=== PATIENT | female | born 1930 | race American Indian/Alaskan Native ===

== ENCOUNTER 2018-12-26 21:53 | Inpatient (IN) | payer MEDICARE, MEDICAID ==
[2018-12-26] MEDS ORDERED: dilTIAZem 25 MG/5 ML INJ IV ONE (22:20)
[2018-12-26] MEDS ORDERED: dilTIAZem 25 MG/5 ML INJ ONE (22:21)
[2018-12-26] MEDS ORDERED: AMIODARONE 150 MG in DEXTROSE 5% IN WATER 100 ML IV ONE (22:22)
[2018-12-26] MEDS ORDERED: AMIODARONE 150 MG/3 ML INJ IV ONE (22:26)
[2018-12-26] MEDS ORDERED: SODIUM CHLORIDE 0.9% 1000 ML 1,000 ML IV ONE ×2 (22:34→22:36)
[2018-12-26] MEDS ORDERED: ACETAMINOPHEN 650 MG RECT SUPP PR ONE ×2 (22:35→22:38)
[2018-12-26] MEDS ORDERED: cefTRIAXone/NS 2 GM/100 ML 2 GM/100 ML BAG IV ONE (22:38)
[2018-12-26] MEDS ORDERED: AMIODARONE 900 MG in DEXTROSE 5% IN WATER 482 ML IV SCH (23:00)
[2018-12-26 23:19] LABS: Hematocrit 40.2 % (30.3-42.9); Hemoglobin 13.2 gm/dl (10.1-14.3); Mean Corpuscular HGB Conc 33 % (30-34); Mean Corpuscular Volume 89 fl (79-97); Platelet Count 202 K/mm3 (140-440); Red Blood Count 4.53 M/mm3 (3.65-5.03); Red Cell Distribution Width 14.8 % (13.2-15.2)
--- NOTE | 2018-12-26 23:26 | XRay Report ---
CHEST 1 VIEW 2232 INDICATION / CLINICAL INFORMATION: Chest Pain. COMPARISON: None available. FINDINGS: SUPPORT DEVICES: None HEART / MEDIASTINUM: Heart size appears within normal limits. Aortic ectasia and tortuosity are seen. LUNGS / PLEURA: Increased density is noted in the right base which may be partly due to rotation but I am concerned this could represent developing pneumonitis. Left lung field is clear. No pneumothorax . ADDITIONAL FINDINGS: No significant additional findings. IMPRESSION: Possible right basilar pneumonitis. Recommend follow-up and clinical correlation. Signer Name: Emeka Limon MD Signed: 12/26/2018 11:21 PM Workstation Name: [id number]
[2018-12-26 23:31] LABS: INR 1.26 (0.87-1.13)
--- NOTE | 2018-12-26 23:37 | Emergency Department Report ---
ED Fever HPI - General Chief Complaint: Fever Stated Complaint: FEVER/AMS Time Seen by Provider: 12/26/18 22:16 Source: family - History of Present Illness Initial Comments: 88-year-old -[place] female with a past medical history dementia, presents to ED fever, cough, lethargy, and no palpitations. Upon arrival to the ED patient's Heart rate was found to be normal 140s-160s. Although she is alt ered most of the time due to dementia, patient's daughter states that she is way more altered today. No chest pain, n/v. ED Review of Systems ROS: Stated complaint: FEVER/AMS Other details as noted in HPI Comment: Unobtainable due to pts medical conditions ED Past Medical Hx - Past Medical History Previous Medical History?: Yes Hx Hypertension: Yes Hx Diabetes: Yes Hx Dementia: Yes - Social History Smoking Status: Never Smoker Substance Use Type: None ED Physical Exam - General Limitations: Altered Mental Status General appearance: in distress - Head Head exam: Present: atraumatic, normocephalic - Eye Eye exam: Present: normal appearance, PERRL, EOMI - ENT ENT exam: Present: normal exam - Neck Neck exam: Present: normal inspection - Respiratory Respiratory exam: Present: decreased breath sounds - Cardiovascular Cardiovascular Exam: Present: tachycardia - GI/Abdominal GI/Abdominal exam: Present: soft - Neurological Exam Neurological exam: Present: altered - Skin Skin exam: Present: warm, dry ED Course Vital Signs 12/26/18 12/27/18 22:15 00:02 Temperature 104.9 F H Pulse Rate 154 H 132 H Respiratory 26 H 19 Rate Blood Pressure 145/20 Blood Pressure 145/20 109/76 [Left] O2 Sat by Pulse 94 94 Oximetry ED Medical Decision Making - Lab Data Result diagrams: 12/26/18 22:44 12/26/18 22:44 - EKG Data -: EKG Interpreted by Me EKG shows normal: ST-T waves Rate: tachycardia - EKG Data Interpretation: other 12/26/18 23:37 wide complex tachycardia, 160s. - Radiology Data Radiology results: report reviewed - Medical Decision Making EKG showed irregular wide complex tachycardia, Patient received 150mg iv amiodorone, and then started on amiodorone drip. Discussed with Rugby Union Footballer. Code sepsis called. Critical Care Time: Yes Critical care time in (mins) excluding proc time.: 45 Critical care attestation.: If time is entered above; I have spent that time in minutes in the direct care of this critically ill patient, excluding procedure time. ED Disposition Clinical Impression: Sepsis due to pneumonia, Wide-complex tachycardia Disposition: DC-09 OP ADMIT IP TO THIS HOSP Is pt being admited?: Yes Does the pt Need Aspirin: Yes Condition: Critical Instructions: Bacterial Pneumonia (ED)
[2018-12-26 23:47] LABS: Calcium 11.3 mg/dL (8.4-10.2)
[2018-12-26 23:49] LABS: Chol/HDL Ratio 4.41 %
[2018-12-26 23:52] LABS: Albumin 3.4 g/dL (3.9-5); Bilirubin,Direct 0.4 mg/dL (0-0.2)
--- NOTE | 2018-12-26 23:55 | History and Physical Report ---
Medications and Allergies Allergies Allergy/AdvReac Type Severity Reaction Status Date / Time levofloxacin [From Levaquin] Allergy Unknown Verified 12/26/18 23:35 sertraline [From Zoloft] AdvReac Unknown Verified 12/26/18 23:35 strawberry AdvReac Swelling Verified 12/26/18 23:35 Active Meds: Active Medications Amiodarone HCl 900 mg/ (Dextrose) 500 mls @ 33.333 mls/hr IV DIRECT ROBERTO; Protocol Last Admin: 12/26/18 23:00 Dose: 1 mg/min, 33.333 mls/hr Documented by: Sodium Chloride (Sodium Chloride Flush Syringe 10 Ml) 10 ml IV PRN PRN PRN Reason: LINE FLUSH Exam - Constitutional Vitals: Temp Pulse Resp BP Pulse Ox 104.9 F H 154 H 26 H 145/20 94 12/26/18 22:15 12/26/18 22:15 12/26/18 22:15 12/26/18 22:15 12/26/18 22:15 Results - Labs CBC & Chem 7: 12/26/18 22:44 12/26/18 22:44 Labs: Abnormal lab results 12/26/18 12/26/18 12/26/18 Range/Units 22:44 22:44 22:44 WBC 20.5 H (4.5-11.0) K/mm3 PT 15.5 H (12.2-14.9) Sec. INR 1.26 H (0.87-1.13) APTT 41.0 H (24.2-36.6) Sec. Potassium 3.0 L (3.6-5.0) mmol/L BUN 58 H (7-17) mg/dL Creatinine 2.0 H (0.7-1.2) mg/dL Glucose 120 H (65-100) mg/dL Calcium 11.3 H (8.4-10.2) mg/dL Direct Bilirubin (0-0.2) mg/dL AST (5-40) units/L Troponin T (0.00-0.029) ng/mL NT-Pro-B Natriuret Pep 1809 H (0-900) pg/mL Albumin (3.9-5) g/dL Triglycerides (2-149) mg/dL LDL Cholesterol Direct (50-130) mg/dL HDL Cholesterol (40-59) mg/dL 12/26/18 12/26/18 12/26/18 Range/Units 22:44 22:44 23:00 WBC (4.5-11.0) K/mm3 PT (12.2-14.9) Sec. INR (0.87-1.13) APTT (24.2-36.6) Sec. Potassium (3.6-5.0) mmol/L BUN (7-17) mg/dL Creatinine (0.7-1.2) mg/dL Glucose (65-100) mg/dL Calcium 11.1 H (8.4-10.2) mg/dL Direct Bilirubin 0.4 H (0-0.2) mg/dL AST 109 H (5-40) units/L Troponin T 0.037 H (0.00-0.029) ng/mL NT-Pro-B Natriuret Pep (0-900) pg/mL Albumin 3.4 L (3.9-5) g/dL Triglycerides 201 H (2-149) mg/dL LDL Cholesterol Direct 46 L (50-130) mg/dL HDL Cholesterol 31 L (40-59) mg/dL
[2018-12-26] MEDS ORDERED: ASPIRIN 300 MG RECT SUPP PR ONE (23:58)
[2018-12-27 00:50] LABS: Calcium 10.6 mg/dL (8.4-10.2)
--- NOTE | 2018-12-27 02:45 | Cat Scan Report ---
CT CHEST WITHOUT CONTRAST INDICATION / CLINICAL INFORMATION: fever cough. TECHNIQUE: Axial CT images were obtained through the chest without contrast. All CT scans at this location are p erformed using CT dose reduction for ALARA by means of automated exposure control. COMPARISON: No prior CT. Chest radiograph dated 12/26/18 FINDINGS: HEART: Upper normal size. Moderate coronary artery calcifications. THORACIC AORTA: No significant abnormality. MEDIASTINUM and JC: Mildly prominent subcarinal lymph node is likely reactive. LUNGS: Dense airspace consolidation of the right lower lobe with air bronchograms characteristic of p neumonia. Remainder of the right lung and the left lung appear clear. Small subpleural nodule in the left lower lobe. PLEURA: No significant pleural effusion. No pneumothorax. ADDITIONAL FINDINGS: None. UPPER ABDOMEN: No significant abnormality. SKELETAL SYSTEM: No significant abnormality. IMPRESSION: 1. Right lower lobe pneumonia. Signer Name: Marbin Mckenzie MD Signed: 12/27/2018 2:41 AM Workstation Name: [id number]
[2018-12-27] MEDS ORDERED: ACETAMINOPHEN 650 MG RECT SUPP PR PRN (03:43)
[2018-12-27] MEDS ORDERED: ONDANSETRON 4 MG/2 ML INJ IV PRN (03:43)
--- NOTE | 2018-12-27 03:53 | History and Physical Report ---
History of Present Illness Date of examination: 12/27/18 History of present illness: 88 -year-old woman with a history of hypertension, diabetes, dementia was brought to the emergency room because for the last 2 weeks she has become weak decrease oral intake and less responsive per the daughter. Complained that she has a sore throat, no cough or fever Review of system is unobtainable PAST MEDICAL HISTORY:hypertension, diabetes, dementia PAST SURGICAL HISTORY: Repair, hemorrhoidectomy FAMILY HISTORY:hypertension, diabetes SOCIAL HISTORY: Denies tobacco, drugs, alcohol Medications and Allergies Allergies Allergy/AdvReac Type Severity Reaction Status Date / Time levofloxacin [From Levaquin] Allergy Unknown Verified 12/26/18 23:35 sertraline [From Zoloft] AdvReac Unknown Verified 12/26/18 23:35 strawberry AdvReac Swelling Verified 12/26/18 23:35 Home Medications Medication Instructions Recorded Confirmed Last Taken Type Albuterol Sulfate [Proair 90 mcg IH PRN 12/27/18 12/27/18 Unknown History Respiclick] Fluticasone [Flonase] 250 mcg IH PRN 12/27/18 12/27/18 Unknown History Glimepiride [Amaryl] 1 mg PO QDAY 12/27/18 12/27/18 Unknown History Hydralazine HCl 50 mg PO TID 12/27/18 12/27/18 Unknown History Sertraline [Zoloft] 100 mg PO QDAY 12/27/18 12/27/18 Unknown History hydroCHLOROthiazide [HCTZ] 25 mg PO QDAY 12/27/18 12/27/18 Unknown History traMADol [Ultram] 50 mg PO TID 12/27/18 12/27/18 Unknown History Active Meds: Active Medications Acetaminophen (Tylenol) 650 mg TN Q4H PRN PRN Reason: Pain MILD(1-3)/Fever >100.5/DUNBAR Enoxaparin Sodium (Lovenox) 30 mg SUB-Q QDAY ROBERTO Amiodarone HCl 900 mg/ (Dextrose) 500 mls @ 33.333 mls/hr IV DIRECT ROBERTO; Protocol Last Admin: 12/26/18 23:00 Dose: 1 mg/min, 33.333 mls/hr Documented by: Dextrose/Sodium Chloride (D5/0.45ns) 1,000 mls @ 75 mls/hr IV DIRECT ROBERTO Potassium Chloride (Kcl 10meq/100ml) 10 meq in 100 mls @ 100 mls/hr IV Q1H ROBERTO Stop: 12/27/18 07:59 Piperacillin Sod/Tazobactam Sod (Zosyn/Ns 2.25 Gm/50ml) 2.25 gm in 50 mls @ 100 mls/hr IV Q8HR ROBERTO; Protocol Ondansetron HCl (Zofran) 4 mg IV Q4H PRN PRN Reason: Nausea And Vomiting Sodium Chloride (Sodium Chloride Flush Syringe 10 Ml) 10 ml IV BID ROBERTO Sodium Chloride (Sodium Chloride Flush Syringe 10 Ml) 10 ml IV PRN PRN PRN Reason: LINE FLUSH Exam - Physical Exam Narrative exam: General Apperance: The patient sitting in bed no acute distress HEENT: Normocephalic, atraumatic. Pupils equally round and reactive to light, extraocular movement intact, and no sclericterus or JVD or thyromegaly or nodule. Neck supple, no carotid bruit, mucous membranes moist, no exudate or erythema Heart: S1-S2, regular is rhythm Lungs: Records at the right base , breathing comfortable Abdomen: Positive bowel sounds, soft, nontender, nondistended, no organomegaly Extremities: No edema cyanosis clubbing Skin: no rash, nodule, warm and dry Neuro:CN 2 -12 intact, motor/sensory intact, speech is fluent - Constitutional Vitals: Temp Pulse Resp BP Pulse Ox 101.4 F H 127 H 17 104/80 93 12/27/18 03:20 12/27/18 01:30 12/27/18 01:30 12/27/18 01:30 12/27/18 01:30 Results - Labs CBC & Chem 7: 12/26/18 22:44 12/26/18 23:50 Labs: Abnormal lab results 12/26/18 12/26/18 12/26/18 Range/Units 22:44 22:44 22:44 WBC 20.5 H (4.5-11.0) K/mm3 PT 15.5 H (12.2-14.9) Sec. INR 1.26 H (0.87-1.13) APTT 41.0 H (24.2-36.6) Sec. Sodium (137-145) mmol/L Potassium 3.0 L (3.6-5.0) mmol/L BUN 58 H (7-17) mg/dL Creatinine 2.0 H (0.7-1.2) mg/dL Glucose 120 H (65-100) mg/dL Lactic Acid (0.7-2.0) mmol/L Calcium 11.3 H (8.4-10.2) mg/dL Direct Bilirubin (0-0.2) mg/dL AST (5-40) units/L Troponin T (0.00-0.029) ng/mL NT-Pro-B Natriuret Pep 1809 H (0-900) pg/mL Albumin (3.9-5) g/dL Triglycerides (2-149) mg/dL LDL Cholesterol Direct (50-130) mg/dL HDL Cholesterol (40-59) mg/dL 12/26/18 12/26/18 12/26/18 Range/Units 22:44 22:44 22:44 WBC (4.5-11.0) K/mm3 PT (12.2-14.9) Sec. INR (0.87-1.13) APTT (24.2-36.6) Sec. Sodium (137-145) mmol/L Potassium (3.6-5.0) mmol/L BUN (7-17) mg/dL Creatinine (0.7-1.2) mg/dL Glucose (65-100) mg/dL Lactic Acid 2.30 H* (0.7-2.0) mmol/L Calcium 11.1 H (8.4-10.2) mg/dL Direct Bilirubin (0-0.2) mg/dL AST (5-40) units/L Troponin T 0.037 H (0.00-0.029) ng/mL NT-Pro-B Natriuret Pep (0-900) pg/mL Albumin (3.9-5) g/dL Triglycerides 201 H (2-149) mg/dL LDL Cholesterol Direct 46 L (50-130) mg/dL HDL Cholesterol 31 L (40-59) mg/dL 12/26/18 12/26/18 12/27/18 Range/Units 23:00 23:50 00:22 WBC (4.5-11.0) K/mm3 PT (12.2-14.9) Sec. INR (0.87-1.13) APTT (24.2-36.6) Sec. Sodium 147 H (137-145) mmol/L Potassium 2.9 L* (3.6-5.0) mmol/L BUN 58 H (7-17) mg/dL Creatinine 2.1 H (0.7-1.2) mg/dL Glucose 123 H (65-100) mg/dL Lactic Acid 2.40 H* (0.7-2.0) mmol/L Calcium 10.6 H (8.4-10.2) mg/dL Direct Bilirubin 0.4 H (0-0.2) mg/dL AST 109 H (5-40) units/L Troponin T (0.00-0.029) ng/mL NT-Pro-B Natriuret Pep (0-900) pg/mL Albumin 3.4 L (3.9-5) g/dL Triglycerides (2-149) mg/dL LDL Cholesterol Direct (50-130) mg/dL HDL Cholesterol (40-59) mg/dL - Imaging and Cardiology CT scan - chest: report reviewed Assessment and Plan Assessment Pneumonia, possible aspiration Wide complex tachycardia Hypokalemia Hypernatremia Renal failure, ?acute Hypertension Diabetes Dementia Plan Admit to medicine Start IV Zosyn, IV fluids, replete potassium check cardiac enzymes, echo, consult cardiology Continue amiodarone drip Consult Critical care, obtain renal US Check fingerstick, consult speech for swallow eval Nurse unable to do swallow eval DVT prophalaxis
[2018-12-27] MEDS ORDERED: PIPERACIL-TAZO 2.25 GM/50 ML 2.25 GM/50 ML BAG IV SCH ×2 (04:00→06:00)
[2018-12-27 04:11] LABS: Total Cells Counted 100
[2018-12-27 04:12] LABS: Basophils % (Manual) 0 % (0.0-1.8); Eosinophils % (Manual) 0 % (0.0-4.3); Monocytes % (Manual) 0 % (0.0-7.3)
[2018-12-27 04:13] LABS: Anisocytosis Few
[2018-12-27 04:14] LABS: Large Platelets 1+; Platelet Estimate Consistent w Auto
[2018-12-27 04:36] LABS: Hematocrit 35.7 % (30.3-42.9); Hemoglobin 11.5 gm/dl (10.1-14.3); Mean Corpuscular HGB Conc 32 % (30-34); Mean Corpuscular Volume 91 fl (79-97); Red Blood Count 3.95 M/mm3 (3.65-5.03); Red Cell Distribution Width 14.9 % (13.2-15.2)
[2018-12-27 04:37] LABS: Creatine Kinase MB 1.6 ng/mL (0.0-4.0)
[2018-12-27 04:38] LABS: Calcium 9.4 mg/dL (8.4-10.2)
--- NOTE | 2018-12-27 04:55 | Ultrasound Report ---
ULTRASOUND RENAL INDICATION / CLINICAL INFORMATION: Renal failure. COMPARISON: None available. FINDINGS: RIGHT KIDNEY: Length = 8.3 cm. - Echogenicity: Mildly echogenic. - Cortical Thickness: Normal. - Hydronephrosis: None. - Cyst or mass: 1.2 cm cyst. - Stones: None seen. LEFT KIDNEY: Length = 11.2 cm. - Echogenicity: Mildly echogenic. - Cortical Thickness: Normal. - Hydronephrosis: None. - Cyst or mass: 3.4 cm cyst. - Stones: None seen. URINARY BLADDER: No significant abnormality. FREE FLUID: None. ADDITIONAL FINDINGS: None. IMPRESSION: 1. Mildly echogenic kidneys bilaterally suggesting medical renal disease. No hydronephrosis. Signer Name: Marbin Mckenzie MD Signed: 12/27/2018 4:50 AM Workstation Name: [id number]
[2018-12-27] MEDS: POTASSIUM CHLORIDE 10 MEQ 10 MEQ/100 ML BAG IV SCH ×4 (05:10→08:45)
[2018-12-27] MEDS: D5W/0.45% NACL 1,000 ML IV SCH ×2 (05:12→21:00)
[2018-12-27 05:48] LABS: Basophils % (Manual) 0 % (0.0-1.8); Eosinophils % (Manual) 0 % (0.0-4.3); Total Cells Counted 100
[2018-12-27 05:49] LABS: Anisocytosis Few; Ovalocytes Few
[2018-12-27 05:50] LABS: Large Platelets 1+; Mean Platelet Volume 11.6 fl (6-12); Platelet Count 147 K/mm3 (140-440); Platelet Estimate Consistent w Auto
--- NOTE | 2018-12-27 09:55 | Consultation ---
History of Present Illness Consult date: 12/27/18 Requesting physician: TARIQ RUBIO Consult reason: atrial fibrillation, tachycardia History of present illness: The pt is an 88-year-old female with a past medical history of HTN and dementia. She is confused due to dementia and thus HPI is obtained per her granddaughter (who pt lives with) at bedside. Pt presented for evaluation of lethargy and decreased PO intake for the past 2 days. Pt's granddaughter states that pt presented to [place] ED on 12/15/2018 for evaluation of worsening dementia and right shoulder pain x 10 years, no recent fall or trauma, last fall was about 1 month ago (per [place] records). Shoulder XR was negative for fracture or dislocation, head CT with NAF. Pt was found to have UTI and was discharge home on liquid cipro, although pt's pharmacy was unable to fill this prescription and thus pt never received abx. Upon arrival to ED yesterday, pt was found to be in AFib with RVR and was initiated on IV amiodarone overnight. Admission ECG shows AFib with RVR, HR 145bpm, with RBBB and LAFB. Pt's granddaughter denies any known prior cardiac issues, including CAD, AMI, HF or arrhythmia. Pt's PCP is Dr. Richards. 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 On evaluation, pt is noted to be in paroxysmal atrial fibrillation with HR 90s - 120s. She is currently on amio gtt. Past History Past Medical History: hypertension, other (dementia) Medications and Allergies Allergies Allergy/AdvReac Type Severity Reaction Status Date / Time levofloxacin [From Levaquin] Allergy Unknown Verified 12/26/18 23:35 sertraline [From Zoloft] AdvReac Unknown Verified 12/26/18 23:35 strawberry AdvReac Swelling Verified 12/26/18 23:35 Home Medications Medication Instructions Recorded Confirmed Last Taken Type Albuterol Sulfate [Proair 90 mcg IH PRN 12/27/18 12/27/18 Unknown History Respiclick] Fluticasone [Flonase] 250 mcg IH PRN 12/27/18 12/27/18 Unknown History Glimepiride [Amaryl] 1 mg PO QDAY 12/27/18 12/27/18 Unknown History Hydralazine HCl 50 mg PO TID 12/27/18 12/27/18 Unknown History Sertraline [Zoloft] 100 mg PO QDAY 12/27/18 12/27/18 Unknown History hydroCHLOROthiazide [HCTZ] 25 mg PO QDAY 12/27/18 12/27/18 Unknown History traMADol [Ultram] 50 mg PO TID 12/27/18 12/27/18 Unknown History Active Meds: Active Medications Acetaminophen (Tylenol) 650 mg GA Q4H PRN PRN Reason: Pain MILD(1-3)/Fever >100.5/DUNBAR Dextrose (D50w (25gm) Syringe) 50 ml IV PRN PRN PRN Reason: Hypoglycemia Enoxaparin Sodium (Lovenox) 30 mg SUB-Q QDAY ROBERTO Last Admin: 12/27/18 09:32 Dose: 30 mg Documented by: Amiodarone HCl 900 mg/ (Dextrose) 500 mls @ 33.333 mls/hr IV DIRECT ROBERTO; Protocol Last Titration: 12/27/18 05:01 Dose: 0.5 mg/min, 16.667 mls/hr Documented by: Dextrose/Sodium Chloride (D5/0.45ns) 1,000 mls @ 75 mls/hr IV DIRECT ROBERTO Last Admin: 12/27/18 05:12 Dose: 75 mls/hr Documented by: Piperacillin Sod/Tazobactam Sod (Zosyn/Ns 2.25 Gm/50ml) 2.25 gm in 50 mls @ 100 mls/hr IV Q8H ROBERTO; Protocol Last Admin: 12/27/18 04:25 Dose: 100 mls/hr Documented by: Ondansetron HCl (Zofran) 4 mg IV Q4H PRN PRN Reason: Nausea And Vomiting Sodium Chloride (Sodium Chloride Flush Syringe 10 Ml) 10 ml IV BID ROBERTO Last Admin: 12/27/18 09:33 Dose: 10 ml Documented by: Sodium Chloride (Sodium Chloride Flush Syringe 10 Ml) 10 ml IV PRN PRN PRN Reason: LINE FLUSH Review of Systems ROS unobtainable: due to mental status All systems: negative (no current pain) Physical Examination Vital Signs Pulse Resp 151 H 22 12/26/18 22:02 12/26/18 22:02 General appearance: other (agitated) HEENT: Positive: PERRL Neck: Positive: neck supple, trachea midline Cardiac: Positive: irregularly irregular, S1/S2 Lungs: Positive: Decreased Breath Sounds Neuro: Positive: Grossly Intact, Other (agitated) Abdomen: Negative: Tender Skin: Negative: Rash Musculoskeletal: No Pain Extremities: Absent: edema Results 12/27/18 03:55 12/27/18 03:55 Cardiac Enzymes 12/26/18 12/27/18 Range/Units 23:00 03:55 AST 109 H (5-40) units/L CK-MB (CK-2) 1.6 (0.0-4.0) ng/mL Coagulation 12/26/18 Range/Units 22:44 PT 15.5 H (12.2-14.9) Sec. INR 1.26 H (0.87-1.13) APTT 41.0 H (24.2-36.6) Sec. Lipids 12/26/18 Range/Units 22:44 Triglycerides 201 H (2-149) mg/dL Cholesterol 137 (50-199) mg/dL HDL Cholesterol 31 L (40-59) mg/dL Cholesterol/HDL Ratio 4.41 % CBC 12/26/18 12/27/18 Range/Units 22:44 03:55 WBC 20.5 H 16.7 H (4.5-11.0) K/mm3 RBC 4.53 3.95 (3.65-5.03) M/mm3 Hgb 13.2 11.5 (10.1-14.3) gm/dl Hct 40.2 35.7 (30.3-42.9) % Plt Count 202 147 (140-440) K/mm3 Comprehensive Metabolic Panel 12/26/18 12/26/18 12/26/18 Range/Units 22:44 22:44 23:00 Sodium 141 (137-145) mmol/L Potassium 3.0 L (3.6-5.0) mmol/L Chloride 98.0 (98-107) mmol/L Carbon Dioxide 23 (22-30) mmol/L BUN 58 H (7-17) mg/dL Creatinine 2.0 H (0.7-1.2) mg/dL Glucose 120 H (65-100) mg/dL Calcium 11.3 H 11.1 H (8.4-10.2) mg/dL Direct Bilirubin 0.4 H (0-0.2) mg/dL Indirect Bilirubin 0.2 mg/dL AST 109 H (5-40) units/L ALT 35 (7-56) units/L Alkaline Phosphatase 84 (35-129) units/L Total Protein 6.7 (6.3-8.2) g/dL Albumin 3.4 L (3.9-5) g/dL 12/26/18 12/27/18 Range/Units 23:50 03:55 Sodium 147 H 147 H (137-145) mmol/L Potassium 2.9 L* 3.0 L (3.6-5.0) mmol/L Chloride 102.3 106.0 (98-107) mmol/L Carbon Dioxide 24 22 (22-30) mmol/L BUN 58 H 53 H (7-17) mg/dL Creatinine 2.1 H 1.8 H (0.7-1.2) mg/dL Glucose 123 H 99 (65-100) mg/dL Calcium 10.6 H 9.4 (8.4-10.2) mg/dL Direct Bilirubin (0-0.2) mg/dL Indirect Bilirubin mg/dL AST (5-40) units/L ALT (7-56) units/L Alkaline Phosphatase (35-129) units/L Total Protein (6.3-8.2) g/dL Albumin (3.9-5) g/dL - Imaging and Cardiology Echo: pending EKG: report reviewed, image reviewed EKG interpretations - Telemetry EKG Rhythm: Atrial Fibrillation - EKG Supraventricular dysrhythmia: atrial fibrillation Assessment and Plan Paroxysmal atrial fibrillation with RVR New diagnosis. Likely precipitated by acute infection/sepsis. On amio gtt. Initiate PO lopressor and titrate as tolerated. Initiate heparin gtt. Pt's granddaughter reports that pt does fall at times and forgets to use her walker. She will discuss initiation of alf AC with family members as pt's fall risk may outweigh the benefits of alf systemic AC. Will continue heparin gtt in the interim. Obtain echo. Obtain thyroid profile. RBBB Appears chronic when compared to [place] ECGs from 2012. Obtain echo. RLL pneumonia, possible aspiration No current clinical evidence of respiratory compromise. Management per pulmonary. ? Sepsis / recent UTI Leukocytosis. T Max 104.9 thus far. Abx per primary. Hypokalemia / Hypernatremia Replete lytes PRN. F/u BMP in AM. ROSEMARIE Hypertension Dementia Advanced age The patient has been seen in conjunction with Dr. Stewart who agrees with the assessment and plan of care.
[2018-12-27 09:58] LABS: Creatine Kinase MB 2.2 ng/mL (0.0-4.0)
[2018-12-27] MEDS ORDERED: ENOXAPARIN 30 MG/0.3 ML INJ SUB-Q SCH ×2 (10:00)
--- NOTE | 2018-12-27 10:47 | Consultation ---
History of Present Illness Consult date: 12/27/18 Requesting physician: RILEY THOMAS History of present illness: The pt is an 88-year-old female with a past medical history of HTN and dementia. She is confused due to dementia and thus HPI is obtained per her daughter at bedside. Pt presented for evaluation of lethargy and decreased PO intake for the past 2 days. Pt's granddaughter states that pt presented to [facility] ED on 12/15/2018 for evaluation of worsening dementia and right shoulder pain x 10 years, no recent fall or trauma, last fall was about 1 month ago. Shoulder XR was negative for fracture or dislocation, head CT with NAF. Pt was found to have UTI and was discharge home on liquid cipro, although pt's pharmacy was unable to fill this prescription and thus pt never received abx. Upon arrival to ED yesterday, pt was found to be in AFib with RVR and was initiated on IV amiod arone overnight. She was also febrile, with a cough. A CXR done in the ED- images personally reviewed by me- showed a right lower lobe infiltrate. She has been admitted to the ICU and I have been consulted for critical care management. The patient was seen and examined. Vitals, labs, medications, chart and imaging reviewed. Her daughter is at the bedside. PAST MEDICAL HISTORY:hypertension, diabetes, dementia PAST SURGICAL HISTORY: Repair- hemorrhoidectomy FAMILY HISTORY:hypertension, diabetes SOCIAL HISTORY: Denies tobacco, drugs, alcohol Past History Past Medical History: hypertension, other (dementia) Medications and Allergies Allergies Allergy/AdvReac Type Severity Reaction Status Date / Time levofloxacin [From Levaquin] Allergy Unknown Verified 12/26/18 23:35 sertraline [From Zoloft] AdvReac Unknown Verified 12/26/18 23:35 strawberry AdvReac Swelling Verified 12/26/18 23:35 Home Medications Medication Instructions Recorded Confirmed Last Taken Type Albuterol Sulfate [Proair 90 mcg IH PRN 12/27/18 12/27/18 Unknown History Respiclick] Fluticasone [Flonase] 250 mcg IH PRN 12/27/18 12/27/18 Unknown History Glimepiride [Amaryl] 1 mg PO QDAY 12/27/18 12/27/18 Unknown History Hydralazine HCl 50 mg PO TID 12/27/18 12/27/18 Unknown History Sertraline [Zoloft] 100 mg PO QDAY 12/27/18 12/27/18 Unknown History hydroCHLOROthiazide [HCTZ] 25 mg PO QDAY 12/27/18 12/27/18 Unknown History traMADol [Ultram] 50 mg PO TID 12/27/18 12/27/18 Unknown History Active Meds: Active Medications Acetaminophen (Tylenol) 650 mg ID Q4H PRN PRN Reason: Pain MILD(1-3)/Fever >100.5/DUNBAR Dextrose (D50w (25gm) Syringe) 50 ml IV PRN PRN PRN Reason: Hypoglycemia Heparin Sodium (Porcine) (Heparin 10,000 Units/10 Ml) 2,500 unit 40 unit/kg (2500 unit) IV ONCE ONE Stop: 12/27/18 11:01 Amiodarone HCl 900 mg/ (Dextrose) 500 mls @ 33.333 mls/hr IV DIRECT ROBERTO; Protocol Last Titration: 12/27/18 05:01 Dose: 0.5 mg/min, 16.667 mls/hr Documented by: Dextrose/Sodium Chloride (D5/0.45ns) 1,000 mls @ 75 mls/hr IV DIRECT ROBERTO Last Admin: 12/27/18 05:12 Dose: 75 mls/hr Documented by: Azithromycin 500 mg/ Sodium (Chloride) 250 mls @ 250 mls/hr IV Q24HR ROBERTO; Prot ocol Ceftriaxone Sodium (Rocephin/Ns 2 Gm/100 Ml) 2 gm in 100 mls @ 200 mls/hr IV Q24HR ROBERTO; Protocol Heparin Sodium/Sodium Chloride (Heparin/ 0.45% Nacl-25,000 Unit/500 Ml) 25,000 unit in 500 mls @ 18 mls/hr IV TITR ROBERTO; Protocol Ondansetron HCl (Zofran) 4 mg IV Q4H PRN PRN Reason: Nausea And Vomiting Sodium Chloride (Sodium Chloride Flush Syringe 10 Ml) 10 ml IV BID ROBERTO Last Admin: 12/27/18 09:33 Dose: 10 ml Documented by: Sodium Chloride (Sodium Chloride Flush Syringe 10 Ml) 10 ml IV PRN PRN PRN Reason: LINE FLUSH Review of Systems ROS unobtainable: due to mental status Physical Examination Vital signs: Vital Signs Pulse Resp 151 H 22 12/26/18 22:02 12/26/18 22:02 Vitals reviewed. Tmax 102.4, Not in any acute distress General Appearance: The patient sitting in bed no acute distress, chronically ill looking, mumbling HEENT: Normocephalic, atraumatic. Pupils equally round and reactive to light, extraocular movement intact, and no sclericterus or JVD or thyromegaly or nodule. Neck supple, no carotid bruit, mucous membranes dry, no exudate or erythema Heart: Irregular, S1,S2 Lungs: Decreased AE bilaterally, right basilar coarse BS Abdomen: Positive bowel sounds, soft, nontender, nondistended, no organomegaly Extremities: No edema cyanosis clubbing Skin: no rash, nodule, warm and dry Neuro:Moves all extremities, inconsistently obeying commands Results - Laboratory Findings CBC and BMP: 12/27/18 10:37 12/27/18 03:55 PT/INR, D-dimer PT 15.5 Sec. (12.2-14.9) H 12/26/18 22:44 INR 1.26 (0.87-1.13) H 12/26/18 22:44 Abnormal lab findings: Abnormal Labs 12/26/18 12/26/18 12/26/18 22:44 22:44 22:44 WBC 20.5 H Seg Neuts % (Manual) 95.0 H Lymphocytes % (Manual) 4.0 L Seg Neutrophils # Man 19.5 H Lymphocytes # (Manual) 0.8 L PT 15.5 H INR 1.26 H APTT 41.0 H Sodium Potassium 3.0 L BUN 58 H Creatinine 2.0 H Glucose 120 H Lactic Acid Calcium 11.3 H Direct Bilirubin AST Total Creatine Kinase Troponin T NT-Pro-B Natriuret Pep 1809 H Albumin Triglycerides LDL Cholesterol Direct HDL Cholesterol 12/26/18 12/26/18 12/26/18 22:44 22:44 22:44 WBC Seg Neuts % (Manual) Lymphocytes % (Manual) Seg Neutrophils # Man Lymphocytes # (Manual) PT INR APTT Sodium Potassium BUN Creatinine Glucose Lactic Acid 2.30 H* Calcium 11.1 H Direct Bilirubin AST Total Creatine Kinase Troponin T 0.037 H NT-Pro-B Natriuret Pep Albumin Triglycerides 201 H LDL Cholesterol Direct 46 L HDL Cholesterol 31 L 12/26/18 12/26/18 12/27/18 23:00 23:50 00:22 WBC Seg Neuts % (Manual) Lymphocytes % (Manual) Seg Neutrophils # Man Lymphocytes # (Manual) PT INR APTT Sodium 147 H Potassium 2.9 L* BUN 58 H Creatinine 2.1 H Glucose 123 H Lactic Acid 2.40 H* Calcium 10.6 H Direct Bilirubin 0.4 H AST 109 H Total Creatine Kinase Troponin T NT-Pro-B Natriuret Pep Albumin 3.4 L Triglycerides LDL Cholesterol Direct HDL Cholesterol 12/27/18 12/27/18 12/27/18 03:55 03:55 09:26 WBC 16.7 H Seg Neuts % (Manual) 95.0 H Lymphocytes % (Manual) 3.0 L Seg Neutrophils # Man 15.9 H Lymphocytes # (Manual) 0.5 L PT INR APTT Sodium 147 H Potassium 3.0 L BUN 53 H Creatinine 1.8 H Glucose Lactic Acid Calcium Direct Bilirubin AST Total Creatine Kinase 248 H 233 H Troponin T NT-Pro-B Natriuret Pep Albumin Triglycerides LDL Cholesterol Direct HDL Cholesterol - Diagnostic Findings Chest x-ray: image reviewed (Rotated, RLL infiltrate-appears pleuroparenchymal) CT scan - chest: report reviewed, image reviewed Assessment and Plan Sepsis RLL pneumonia- probably aspiration Acute toxic-metabolic encephalopathy Atrial fibrillation with RVR Leukocytosis ROSEMARIE Hypokalemia -Perez cultures -Sepsis protocol -Antibiotics- Rocephin and azithromycin( target pulmonary source) -While on azithromycin and amiodarone, monitor QTC -Place a small bowel feeding tube, once placement is confirmed, start tube feedings and free water flushes -Hypotonic solution and free water to correct hypernatremia -Gentle IV hydration for ROSEMARIE -Avoid nephrotoxins and adjust all medication dosing for GFR and CrCL -VTE prophylaxis- history of recurrent fall, may not be an ideal candidate fro therapeutic anticoagulation ( defer cardiology) -Management of Atrial fibrillation per Cards -PT/OT to evaluate and treat -Aspiration precautions, HOB>40 -Replete electrolytes -Serial BMPs -Avoid delirium- maintenance of sleep wake cycle -Chronic home medications -Falls precautions CONDITION: CRITICAL PROGNOSIS: GUARDED CODE STATUS: FULL CODE Discussed care plan extensively with RT and RN at the bedside. The high probability of a clinically significant, sudden or life-threatening deterioration of the respiratory, cardiovascular, neurology, endocrine system(s) required my full and direct attention, intervention and personal management. The aggregate critical care time was [35] minutes without overlap. Time includes spent on; [x] Data Review and interpretation [x] Patient assessment and monitoring of vital signs [x] Documentation [x] Medication orders and management
[2018-12-27] MEDS ORDERED: HEPARIN 10,000 UNITS/10 ML VIAL IV ONE (11:00)
[2018-12-27] MEDS: AZITHROMYCIN 500 MG in SODIUM CHLORIDE 0.9% 250ML 250 ML IV SCH (11:07)
[2018-12-27] MEDS: cefTRIAXone/NS 2 GM/100 ML 2 GM/100 ML BAG IV SCH (11:08)
[2018-12-27 11:09] LABS: Hematocrit 36.2 % (30.3-42.9); Hemoglobin 11.7 gm/dl (10.1-14.3)
[2018-12-27] MEDS: HEPARIN/ 0.45% NACL DRIP 25,000 UNIT/500 ML BAG IV SCH (11:10)
[2018-12-27 11:19] LABS: INR 1.27 (0.87-1.13)
[2018-12-27] MEDS: MORPHINE 2 MG/1 ML INJ IV PRN (11:54)
--- NOTE | 2018-12-27 13:45 | XRay Report ---
ABDOMEN 1 VIEW(S) INDICATION / CLINICAL INFORMATION: Dobhoff placement. COMPARISON: None available. FINDINGS: TUBES / LINES: The Dobbhoff tube terminates in the distal stomach or just within the duodenum BOWEL GAS PATTERN: No significant abnormality. FREE AIR / EXTRALUMINAL GAS: None seen. ADDITIONAL FINDINGS: Cholecystectomy clips are noted in the right upper quadrant. IMPRESSION: No significant abnormality. Dobbhoff tube as described. Signer Name: Patric Fontanez Jr, MD Signed: 12/27/2018 1:41 PM Workstation Name: [id number]
[2018-12-27] MEDS ORDERED: SODIUM BICARBONATE 325 MG TAB FEEDTUBE PRN (13:47)
[2018-12-27] MEDS ORDERED: LIPASE 10,500/PROTEASE 25,000/AMYLASE 43,750 (UNITS) DR CAP FEEDTUBE PRN (13:47)
[2018-12-27] MEDS ORDERED: SIMPLE SYRUP 15 ML FEEDTUBE PRN ×2 (13:47)
[2018-12-27] MEDS: METOPROLOL TARTRATE 25 MG TAB PO SCH ×2 (15:00→20:15)
--- NOTE | 2018-12-27 16:56 | Event Note ---
Date: 12/27/18 patient seen and examined 88 -year-old woman with a history of hypertension, diabetes, dementia was brought to the emergency room because for the last 2 weeks she has become weak decrease oral intake and less responsive per the daughter. cont current Mx, follow cardiology recommendation
[2018-12-27] MEDS: LIDOCAINE 5% 1 EACH PATCH TD SCH (18:20)
[2018-12-27] MEDS: DEXTROSE 50% IN WATER (25GM) 50 ML SYRINGE IV PRN ×2 (18:25→23:40)
[2018-12-27] MEDS: traMADol 50 MG TAB PO SCH (20:10)
--- NOTE | 2018-12-27 21:24 | XRay Report ---
ABDOMEN AP PORTABLE 2046 INDICATION: dobbhoff tube placement COMPARISON: [id number] FINDINGS: Feeding tube extends well into the area of the distal stomach or probably the duodenum, sim ilar to prior study Signer Name: Emeka Limon MD Signed: 12/27/2018 9:19 PM Workstation Name: [id number]
[2018-12-28] MEDS: traMADol 50 MG TAB PO SCH ×3 (08:00→20:20)
[2018-12-28] MEDS: METOPROLOL TARTRATE 25 MG TAB PO SCH ×3 (08:00→20:21)
[2018-12-28] MEDS: LIDOCAINE 5% 1 EACH PATCH TD SCH (10:00)
[2018-12-28] MEDS: cefTRIAXone/NS 2 GM/100 ML 2 GM/100 ML BAG IV SCH (10:00)
[2018-12-28] MEDS: SERTRALINE 100 MG TAB PO SCH (10:00)
[2018-12-28] MEDS: AZITHROMYCIN 500 MG in SODIUM CHLORIDE 0.9% 250ML 250 ML IV SCH (11:00)
[2018-12-28 11:04] LABS: Hematocrit 32.4 % (30.3-42.9); Hemoglobin 10.6 gm/dl (10.1-14.3); Mean Corpuscular HGB Conc 33 % (30-34); Mean Corpuscular Volume 89 fl (79-97); Platelet Count 145 K/mm3 (140-440); Red Blood Count 3.64 M/mm3 (3.65-5.03); Red Cell Distribution Width 15.3 % (13.2-15.2)
[2018-12-28] MEDS: D5W/0.45% NACL 1,000 ML IV SCH (11:10)
--- NOTE | 2018-12-28 11:17 | Progress Note ---
Assessment and Plan Paroxysmal atrial fibrillation with RVR New diagnosis. Likely precipitated by acute infection/sepsis. Currently in SR with brief bouts of AFib overnight. Off amio gtt. Cont PO lopressor and titrate as tolerated. Cont heparin gtt. Pt's granddaughter reports that pt does fall at times and forgets to use her walker. She will discuss initiation of termite exterminator AC with family members as pt's fall risk may outweigh the benefits of termite exterminator systemic AC. Will continue heparin gtt in the interim. Echo reviewed - EF 50-55%, abnormal diastolic function. Thyroid profile WNL. RBBB Appears chronic when compared to [place] ECGs from 2013. Echo reviewed - EF 50-55%, abnormal diastolic function. RLL pneumonia, possible aspiration No current clinical evidence of respiratory compromise. Management per pulmonary. ? Sepsis / recent UTI Leukocytosis. T Max 104.9 thus far. Abx per primary. Hypokalemia / Hypernatremia Replete lytes PRN. F/u BMP. ROSEMARIE F/u BMP today. Hypertension Stable Dementia Pt initiated on tube feeding per primary team as she is refusing to eat and unable to complete swallow evaluation due to confusion. Advanced age Cont lopressor and heparin gtt. Will attempt to readdress risks and benefits of halfway OAC with pt's family members. Pt may tx out of CCU to telemetry from cardiology standpoint. The patient has been seen in conjunction with Dr. Stewart who agrees with the assessment and plan of care. Subjective Date of service: 12/28/18 Principal diagnosis: AFib; PNA Interval history: pt resting in bed, appears less agitated today, no family at bedside. in SR with brief bouts of AFib overnight. Off amio gtt. Objective Last Vital Signs Temp 99.6 F 12/28/18 08:00 Pulse 104 H 12/28/18 11:00 Resp 18 12/28/18 11:00 BP 123/81 12/28/18 11:00 Pulse Ox 99 12/28/18 11:00 - Physical Examination General: No Apparent Distress HEENT: Positive: PERRL Neck: Positive: neck supple, trachea midline Cardiac: Positive: Reg Rate and Rhythm, S1/S2 Lungs: Positive: Decreased Breath Sounds Neuro: Positive: Grossly Intact Abdomen: Negative: Tender Skin: Negative: Rash Musculoskeletal: No Pain Extremities: Absent: edema - Labs and Meds Coagulation 12/27/18 Range/Units 10:37 PT 15.6 H (12.2-14.9) Sec. INR 1.27 H (0.87-1.13) APTT 32.0 (24.2-36.6) Sec. CBC 12/28/18 Range/Units 10:30 WBC 8.7 (4.5-11.0) K/mm3 RBC 3.64 L (3.65-5.03) M/mm3 Hgb 10.6 (10.1-14.3) gm/dl Hct 32.4 (30.3-42.9) % Plt Count 145 (140-440) K/mm3 - Imaging and Cardiology EKG: report reviewed, image reviewed Echo: report reviewed - Telemetry EKG Rhythm: Sinus Rhythm
--- NOTE | 2018-12-28 11:29 | Progress Note ---
Assessment and Plan Sepsis RLL pneumonia- probably aspiration Acute toxic-metabolic encephalopathy Atrial fibrillation with RVR Leukocytosis ROSEMARIE Hypokalemia - follow cultures (NGTD) - ST evaluation - prn albuterol - begin GI prophylaxis with Pepcid - continue antibiotics (Rocephin and azithromycin) - While on azithromycin and amiodarone continue to monitor QTC - continue enteral feedings and free water flushes - Gentle IV hydration for ROSEMARIE - Avoid nephrotoxins and adjust all medication dosing for GFR and CrCL - VTE prophylaxis (on IV heparin) - Management of Atrial fibrillation per Cards - PT/OT to evaluate and treat - Aspiration precautions, HOB>40 - Replete electrolytes as necessary - Avoid delirium / maintenance of sleep wake cycle - continue pertinent chronic home medications - Falls precautions ... re-evaluate in am & prn .... OK to transfer to medical floor Subjective Date of service: 12/28/18 Principal diagnosis: Sepsis; RLL PNA; Acute encephalopathy; A-Fib with RVR ROSEMARIE; Hypokalemia Interval history: Patient is seen today for: Sepsis; RLL pneumonia (probably aspiration); Acute toxic-metabolic encephalopathy; Atrial fibrillation with RVR; Leukocytosis; ROSEMARIE; Hypokalemia Seen and examined at bedside; 24-hour events reviewed; nursing and respiratory care staff consulted; no adverse overnight events reported to me; resting peacefully in bed; no emesis reported but oropharyngeal secretions noted; AMS is persistent; afebrile; remains on supplemental oxygen therapy Objective Vital Signs - 12hr 12/27/18 12/27/18 12/28/18 23:30 23:46 00:00 Temperature 99.1 F Pulse Rate 102 H 89 104 H Pulse Rate [ 91 H From Monitor] Pulse Rate [ 91 H Right Dorsalis Pedis] Respiratory 17 20 22 Rate Blood Pressure 112/74 112/74 126/66 O2 Sat by Pulse 99 98 73 L Oximetry 12/28/18 12/28/18 12/28/18 00:04 00:16 00:30 Temperature Pulse Rate 96 H 94 H 78 Pulse Rate [ From Monitor] Pulse Rate [ Right Dorsalis Pedis] Respiratory 30 H 23 17 Rate Blood Pressure 126/66 126/66 126/66 O2 Sat by Pulse 98 100 100 Oximetry 12/28/18 12/28/18 12/28/18 00:46 01:00 01:16 Temperature Pulse Rate 77 84 98 H Pulse Rate [ From Monitor] Pulse Rate [ Right Dorsalis Pedis] Respiratory 17 21 19 Rate Blood Pressure 126/66 126/59 126/59 O2 Sat by Pulse 98 95 98 Oximetry 12/28/18 12/28/18 12/28/18 01:30 01:46 02:00 Temperature Pulse Rate 77 91 H 99 H Pulse Rate [ From Monitor] Pulse Rate [ Right Dorsalis Pedis] Respiratory 14 17 14 Rate Blood Pressure 126/59 126/59 132/93 O2 Sat by Pulse 97 96 96 Oximetry 12/28/18 12/28/18 12/28/18 02:16 02:30 02:46 Temperature Pulse Rate 81 85 80 Pulse Rate [ From Monitor] Pulse Rate [ Right Dorsalis Pedis] Respiratory 14 18 18 Rate Blood Pressure 132/93 132/93 132/93 O2 Sat by Pulse 98 90 98 Oximetry 12/28/18 12/28/18 12/28/18 03:00 03:16 03:30 Temperature Pulse Rate 80 74 80 Pulse Rate [ From Monitor] Pulse Rate [ Right Dorsalis Pedis] Respiratory 14 20 38 H Rate Blood Pressure 123/69 132/93 132/93 O2 Sat by Pulse 98 99 99 Oximetry 12/28/18 12/28/18 12/28/18 03:46 04:00 04:16 Temperature 99.6 F Pulse Rate 79 82 87 Pulse Rate [ 88 From Monitor] Pulse Rate [ 88 Right Dorsalis Pedis] Respiratory 14 14 16 Rate Blood Pressure 132/93 116/65 116/65 O2 Sat by Pulse 99 96 99 Oximetry 12/28/18 12/28/18 12/28/18 04:30 04:46 05:00 Temperature Pulse Rate 83 83 90 Pulse Rate [ From Monitor] Pulse Rate [ Right Dorsalis Pedis] Respiratory 18 14 12 Rate Blood Pressure 116/65 116/65 109/62 O2 Sat by Pulse 97 96 97 Oximetry 12/28/18 12/28/18 12/28/18 05:16 05:30 05:46 Temperature Pulse Rate 77 77 92 H Pulse Rate [ From Monitor] Pulse Rate [ Right Dorsalis Pedis] Respiratory 19 14 19 Rate Blood Pressure 109/62 109/62 109/62 O2 Sat by Pulse 100 99 99 Oximetry 12/28/18 12/28/18 12/28/18 06:00 06:16 06:30 Temperature Pulse Rate 79 76 83 Pulse Rate [ From Monitor] Pulse Rate [ Right Dorsalis Pedis] Respiratory 12 18 24 Rate Blood Pressure 117/60 109/62 109/62 O2 Sat by Pulse 99 100 99 Oximetry 12/28/18 12/28/18 12/28/18 06:46 07:00 07:16 Temperature Pulse Rate 78 77 78 Pulse Rate [ From Monitor] Pulse Rate [ Right Dorsalis Pedis] Respiratory 18 15 23 Rate Blood Pressure 117/60 126/62 126/62 O2 Sat by Pulse 100 98 100 Oximetry 12/28/18 12/28/18 12/28/18 07:30 07:46 08:00 Temperature 99.6 F Pulse Rate 88 86 76 Pulse Rate [ 89 From Monitor] Pulse Rate [ 89 Right Dorsalis Pedis] Respiratory 15 16 12 Rate Blood Pressure 126/62 126/62 128/60 O2 Sat by Pulse 100 100 99 Oximetry 12/28/18 12/28/18 12/28/18 08:16 08:30 08:46 Temperature Pulse Rate 81 85 96 H Pulse Rate [ From Monitor] Pulse Rate [ Right Dorsalis Pedis] Respiratory 14 20 20 Rate Blood Pressure 128/60 128/60 128/60 O2 Sat by Pulse 99 99 98 Oximetry 12/28/18 12/28/18 12/28/18 09:00 09:16 09:30 Temperature Pulse Rate 104 H 78 87 Pulse Rate [ From Monitor] Pulse Rate [ Right Dorsalis Pedis] Respiratory 15 12 18 Rate Blood Pressure 128/60 128/60 O2 Sat by Pulse 98 99 100 Oximetry 12/28/18 12/28/18 12/28/18 09:34 09:46 10:00 Temperature Pulse Rate 80 76 Pulse Rate [ From Monitor] Pulse Rate [ Right Dorsalis Pedis] Respiratory 15 22 Rate Blood Pressure 128/85 123/81 O2 Sat by Pulse 100 100 98 Oximetry 12/28/18 12/28/18 12/28/18 10:16 10:30 10:46 Temperature Pulse Rate 82 85 79 Pulse Rate [ From Monitor] Pulse Rate [ Right Dorsalis Pedis] Respiratory 13 18 14 Rate Blood Pressure 123/81 123/81 123/81 O2 Sat by Pulse 100 100 100 Oximetry 12/28/18 11:00 Temperature Pulse Rate 104 H Pulse Rate [ From Monitor] Pulse Rate [ Right Dorsalis Pedis] Respiratory 18 Rate Blood Pressure 123/81 O2 Sat by Pulse 99 Oximetry Constitutional: alert, appears uncomfortable, other (elderly looking AAF, normocephalic with mildly increased resp effort at rest) Eyes: non-icteric ENT: oropharynx moist, oropharyngeal exudate pre Neck: supple, no JVD Effort: mildly labored Ascultation: Right: rales (base), Bilateral: diminished breath sounds (base) Percussion: Bilateral: not dull Cardiovascular: regular rate and rhythm Gastrointestinal: normoactive bowel sounds, soft, non-tender, non-distended Extremities: no cyanosis, no edema, pulses normal, no ischemia or petechiae Neurologic: non-focal exam (grossly), pupils equal and round, CN II-XII normal, other (insonsistently following prompt's) Psychiatric: anxious CBC and BMP: 12/29/18 05:10 12/29/18 00:49 ABG, PT/INR, D-dimer: PT/INR, D-dimer PT 15.6 Sec. (12.2-14.9) H 12/27/18 10:37 INR 1.27 (0.87-1.13) H 12/27/18 10:37 Abnormal lab findings: Abnormal Labs 12/26/18 12/26/18 12/26/18 22:44 22:44 22:44 WBC 20.5 H RBC RDW Seg Neuts % (Manual) 95.0 H Lymphocytes % (Manual) 4.0 L Seg Neutrophils # Man 19.5 H Lymphocytes # (Manual) 0.8 L PT 15.5 H INR 1.26 H APTT 41.0 H Heparin Anti-Xa Level Sodium Potassium 3.0 L BUN 58 H Creatinine 2.0 H Glucose 120 H POC Glucose Lactic Acid Calcium 11.3 H Direct Bilirubin AST Total Creatine Kinase Troponin T NT-Pro-B Natriuret Pep 1809 H Albumin Triglycerides LDL Cholesterol Direct HDL Cholesterol 12/26/18 12/26/18 12/26/18 22:44 22:44 22:44 WBC RBC RDW Seg Neuts % (Manual) Lymphocytes % (Manual) Seg Neutrophils # Man Lymphocytes # (Manual) PT INR APTT Heparin Anti-Xa Level Sodium Potassium BUN Creatinine Glucose POC Glucose Lactic Acid 2.30 H* Calcium 11.1 H Direct Bilirubin AST Total Creatine Kinase Troponin T 0.037 H NT-Pro-B Natriuret Pep Albumin Triglycerides 201 H LDL Cholesterol Direct 46 L HDL Cholesterol 31 L 12/26/18 12/26/18 12/27/18 23:00 23:50 00:22 WBC RBC RDW Seg Neuts % (Manual) Lymphocytes % (Manual) Seg Neutrophils # Man Lymphocytes # (Manual) PT INR APTT Heparin Anti-Xa Level Sodium 147 H Potassium 2.9 L* BUN 58 H Creatinine 2.1 H Glucose 123 H POC Glucose Lactic Acid 2.40 H* Calcium 10.6 H Direct Bilirubin 0.4 H AST 109 H Total Creatine Kinase Troponin T NT-Pro-B Natriuret Pep Albumin 3.4 L Triglycerides LDL Cholesterol Direct HDL Cholesterol 12/27/18 12/27/18 12/27/18 03:55 03:55 09:26 WBC 16.7 H RBC RDW Seg Neuts % (Manual) 95.0 H Lymphocytes % (Manual) 3.0 L Seg Neutrophils # Man 15.9 H Lymphocytes # (Manual) 0.5 L PT INR APTT Heparin Anti-Xa Level Sodium 147 H Potassium 3.0 L BUN 53 H Creatinine 1.8 H Glucose POC Glucose Lactic Acid Calcium Direct Bilirubin AST Total Creatine Kinase 248 H 233 H Troponin T NT-Pro-B Natriuret Pep Albumin Triglycerides LDL Cholesterol Direct HDL Cholesterol 12/27/18 12/27/18 12/27/18 10:37 16:16 18:28 WBC RBC RDW Seg Neuts % (Manual) Lymphocytes % (Manual) Seg Neutrophils # Man Lymphocytes # (Manual) PT 15.6 H INR 1.27 H APTT Heparin Anti-Xa Level 0.81 H Sodium Potassium BUN Creatinine Glucose POC Glucose 42 L Lactic Acid Calcium Direct Bilirubin AST Total Creatine Kinase Troponin T NT-Pro-B Natriuret Pep Albumin Triglycerides LDL Cholesterol Direct HDL Cholesterol 12/27/18 12/27/18 12/27/18 18:30 19:34 22:42 WBC RBC RDW Seg Neuts % (Manual) Lymphocytes % (Manual) Seg Neutrophils # Man Lymphocytes # (Manual) PT INR APTT Heparin Anti-Xa Level 0.71 H Sodium Potassium BUN Creatinine Glucose POC Glucose 54 L 119 H Lactic Acid Calcium Direct Bilirubin AST Total Creatine Kinase Troponin T NT-Pro-B Natriuret Pep Albumin Triglycerides LDL Cholesterol Direct HDL Cholesterol 12/27/18 12/28/18 23:34 10:30 WBC RBC 3.64 L RDW 15.3 H Seg Neuts % (Manual) Lymphocytes % (Manual) Seg Neutrophils # Man Lymphocytes # (Manual) PT INR APTT Heparin Anti-Xa Level Sodium Potassium BUN Creatinine Glucose POC Glucose 60 L Lactic Acid Calcium Direct Bilirubin AST Total Creatine Kinase Troponin T NT-Pro-B Natriuret Pep Albumin Triglycerides LDL Cholesterol Direct HDL Cholesterol Chest x-ray: image reviewed (RLL infiltrate) Allied health notes reviewed: nursing
[2018-12-28 12:05] LABS: Calcium 9.8 mg/dL (8.4-10.2)
[2018-12-28] MEDS ORDERED: ALBUTEROL 2.5 MG/3 ML NEBU IH PRN (12:11)
[2018-12-28] MEDS: FAMOTIDINE 20 MG TAB PO SCH (13:00)
[2018-12-28] MEDS ORDERED: LIPASE 10,500/PROTEASE 25,000/AMYLASE 43,750 (UNITS) DR CAP FEEDTUBE PRN (13:53)
[2018-12-28] MEDS ORDERED: SIMPLE SYRUP 15 ML FEEDTUBE PRN ×2 (13:53)
[2018-12-28] MEDS ORDERED: SODIUM BICARBONATE 325 MG TAB FEEDTUBE PRN (13:53)
[2018-12-28] MEDS: HEPARIN/ 0.45% NACL DRIP 25,000 UNIT/500 ML BAG IV SCH (15:35)
--- NOTE | 2018-12-28 16:59 | Progress Note ---
Assessment and Plan RLL pneumonia, possible aspiration - No current clinical evidence of respiratory compromise. - cont abx, nebs as needed. ? Sepsis / recent UTI /aspiration PNA - presented with Leukocytosis. T Max 104.9 thus far. - cont abx, follow cx Paroxysmal atrial fibrillation with RVR - New diagnosis. Likely precipitated by acute infection/sepsis. - Currently in SR, Off amio gtt. Cont PO lopressor and titrate as tolerated. - Cont heparin gtt. Pt's granddaughter reports that pt does fall at times and forgets to use her walker. She will discuss initiation of intermodal truck driver AC with family members as pt's fall risk may outweigh the benefits of jail systemic AC. - Echo reviewed - EF 50-55%, abnormal diastolic function. - Thyroid profile WNL. Hypokalemia / Hypernatremia - Replete lytes as needed. F/u BMP. cont iv fluid ROSEMARIE - cont iv fluid, F/u BMP Hypertension, Stable Dementia - supportive care, Pt initiated on tube feeding as unable to complete swallow evaluation due to confusion. Advanced age with debility - PT eval when medically more stable Brief History: 88 -year-old woman with a history of hypertension, diabetes, dementia was brought to the emergency room because for the last 2 weeks she has become weak decrease oral intake and less responsive per the daughter. Subjective Date of service: 12/28/18 Principal diagnosis: Sepsis; RLL PNA; Acute encephalopathy; A-Fib with RVR ROSEMARIE; Hypokalemia Interval history: Patient seen and examined Remained confused - only can answer yes or no denies chest pain, dobhoff on place Discussed with daughter at bedside in SR with intermittent AFib overnight. Off amio gtt. Objective - Exam Narrative Exam: General Apperance: The patient sitting in bed no acute distress HEENT: Normocephalic, atraumatic. Pupils equally round and reactive to light, extraocular movement intact, and no sclericterus. Neck supple, Heart: S1-S2, regular is rhythm Lungs: Records at the right base , breathing comfortable Abdomen: Positive bowel sounds, soft, nontender, nondistended, no organomegaly Extremities: No edema cyanosis clubbing Skin: no rash, nodule, warm and dry Neuro:CN 2 -12 intact, motor/sensory intact, speech is fluent, not oriented - Constitutional Vitals: Vital Signs - 12hr 12/28/18 12/28/18 12/28/18 05:00 05:16 05:30 Temperature Pulse Rate 90 77 77 Pulse Rate [ From Monitor] Pulse Rate [ Right Dorsalis Pedis] Respiratory 12 19 14 Rate Blood Pressure 109/62 109/62 109/62 O2 Sat by Pulse 97 100 99 Oximetry 12/28/18 12/28/18 12/28/18 05:46 06:00 06:16 Temperature Pulse Rate 92 H 79 76 Pulse Rate [ From Monitor] Pulse Rate [ Right Dorsalis Pedis] Respiratory 19 12 18 Rate Blood Pressure 109/62 117/60 109/62 O2 Sat by Pulse 99 99 100 Oximetry 12/28/18 12/28/18 12/28/18 06:30 06:46 07:00 Temperature Pulse Rate 83 78 77 Pulse Rate [ From Monitor] Pulse Rate [ Right Dorsalis Pedis] Respiratory 24 18 15 Rate Blood Pressure 109/62 117/60 126/62 O2 Sat by Pulse 99 100 98 Oximetry 12/28/18 12/28/18 12/28/18 07:16 07:30 07:46 Temperature Pulse Rate 78 88 86 Pulse Rate [ From Monitor] Pulse Rate [ Right Dorsalis Pedis] Respiratory 23 15 16 Rate Blood Pressure 126/62 126/62 126/62 O2 Sat by Pulse 100 100 100 Oximetry 12/28/18 12/28/18 12/28/18 08:00 08:16 08:30 Temperature 96.6 F L Pulse Rate 101 H 81 85 Pulse Rate [ 89 From Monitor] Pulse Rate [ 89 Right Dorsalis Pedis] Respiratory 12 14 20 Rate Blood Pressure 111/71 128/60 128/60 O2 Sat by Pulse 99 99 99 Oximetry 12/28/18 12/28/18 12/28/18 08:46 09:00 09:16 Temperature Pulse Rate 96 H 104 H 78 Pulse Rate [ From Monitor] Pulse Rate [ Right Dorsalis Pedis] Respiratory 20 15 12 Rate Blood Pressure 128/60 128/60 O2 Sat by Pulse 98 98 99 Oximetry 12/28/18 12/28/18 12/28/18 09:30 09:34 09:46 Temperature Pulse Rate 87 80 Pulse Rate [ From Monitor] Pulse Rate [ Right Dorsalis Pedis] Respiratory 18 15 Rate Blood Pressure 128/60 128/85 O2 Sat by Pulse 100 100 100 Oximetry 12/28/18 12/28/18 12/28/18 10:00 10:16 10:30 Temperature Pulse Rate 77 82 85 Pulse Rate [ From Monitor] Pulse Rate [ Right Dorsalis Pedis] Respiratory 22 13 18 Rate Blood Pressure 123/81 123/81 123/81 O2 Sat by Pulse 98 100 100 Oximetry 12/28/18 12/28/18 12/28/18 10:46 11:00 11:16 Temperature Pulse Rate 79 104 H 83 Pulse Rate [ From Monitor] Pulse Rate [ Right Dorsalis Pedis] Respiratory 14 18 13 Rate Blood Pressure 123/81 123/81 111/71 O2 Sat by Pulse 100 99 100 Oximetry 12/28/18 12/28/18 12/28/18 11:30 11:46 12:00 Temperature 98.9 F Pulse Rate 107 H 96 H 88 Pulse Rate [ 81 From Monitor] Pulse Rate [ 81 Right Dorsalis Pedis] Respiratory 20 19 15 Rate Blood Pressure 111/71 111/71 111/71 O2 Sat by Pulse 98 94 99 Oximetry 12/28/18 12/28/18 12/28/18 12:16 12:30 12:46 Temperature Pulse Rate 99 H 95 H 87 Pulse Rate [ From Monitor] Pulse Rate [ Right Dorsalis Pedis] Respiratory 13 11 L 13 Rate Blood Pressure 122/77 122/77 122/77 O2 Sat by Pulse 99 99 99 Oximetry 12/28/18 12/28/18 12/28/18 13:00 13:16 13:30 Temperature Pulse Rate 77 84 70 Pulse Rate [ From Monitor] Pulse Rate [ Right Dorsalis Pedis] Respiratory 22 14 17 Rate Blood Pressure 113/74 113/74 113/74 O2 Sat by Pulse 98 99 100 Oximetry 12/28/18 12/28/18 12/28/18 13:33 13:46 14:00 Temperature Pulse Rate 65 76 68 Pulse Rate [ From Monitor] Pulse Rate [ Right Dorsalis Pedis] Respiratory 15 16 Rate Blood Pressure 113/74 113/74 110/71 O2 Sat by Pulse 99 96 Oximetry 12/28/18 12/28/18 12/28/18 14:16 14:30 14:46 Temperature Pulse Rate 67 67 62 Pulse Rate [ From Monitor] Pulse Rate [ Right Dorsalis Pedis] Respiratory 13 34 H 14 Rate Blood Pressure 110/71 110/71 110/71 O2 Sat by Pulse 95 100 99 Oximetry 12/28/18 12/28/1819 15:00 15:16 15:30 Temperature Pulse Rate 62 60 Pulse Rate [ From Monitor] Pulse Rate [ Right Dorsalis Pedis] Respiratory 15 17 Rate Blood Pressure 114/63 114/63 114/63 O2 Sat by Pulse 96 99 99 Oximetry 12/28/18 12/28/18 16:00 16:07 Temperature 98.9 F 98.1 F Pulse Rate 81 Pulse Rate [ 80 From Monitor] Pulse Rate [ 80 Right Dorsalis Pedis] Respiratory 12 18 Rate Blood Pressure 127/102 O2 Sat by Pulse 100 Oximetry - Labs CBC & Chem 7: 12/28/18 10:30 12/28/18 10:30 Labs: Abnormal lab results 12/27/18 12/27/18 12/27/18 Range/Units 18:28 18:30 19:34 RBC (3.65-5.03) M/mm3 RDW (13.2-15.2) % Heparin Anti-Xa Level (0.3-0.7) U.I./ml Carbon Dioxide (22-30) mmol/L BUN (7-17) mg/dL Creatinine (0.7-1.2) mg/dL POC Glucose 42 L 54 L 119 H (70-105) 12/27/18 12/27/18 12/28/18 Range/Units 22:42 23:34 10:30 RBC 3.64 L (3.65-5.03) M/mm3 RDW 15.3 H (13.2-15.2) % Heparin Anti-Xa Level 0.71 H (0.3-0.7) U.I./ml Carbon Dioxide (22-30) mmol/L BUN (7-17) mg/dL Creatinine (0.7-1.2) mg/dL POC Glucose 60 L (70-105) 12/28/18 Range/Units 10:30 RBC (3.65-5.03) M/mm3 RDW (13.2-15.2) % Heparin Anti-Xa Level (0.3-0.7) U.I./ml Carbon Dioxide 20 L (22-30) mmol/L BUN 34 H (7-17) mg/dL Creatinine 1.4 H (0.7-1.2) mg/dL POC Glucose (70-105)
[2018-12-29 01:45] LABS: Calcium 10.3 mg/dL (8.4-10.2)
[2018-12-29] MEDS: D5W/0.45% NACL 1,000 ML IV SCH ×2 (03:33→20:41)
[2018-12-29] MEDS ORDERED: POTASSIUM CHLORIDE 20 MEQ PACKET FEEDTUBE ONE (03:35)
[2018-12-29 06:06] LABS: Hematocrit 32.2 % (30.3-42.9); Hemoglobin 10.5 gm/dl (10.1-14.3)
[2018-12-29] MEDS: traMADol 50 MG TAB PO SCH ×3 (08:46→20:40)
[2018-12-29] MEDS: METOPROLOL TARTRATE 25 MG TAB PO SCH ×3 (08:47→20:40)
[2018-12-29] MEDS ORDERED: POTASSIUM CHLORIDE ER 20 MEQ TAB PO NR (09:05)
--- NOTE | 2018-12-29 09:10 | Progress Note ---
Assessment and Plan Assessment and plan: --Severe Hypokalemia: replete with oral and IV Kcl, Check mag, rpt electrolytes after 6 hrs --Hypomagnessemia: Mag sulf IV --RLL pneumonia, possible aspiration No current clinical evidence of respiratory compromise. cont abx, nebs as needed.f/u cultures --Possible Sepsis / recent UTI /aspiration PNA presented with Leukocytosis. T Max 104.9 thus far. cont abx, follow cx --Paroxysmal atrial fibrillation with RVR : New onset,Currently in SR, Off amio gtt. Cont PO lopressor and titrate as tolerated. Cont heparin gtt. Pt's granddaughter reports that pt does fall at times and forgets to use her walker. She will discuss initiation of intermission coordinator AC with family members as pt's fall risk may outweigh the benefits of group home systemic AC.,cardiology following Echo reviewed - EF 50-55%, abnormal diastolic function. Thyroid profile WNL. --ROSEMARIE : vasomotor nephropathy, Renal function improving, cont iv fluid, F/u BMP --Hypertension: Stable --Dementia supportive care, Pt initiated on tube feeding as unable to complete swallow evaluation due to confusion. F/U speech/swallow evaln --Advanced age with debility PT eval when medically more stable --DVT prophylaxis:Heparin drip. Plan of care reviwed with the daughter at the bed side History Interval history: Patient seen and examined,medical records reviewed. Patient has no new complaints. Alert and awake,confused Daughter at the bed side Hospitalist Physical - Constitutional Vitals: Temp Pulse Resp BP Pulse Ox 98.9 F 68 18 112/68 94 12/29/18 04:28 12/29/18 04:28 12/29/18 04:28 12/29/18 04:28 12/29/18 04:28 General appearance: Present: no acute distress, well-nourished, other (confused) - EENT Eyes: Present: PERRL, EOM intact - Neck Neck: Present: supple, normal ROM - Respiratory Respiratory effort: normal Respiratory: bilateral: diminished, negative: rales, rhonchi, wheezing - Cardiovascular Rhythm: regular Heart Sounds: Present: S1 & S2 - Extremities Extremities: no ischemia, No edema - Abdominal General gastrointestinal: soft, non-tender, non-distended, normal bowel sounds - Integumentary Integumentary: Present: clear, warm - Psychiatric Psychiatric: cooperative, other (confused) - Neurologic Neurologic: moves all extremities Results - Labs CBC & Chem 7: 12/29/18 05:10 12/29/18 14:28 Labs: Laboratory Last Values WBC 8.7 K/mm3 (4.5-11.0) 12/28/18 10:30 RBC 3.64 M/mm3 (3.65-5.03) L 12/28/18 10:30 Hgb 10.5 gm/dl (10.1-14.3) 12/29/18 05:10 Hct 32.2 % (30.3-42.9) 12/29/18 05:10 MCV 89 fl (79-97) 12/28/18 10:30 MCH 29 pg (28-32) 12/28/18 10:30 MCHC 33 % (30-34) 12/28/18 10:30 RDW 15.3 % (13.2-15.2) H 12/28/18 10:30 Plt Count 138 K/mm3 (140-440) L 12/29/18 05:10 Add Manual Diff Complete 12/27/18 03:55 Total Counted 100 12/27/18 03:55 Seg Neutrophils % Hotel Engineer 12/27/18 03:55 Seg Neuts % (Manual) 95.0 % (40.0-70.0) H 12/27/18 03:55 Band Neutrophils % 0 % 12/27/18 03:55 Lymphocytes % (Manual) 3.0 % (13.4-35.0) L 12/27/18 03:55 Reactive Lymphs % (Man) 0 % 12/27/18 03:55 Monocytes % (Manual) 2.0 % (0.0-7.3) 12/27/18 03:55 Eosinophils % (Manual) 0 % (0.0-4.3) 12/27/18 03:55 Basophils % (Manual) 0 % (0.0-1.8) 12/27/18 03:55 Metamyelocytes % 0 % 12/27/18 03:55 Myelocytes % 0 % 12/27/18 03:55 Promyelocytes % 0 % 12/27/18 03:55 Blast Cells % 0 % 12/27/18 03:55 Nucleated RBC % Not Reportable 12/27/18 03:55 Seg Neutrophils # Man 15.9 K/mm3 (1.8-7.7) H 12/27/18 03:55 Band Neutrophils # 0.0 K/mm3 12/27/18 03:55 Lymphocytes # (Manual) 0.5 K/mm3 (1.2-5.4) L 12/27/18 03:55 Abs React Lymphs (Man) 0.0 K/mm3 12/27/18 03:55 Monocytes # (Manual) 0.3 K/mm3 (0.0-0.8) 12/27/18 03:55 Eosinophils # (Manual) 0.0 K/mm3 (0.0-0.4) 12/27/18 03:55 Basophils # (Manual) 0.0 K/mm3 (0.0-0.1) 12/27/18 03:55 Metamyelocytes # 0.0 K/mm3 12/27/18 03:55 Myelocytes # 0.0 K/mm3 12/27/18 03:55 Promyelocytes # 0.0 K/mm3 12/27/18 03:55 Blast Cells # 0.0 K/mm3 12/27/18 03:55 WBC Morphology Not Reportable 12/27/18 03:55 Hypersegmented Neuts Not Reportable 12/27/18 03:55 Hyposegmented Neuts Not Reportable 12/27/18 03:55 Hypogranular Neuts Not Reportable 12/27/18 03:55 Smudge Cells Not Reportable 12/27/18 03:55 Toxic Granulation Not Reportable 12/27/18 03:55 Toxic Vacuolation Not Reportable 12/27/18 03:55 Dohle Bodies Not Reportable 12/27/18 03:55 Pelger-Huet Anomaly Not Reportable 12/27/18 03:55 Rossana Rods Not Reportable 12/27/18 03:55 Platelet Estimate Consistent w auto 12/27/18 03:55 Clumped Platelets Not Reportable 12/27/18 03:55 Plt Clumps, EDTA Not Reportable 12/27/18 03:55 Large Platelets 1+ 12/27/18 03:55 Giant Platelets Not Reportable 12/27/18 03:55 Platelet Satelliting Not Reportable 12/27/18 03:55 Plt Morphology Comment Not Reportable 12/27/18 03:55 RBC Morphology Not Reportable 12/27/18 03:55 Dimorphic RBCs Not Reportable 12/27/18 03:55 Polychromasia Not Reportable 12/27/18 03:55 Hypochromasia Not Reportable 12/27/18 03:55 Poikilocytosis Not Reportable 12/27/18 03:55 Anisocytosis Few 12/27/18 03:55 Microcytosis Rare 12/27/18 03:55 Macrocytosis Not Reportable 12/27/18 03:55 Spherocytes Not Reportable 12/27/18 03:55 Pappenheimer Bodies Not Reportable 12/27/18 03:55 Sickle Cells Not Reportable 12/27/18 03:55 Target Cells Not Reportable 12/27/18 03:55 Tear Drop Cells Not Reportable 12/27/18 03:55 Ovalocytes Few 12/27/18 03:55 Helmet Cells Not Reportable 12/27/18 03:55 Fischer-Valeria Bodies Not Reportable 12/27/18 03:55 Dolomite Rings Not Reportable 12/27/18 03:55 Denton Cells Not Reportable 12/27/18 03:55 Bite Cells Not Reportable 12/27/18 03:55 Crenated Cell Not Reportable 12/27/18 03:55 Elliptocytes Rare 12/27/18 03:55 Acanthocytes (Spur) Not Reportable 12/27/18 03:55 Rouleaux Not Reportable 12/27/18 03:55 Hemoglobin C Crystals Not Reportable 12/27/18 03:55 Schistocytes Not Reportable 12/27/18 03:55 Malaria parasites Not Reportable 12/27/18 03:55 Júnior Bodies Not Reportable 12/27/18 03:55 Hem Pathologist Commnt No 12/27/18 03:55 PT 15.6 Sec. (12.2-14.9) H 12/27/18 10:37 INR 1.27 (0.87-1.13) H 12/27/18 10:37 APTT 32.0 Sec. (24.2-36.6) 12/27/18 10:37 Heparin Anti-Xa Level 0.45 U.I./ml (0.3-0.7) 12/28/18 10:30 Sodium 144 mmol/L (137-145) 12/29/18 00:49 Potassium 2.6 mmol/L (3.6-5.0) L* D 12/29/18 00:49 Chloride 106.6 mmol/L (98-107) 12/29/18 00:49 Carbon Dioxide 25 mmol/L (22-30) 12/29/18 00:49 Anion Gap 15 mmol/L 12/29/18 00:49 BUN 31 mg/dL (7-17) H 12/29/18 00:49 Creatinine 1.3 mg/dL (0.7-1.2) H 12/29/18 00:49 Estimated GFR 47 ml/min 12/29/18 00:49 BUN/Creatinine Ratio 24 % 12/29/18 00:49 Glucose 90 mg/dL (65-100) 12/29/18 00:49 POC Glucose 150 (70-105) H 12/29/18 06:47 Lactic Acid 1.90 mmol/L (0.7-2.0) 12/27/18 02:27 Calcium 10.3 mg/dL (8.4-10.2) H 12/29/18 00:49 Phosphorus 2.50 mg/dL (2.5-4.5) 12/27/18 03:55 Magnesium 2.10 mg/dL (1.7-2.3) 12/27/18 03:55 Total Bilirubin 0.60 mg/dL (0.1-1.2) 12/26/18 23:00 Direct Bilirubin 0.4 mg/dL (0-0.2) H 12/26/18 23:00 Indirect Bilirubin 0.2 mg/dL 12/26/18 23:00 AST 109 units/L (5-40) H 12/26/18 23:00 ALT 35 units/L (7-56) 12/26/18 23:00 Alkaline Phosphatase 84 units/L (35-129) 12/26/18 23:00 Total Creatine Kinase 233 units/L (30-135) H 12/27/18 09:26 CK-MB (CK-2) 2.2 ng/mL (0.0-4.0) 12/27/18 09:26 CK-MB (CK-2) Rel Index 0.9 (0-4) 12/27/18 09:26 Troponin T 0.022 ng/mL (0.00-0.029) 12/27/18 09:26 NT-Pro-B Natriuret Pep 1809 pg/mL (0-900) H 12/26/18 22:44 Total Protein 6.7 g/dL (6.3-8.2) 12/26/18 23:00 Albumin 3.4 g/dL (3.9-5) L 12/26/18 23:00 Albumin/Globulin Ratio 1.0 % 12/26/18 23:00 Triglycerides 201 mg/dL (2-149) H 12/26/18 22:44 Cholesterol 137 mg/dL (50-199) 12/26/18 22:44 LDL Cholesterol Direct 46 mg/dL (50-130) L 12/26/18 22:44 HDL Cholesterol 31 mg/dL (40-59) L 12/26/18 22:44 Cholesterol/HDL Ratio 4.41 % 12/26/18 22:44 TSH 0.391 mlU/mL (0.270-4.200) 12/27/18 10:37 Free T4 0.86 ng/dL (0.76-1.46) 12/27/18 10:37 Active Medications - Current Medications Current Medications: Generic Name Dose Route Start Last Admin Trade Name Freq PRN Reason Stop Dose Admin Acetaminophen 650 mg 12/27/18 03:43 Tylenol TX Q4H PRN Pain MILD(1-3)/Fever >100.5/DUNBAR Albuterol 2.5 mg 12/28/18 12:11 Proventil IH Q6HRT PRN Shortness Of Breath Lipase/Protease/Amylase 1 each 12/27/18 13:47 Pancreaze 10,500 Unit FEEDTUBE PRN PRN For Clogged Feeding Tube Dextrose 50 ml 12/27/18 03:53 12/27/18 23:40 D50w (25gm) Syringe IV 50 ml PRN PRN Administration Hypoglycemia Famotidine 20 mg 12/28/18 13:00 12/28/18 13:00 Pepcid PO 20 mg DAILY ROBERTO Administration Dextrose/Sodium Chloride 1,000 mls @ 75 mls/hr 12/27/18 04:00 12/29/18 03:33 D5/0.45ns IV 75 mls/hr DIRECT ROBERTO Administration Azithromycin 500 mg/ Sodium 250 mls @ 250 mls/hr 12/27/18 11:00 12/28/18 12:00 Chloride IV 12/31/18 10:59 Infused Q24HR ROBERTO Infusion Protocol Ceftriaxone Sodium 2 gm in 100 mls @ 200 mls/hr 12/27/18 11:00 12/28/18 10:30 Rocephin/Ns 2 Gm/100 Ml IV 12/31/18 10:29 Infused Q24HR ROBERTO Infusion Protocol Heparin Sodium/Sodium Chloride 25,000 unit in 500 mls @ 18 mls/hr 12/27/18 1 1:00 12/28/18 15:35 Heparin/ 0.45% Nacl-25,000 Unit/500 Ml IV 800 units/hr TITR ROBERTO 16 mls/hr Administration Protocol 900 UNITS/HR Potassium Chloride 10 meq in 100 mls @ 100 mls/hr 12/29/18 10:00 Kcl 10meq/100ml IV 12/29/18 11:59 Q1H ROBERTO Lidocaine 1 each 12/27/18 12:00 12/28/18 10:00 Lidoderm 5% TD 1 each QDAY ROBERTO Administration Metoprolol Tartrate 25 mg 12/27/18 14:00 12/29/18 08:47 Lopressor PO 25 mg TID ROBERTO Administration Morphine Sulfate 2 mg 12/27/18 11:26 12/27/18 11:54 Morphine IV 2 mg Q3H PRN Administration Pain, Moderate (4-6) Ondansetron HCl 4 mg 12/27/18 03:43 Zofran IV Q4H PRN Nausea And Vomiting Potassium Chloride 40 meq 12/29/18 09:05 K-Dur PO 12/29/18 09:06 ONCE ONE Sertraline HCl 100 mg 12/28/18 10:00 12/28/18 10:00 Zoloft PO 100 mg QDAY ROBERTO Administration Simple Syrup 15 ml 12/27/18 13:47 Simple Syrup FEEDTUBE PRN PRN Hypoglycemia Simple Syrup 30 ml 12/27/18 13:47 Simple Syrup FEEDTUBE PRN PRN Hypoglycemia Sodium Bicarbonate 325 mg 12/27/18 13:47 Sodium Bicarbonate FEEDTUBE PRN PRN For Clogged Feeding Tube Sodium Chloride 10 ml 12/27/18 10:00 12/28/18 22:24 Sodium Chloride Flush Syringe 10 Ml IV Not Given BID ROBERTO Sodium Chloride 10 ml 12/27/18 03:43 Sodium Chloride Flush Syringe 10 Ml IV PRN PRN LINE FLUSH Tramadol HCl 50 mg 12/27/18 20:00 12/29/18 08:46 Ultram PO 50 mg TID ROBERTO Administration Nutrition/Malnutrition Assess - Dietary Evaluation Nutrition/Malnutrition Findings: Nutrition Notes Start: 12/27/18 10:22 Freq: Status: Active Protocol: Document 12/28/18 13:36 KATIE (Rec: 12/28/18 13:53 KATIE [email or web address]) Co-Sign 12/28/18 13:36 KH Nutrition Notes Initial or Follow up Reassessment Current Diagnosis Acute Kidney Injury,Diabetes, Hypertension Other Pertinent Diagnosis Dementia, pneumonia Current Diet Glucerna 1.2 at 10ml/hr Labs/Tests CO2 20 BUN 34 Cr 1.4 Pertinent Medications Dextrose/Na Cl 1,000ml at 75ml /hr Height 5 ft 1 in Weight 61.5 kg [place] Body Weight (kg) 47.72 BMI 25.6 Subjective/Other Information MD consult to increase TF rate Minimum of two criteria No #1 Nutrition Diagnosis Inadequate oral intake Diagnosis Progress(for reassessment Continues documentation) Is patient on ventilator? No Is Patient Ambulatory and/or Out of Bed No REE-([facility]-confined to bed) 1192.464 Kcal/Kg value to use for calculation 22 Approximate Energy Requirements Using 1353 kcal/Kg Calculation Used for Recommendations Kcal/kg Additional Notes Protein needs: 62g-74g/kg (1g- 1.2g/kg) Fluid needs: 1ml/kg Nutrition Intervention Nutrition Support: Glucerna 1.2 at 45ml/hr Water flush 100ml q4hr Kcal 1,296 Protein (gm) 65 Fluid (mL) 869 Goal #1 TF goal rate Goal #2 Meet at least 80% of energy and protein needs Anticipated Discharge Needs: Unable to determine Follow-Up By: 01/01/19 Additional Comments F/U for TF tolerance
--- NOTE | 2018-12-29 10:34 | Progress Note ---
Assessment and Plan Paroxysmal atrial fibrillation with RVR -> CVR New diagnosis. Likely precipitated by acute infection/sepsis. Currently in SR with brief bouts of AFib. Cont PO lopressor and titrate as tolerated. Cont heparin gtt. Pt's daughter reports frequent falls at home, pt forgets to use her walker. She will discuss initiation of nursing home AC with family members as pt's fall risk may outweigh the benefits of nursing home systemic AC. Will continue heparin gtt in the interim. Echo reviewed - EF 50-55%, abnormal diastolic function. Thyroid profile WNL. RBBB Appears chronic when compared to [place] ECGs from 2013. Echo reviewed - EF 50-55%, abnormal diastolic function. RLL pneumonia, possible aspiration No current clinical evidence of respiratory compromise. Management per pulmonary. ? Sepsis / recent UTI Leukocytosis. T Max 104.9 thus far. Abx per primary. Hypokalemia / Hypomag Replete lytes PRN. F/u BMP and Mg in AM. ROSEMARIE Improving. Hypertension Stable Dementia Pt initiated on tube feeding per primary team as she is refusing to eat and unable to complete swallow evaluation due to confusion. Advanced age Cont lopressor and heparin gtt. Pt's daughter will discuss initiation of termite treater AC with family members as pt's fall risk may outweigh the benefits of nursing home systemic AC. The patient has been seen in conjunction with Dr. Stewart who agrees with the assessment and plan of care. Subjective Date of service: 12/29/18 Principal diagnosis: Sepsis; RLL PNA; Acute encephalopathy; A-Fib with RVR ROSEMARIE; Hypokalemia Interval history: pt sitting up at bedside with physical therapy, appears more alert and less agitated today, daughter at bedside. no family at bedside. in SR with brief bouts of AFib overnight. heparin gtt infusing. Objective Last Vital Signs Temp 98.2 F 12/29/18 09:28 Pulse 56 L 12/29/18 09:28 Resp 18 12/29/18 09:28 BP 106/62 12/29/18 09:28 Pulse Ox 95 12/29/18 09:28 - Physical Examination General: No Apparent Distress HEENT: Positive: PERRL Neck: Positive: neck supple, trachea midline Cardiac: Positive: Reg Rate and Rhythm, S1/S2 Lungs: Positive: Decreased Breath Sounds Neuro: Positive: Grossly Intact Abdomen: Negative: Tender Skin: Negative: Rash Musculoskeletal: No Pain Extremities: Absent: edema - Labs and Meds CBC 12/28/18 12/29/18 Range/Units 10:30 05:10 WBC 8.7 (4.5-11.0) K/mm3 RBC 3.64 L (3.65-5.03) M/mm3 Hgb 10.6 10.5 (10.1-14.3) gm/dl Hct 32.4 32.2 (30.3-42.9) % Plt Count 145 138 L (140-440) K/mm3 Comprehensive Metabolic Panel 12/28/18 12/29/18 Range/Units 10:30 00:49 Sodium 145 144 (137-145) mmol/L Potassium 3.7 D 2.6 L* D (3.6-5.0) mmol/L Chloride 106.2 106.6 (98-107) mmol/L Carbon Dioxide 20 L 25 (22-30) mmol/L BUN 34 H 31 H (7-17) mg/dL Creatinine 1.4 H 1.3 H (0.7-1.2) mg/dL Glucose 81 90 (65-100) mg/dL Calcium 9.8 10.3 H (8.4-10.2) mg/dL - Imaging and Cardiology EKG: report reviewed, image reviewed Echo: report reviewed
[2018-12-29] MEDS: cefTRIAXone/NS 2 GM/100 ML 2 GM/100 ML BAG IV SCH (10:48)
[2018-12-29] MEDS: SERTRALINE 100 MG TAB PO SCH (10:49)
[2018-12-29] MEDS: FAMOTIDINE 20 MG TAB PO SCH (10:49)
[2018-12-29] MEDS: AZITHROMYCIN 500 MG in SODIUM CHLORIDE 0.9% 250ML 250 ML IV SCH (10:49)
[2018-12-29] MEDS ORDERED: MAGNESIUM SULFATE 2 GM/50 ML BAG IV ONE (11:00)
--- NOTE | 2018-12-29 11:05 | Progress Note ---
Assessment and Plan Sepsis RLL pneumonia- probably aspiration Acute toxic-metabolic encephalopathy Atrial fibrillation with RVR Leukocytosis ROSEMARIE Hypokalemia - continue antibiotics (Rocephin and azithromycin) - continue to follow cultures (NGTD) - While on azithromycin and amiodarone continue to monitor QTC - ST evaluation ongoing - prn albuterol - continue GI prophylaxis with Pepcid - continue enteral feedings and free water flushes - Gentle IV hydration for ROSEMARIE - Avoid nephrotoxins and adjust all medication dosing for GFR and CrCL - VTE prophylaxis (on IV heparin) - Management of Atrial fibrillation per Cards - PT/OT to evaluate and treat - Aspiration precautions, HOB>40 - Replete electrolytes as necessary - Avoid delirium / maintenance of sleep wake cycle - continue pertinent chronic home medications - Falls precautions ... re-evaluate in am & prn Subjective Date of service: 12/29/18 Principal diagnosis: Sepsis; RLL PNA; Acute encephalopathy; A-Fib with RVR ROSEMARIE; Hypokalemia Interval history: Patient is seen today for: Sepsis; RLL pneumonia (probably aspiration); Acute toxic-metabolic encephalopathy; Atrial fibrillation with RVR; Leukocytosis; ROSEMARIE; Hypokalemia Seen and examined at bedside; 24-hour events reviewed; nursing and respiratory care staff consulted; no adverse overnight events reported to me; resting peacefully in bed; remains alert but confused; no emesis or overt aspiration; A- fib is rate controlled Objective Vital Signs - 12hr 12/28/18 12/29/18 12/29/18 23:28 00:00 04:00 Temperature 98 F Pulse Rate 72 60 61 Respiratory 20 Rate Blood Pressure Blood Pressure 121/78 [Left] O2 Sat by Pulse 94 Oximetry 12/29/18 12/29/18 04:28 09:28 Temperature 98.9 F 98.2 F Pulse Rate 68 56 L Respiratory 18 18 Rate Blood Pressure 106/62 Blood Pressure 112/68 [Left] O2 Sat by Pulse 94 95 Oximetry Constitutional: alert, appears uncomfortable, other (elderly looking AAF, normocephalic with mildly increased resp effort at rest) Eyes: non-icteric ENT: oropharynx moist, oropharyngeal exudate pre Neck: supple, no JVD Effort: mildly labored Ascultation: Right: rales (base), Bilateral: diminished breath sounds (base) Percussion: Bilateral: not dull Cardiovascular: regular rate and rhythm Gastrointestinal: normoactive bowel sounds, soft, non-tender, non-distended Extremities: no cyanosis, no edema, pulses normal, no ischemia or petechiae Neurologic: non-focal exam (grossly), pupils equal and round, CN II-XII normal, other (insonsistently following prompt's) Psychiatric: anxious, other CBC and BMP: 12/29/18 05:10 12/30/18 03:35 ABG, PT/INR, D-dimer: PT/INR, D-dimer PT 15.6 Sec. (12.2-14.9) H 12/27/18 10:37 INR 1.27 (0.87-1.13) H 12/27/18 10:37 Abnormal lab findings: Abnormal Labs 12/26/18 12/26/18 12/26/18 22:44 22:44 22:44 WBC 20.5 H RBC RDW Plt Count Seg Neuts % (Manual) 95.0 H Lymphocytes % (Manual) 4.0 L Seg Neutrophils # Man 19.5 H Lymphocytes # (Manual) 0.8 L PT 15.5 H INR 1.26 H APTT 41.0 H Heparin Anti-Xa Level Sodium Potassium 3.0 L Carbon Dioxide BUN 58 H Creatinine 2.0 H Glucose 120 H POC Glucose Lactic Acid Calcium 11.3 H Magnesium Direct Bilirubin AST Total Creatine Kinase Troponin T NT-Pro-B Natriuret Pep 1809 H Albumin Triglycerides LDL Cholesterol Direct HDL Cholesterol 12/26/18 12/26/18 12/26/18 22:44 22:44 22:44 WBC RBC RDW Plt Count Seg Neuts % (Manual) Lymphocytes % (Manual) Seg Neutrophils # Man Lymphocytes # (Manual) PT INR APTT Heparin Anti-Xa Level Sodium Potassium Carbon Dioxide BUN Creatinine Glucose POC Glucose Lactic Acid 2.30 H* Calcium 11.1 H Magnesium Direct Bilirubin AST Total Creatine Kinase Troponin T 0.037 H NT-Pro-B Natriuret Pep Albumin Triglycerides 201 H LDL Cholesterol Direct 46 L HDL Cholesterol 31 L 12/26/18 12/26/18 12/27/18 23:00 23:50 00:22 WBC RBC RDW Plt Count Seg Neuts % (Manual) Lymphocytes % (Manual) Seg Neutrophils # Man Lymphocytes # (Manual) PT INR APTT Heparin Anti-Xa Level Sodium 147 H Potassium 2.9 L* Carbon Dioxide BUN 58 H Creatinine 2.1 H Glucose 123 H POC Glucose Lactic Acid 2.40 H* Calcium 10.6 H Magnesium Direct Bilirubin 0.4 H AST 109 H Total Creatine Kinase Troponin T NT-Pro-B Natriuret Pep Albumin 3.4 L Triglycerides LDL Cholesterol Direct HDL Cholesterol 12/27/18 12/27/18 12/27/18 03:55 03:55 09:26 WBC 16.7 H RBC RDW Plt Count Seg Neuts % (Manual) 95.0 H Lymphocytes % (Manual) 3.0 L Seg Neutrophils # Man 15.9 H Lymphocytes # (Manual) 0.5 L PT INR APTT Heparin Anti-Xa Level Sodium 147 H Potassium 3.0 L Carbon Dioxide BUN 53 H Creatinine 1.8 H Glucose POC Glucose Lactic Acid Calcium Magnesium Direct Bilirubin AST Total Creatine Kinase 248 H 233 H Troponin T NT-Pro-B Natriuret Pep Albumin Triglycerides LDL Cholesterol Direct HDL Cholesterol 12/27/18 12/27/18 12/27/18 10:37 16:16 18:28 WBC RBC RDW Plt Count Seg Neuts % (Manual) Lymphocytes % (Manual) Seg Neutrophils # Man Lymphocytes # (Manual) PT 15.6 H INR 1.27 H APTT Heparin Anti-Xa Level 0.81 H Sodium Potassium Carbon Dioxide BUN Creatinine Glucose POC Glucose 42 L Lactic Acid Calcium Magnesium Direct Bilirubin AST Total Creatine Kinase Troponin T NT-Pro-B Natriuret Pep Albumin Triglycerides LDL Cholesterol Direct HDL Cholesterol 12/27/18 12/27/18 12/27/18 18:30 19:34 22:42 WBC RBC RDW Plt Count Seg Neuts % (Manual) Lymphocytes % (Manual) Seg Neutrophils # Man Lymphocytes # (Manual) PT INR APTT Heparin Anti-Xa Level 0.71 H Sodium Potassium Carbon Dioxide BUN Creatinine Glucose POC Glucose 54 L 119 H Lactic Acid Calcium Magnesium Direct Bilirubin AST Total Creatine Kinase Troponin T NT-Pro-B Natriuret Pep Albumin Triglycerides LDL Cholesterol Direct HDL Cholesterol 12/27/18 12/28/18 12/28/18 23:34 10:30 10:30 WBC RBC 3.64 L RDW 15.3 H Plt Count Seg Neuts % (Manual) Lymphocytes % (Manual) Seg Neutrophils # Man Lymphocytes # (Manual) PT INR APTT Heparin Anti-Xa Level Sodium Potassium Carbon Dioxide 20 L BUN 34 H Creatinine 1.4 H Glucose POC Glucose 60 L Lactic Acid Calcium Magnesium Direct Bilirubin AST Total Creatine Kinase Troponin T NT-Pro-B Natriuret Pep Albumin Triglycerides LDL Cholesterol Direct HDL Cholesterol 12/29/18 12/29/18 12/29/18 00:49 05:10 05:10 WBC RBC RDW Plt Count 138 L Seg Neuts % (Manual) Lymphocytes % (Manual) Seg Neutrophils # Man Lymphocytes # (Manual) PT INR APTT Heparin Anti-Xa Level Sodium Potassium 2.6 L* D Carbon Dioxide BUN 31 H Creatinine 1.3 H Glucose POC Glucose Lactic Acid Calcium 10.3 H Magnesium 1.60 L Direct Bilirubin AST Total Creatine Kinase Troponin T NT-Pro-B Natriuret Pep Albumin Triglycerides LDL Cholesterol Direct HDL Cholesterol 12/29/18 06:47 WBC RBC RDW Plt Count Seg Neuts % (Manual) Lymphocytes % (Manual) Seg Neutrophils # Man Lymphocytes # (Manual) PT INR APTT Heparin Anti-Xa Level Sodium Potassium Carbon Dioxide BUN Creatinine Glucose POC Glucose 150 H Lactic Acid Calcium Magnesium Direct Bilirubin AST Total Creatine Kinase Troponin T NT-Pro-B Natriuret Pep Albumin Triglycerides LDL Cholesterol Direct HDL Cholesterol Allied health notes reviewed: nursing
[2018-12-29] MEDS: POTASSIUM CHLORIDE 10 MEQ 10 MEQ/100 ML BAG IV SCH ×2 (14:34→19:28)
[2018-12-29] MEDS: MORPHINE 2 MG/1 ML INJ IV PRN (16:41)
[2018-12-29] MEDS: LIDOCAINE 5% 1 EACH PATCH TD SCH (16:51)
[2018-12-29] MEDS: HEPARIN/ 0.45% NACL DRIP 25,000 UNIT/500 ML BAG IV SCH (20:41)
[2018-12-29] MEDS: POTASSIUM CHLORIDE 20 MEQ PACKET FEEDTUBE SCH (20:41)
[2018-12-30 06:15] LABS: Calcium 10.2 mg/dL (8.4-10.2)
[2018-12-30] MEDS: traMADol 50 MG TAB PO SCH ×3 (08:46→21:05)
[2018-12-30] MEDS: METOPROLOL TARTRATE 25 MG TAB PO SCH ×3 (08:48→21:20)
--- NOTE | 2018-12-30 09:01 | Event Note ---
Date: 12/30/[address] pt moaning. nursing states this is not new. vss chest clear cor rrr abd soft potassium 3.4. was 2.9. continue to supplement imp afib converted to sinus rhythm family has decided pt not a good candidate for oral ac due to adv age and fall risk continue current mgt no new card rec at this time no family member present at time of encounter
--- NOTE | 2018-12-30 09:18 | Progress Note ---
Assessment and Plan Assessment and plan: --Dysphagia/metabolic encephalopathy Dobbhoff feeds, follow speech and swallow evaluation If no improvement, patient may need PEG placement --Hypokalemia: replete with oral and IV Kcl, Check mag, rpt electrolytes after 6 hrs --Hypomagnessemia: Mag sulf IV --RLL pneumonia, possible aspiration No current clinical evidence of respiratory compromise. cont abx, nebs as needed.f/u cultures --Possible Sepsis / recent UTI /aspiration PNA presented with Leukocytosis. T Max 104.9 thus far. cont abx, follow cx --Paroxysmal atrial fibrillation with RVR : New onset,Currently in SR, Off amio gtt. Cont PO lopressor and titrate as tolerated. heparin gtt.discontinued, patient not a candidate for chronic anticoagulation Due to advanced age and recurrent falls, cardiology recommended aspirin 162 mg daily Echo reviewed - EF 50-55%, abnormal diastolic function. Thyroid profile WNL. --ROSEMARIE : vasomotor nephropathy, Resolved, avoid nephrotoxins --Hypertension: Stable --Dementia supportive care, Pt initiated on tube feeding as unable to complete swallow evaluation due to confusion. F/U speech/swallow evaln --Advanced age with debility PT eval when medically more stable --DVT prophylaxis:Heparin drip. Plan of care reviwed with the daughter at the bed side History Interval history: Patient seen and examined Medical records revwed No new complain Hospitalist Physical - Constitutional Vitals: Temp Pulse Resp BP Pulse Ox 98.5 F 61 20 131/70 98 12/30/18 08:16 12/30/18 08:48 12/30/18 08:46 12/30/18 08:48 12/30/18 08:16 General appearance: Present: no acute distress, well-nourished, other (confused) - EENT Eyes: Present: PERRL, EOM intact ENT: other (tracheostomy) - Neck Neck: Present: supple, normal ROM - Respiratory Respiratory effort: normal Respiratory: bilateral: diminished, rhonchi, negative: wheezing - Cardiovascular Rhythm: regular Heart Sounds: Present: S1 & S2 - Extremities Extremities: no ischemia, No edema - Abdominal General gastrointestinal: soft, non-tender, non-distended, normal bowel sounds - Integumentary Integumentary: Present: clear, warm - Psychiatric Psychiatric: appropriate mood/affect, cooperative - Neurologic Neurologic: moves all extremities Results - Labs CBC & Chem 7: 12/29/18 05:10 12/30/18 03:35 Labs: Laboratory Last Values WBC 8.7 K/mm3 (4.5-11.0) 12/28/18 10:30 RBC 3.64 M/mm3 (3.65-5.03) L 12/28/18 10:30 Hgb 10.5 gm/dl (10.1-14.3) 12/29/18 05:10 Hct 32.2 % (30.3-42.9) 12/29/18 05:10 MCV 89 fl (79-97) 12/28/18 10:30 MCH 29 pg (28-32) 12/28/18 10:30 MCHC 33 % (30-34) 12/28/18 10:30 RDW 15.3 % (13.2-15.2) H 12/28/18 10:30 Plt Count 138 K/mm3 (140-440) L 12/29/18 05:10 Add Manual Diff Complete 12/27/18 03:55 Total Counted 100 12/27/18 03:55 Seg Neutrophils % Business Intelligence Engineer 12/27/18 03:55 Seg Neuts % (Manual) 95.0 % (40.0-70.0) H 12/27/18 03:55 Band Neutrophils % 0 % 12/27/18 03:55 Lymphocytes % (Manual) 3.0 % (13.4-35.0) L 12/27/18 03:55 Reactive Lymphs % (Man) 0 % 12/27/18 03:55 Monocytes % (Manual) 2.0 % (0.0-7.3) 12/27/18 03:55 Eosinophils % (Manual) 0 % (0.0-4.3) 12/27/18 03:55 Basophils % (Manual) 0 % (0.0-1.8) 12/27/18 03:55 Metamyelocytes % 0 % 12/27/18 03:55 Myelocytes % 0 % 12/27/18 03:55 Promyelocytes % 0 % 12/27/18 03:55 Blast Cells % 0 % 12/27/18 03:55 Nucleated RBC % Not Reportable 12/27/18 03:55 Seg Neutrophils # Man 15.9 K/mm3 (1.8-7.7) H 12/27/18 03:55 Band Neutrophils # 0.0 K/mm3 12/27/18 03:55 Lymphocytes # (Manual) 0.5 K/mm3 (1.2-5.4) L 12/27/18 03:55 Abs React Lymphs (Man) 0.0 K/mm3 12/27/18 03:55 Monocytes # (Manual) 0.3 K/mm3 (0.0-0.8) 12/27/18 03:55 Eosinophils # (Manual) 0.0 K/mm3 (0.0-0.4) 12/27/18 03:55 Basophils # (Manual) 0.0 K/mm3 (0.0-0.1) 12/27/18 03:55 Metamyelocytes # 0.0 K/mm3 12/27/18 03:55 Myelocytes # 0.0 K/mm3 12/27/18 03:55 Promyelocytes # 0.0 K/mm3 12/27/18 03:55 Blast Cells # 0.0 K/mm3 12/27/18 03:55 WBC Morphology Not Reportable 12/27/18 03:55 Hypersegmented Neuts Not Reportable 12/27/18 03:55 Hyposegmented Neuts Not Reportable 12/27/18 03:55 Hypogranular Neuts Not Reportable 12/27/18 03:55 Smudge Cells Not Reportable 12/27/18 03:55 Toxic Granulation Not Reportable 12/27/18 03:55 Toxic Vacuolation Not Reportable 12/27/18 03:55 Dohle Bodies Not Reportable 12/27/18 03:55 Pelger-Huet Anomaly Not Reportable 12/27/18 03:55 Rossana Rods Not Reportable 12/27/18 03:55 Platelet Estimate Consistent w auto 12/27/18 03:55 Clumped Platelets Not Reportable 12/27/18 03:55 Plt Clumps, EDTA Not Reportable 12/27/18 03:55 Large Platelets 1+ 12/27/18 03:55 Giant Platelets Not Reportable 12/27/18 03:55 Platelet Satelliting Not Reportable 12/27/18 03:55 Plt Morphology Comment Not Reportable 12/27/18 03:55 RBC Morphology Not Reportable 12/27/18 03:55 Dimorphic RBCs Not Reportable 12/27/18 03:55 Polychromasia Not Reportable 12/27/18 03:55 Hypochromasia Not Reportable 12/27/18 03:55 Poikilocytosis Not Reportable 12/27/18 03:55 Anisocytosis Few 12/27/18 03:55 Microcytosis Rare 12/27/18 03:55 Macrocytosis Not Reportable 12/27/18 03:55 Spherocytes Not Reportable 12/27/18 03:55 Pappenheimer Bodies Not Reportable 12/27/18 03:55 Sickle Cells Not Reportable 12/27/18 03:55 Target Cells Not Reportable 12/27/18 03:55 Tear Drop Cells Not Reportable 12/27/18 03:55 Ovalocytes Few 12/27/18 03:55 Helmet Cells Not Reportable 12/27/18 03:55 Fischer-Crockett Bodies Not Reportable 12/27/18 03:55 Pitkin Rings Not Reportable 12/27/18 03:55 Ellsworth Cells Not Reportable 12/27/18 03:55 Bite Cells Not Reportable 12/27/18 03:55 Crenated Cell Not Reportable 12/27/18 03:55 Elliptocytes Rare 12/27/18 03:55 Acanthocytes (Spur) Not Reportable 12/27/18 03:55 Rouleaux Not Reportable 12/27/18 03:55 Hemoglobin C Crystals Not Reportable 12/27/18 03:55 Schistocytes Not Reportable 12/27/18 03:55 Malaria parasites Not Reportable 12/27/18 03:55 Júnior Bodies Not Reportable 12/27/18 03:55 Hem Pathologist Commnt No 12/27/18 03:55 PT 15.6 Sec. (12.2-14.9) H 12/27/18 10:37 INR 1.27 (0.87-1.13) H 12/27/18 10:37 APTT 32.0 Sec. (24.2-36.6) 12/27/18 10:37 Heparin Anti-Xa Level 0.32 U.I./ml (0.3-0.7) 12/29/18 19:55 Sodium 141 mmol/L (137-145) 12/30/18 03:35 Potassium 3.4 mmol/L (3.6-5.0) L 12/30/18 03:35 Chloride 103.8 mmol/L (98-107) 12/30/18 03:35 Carbon Dioxide 23 mmol/L (22-30) 12/30/18 03:35 Anion Gap 18 mmol/L 12/30/18 03:35 BUN 25 mg/dL (7-17) H 12/30/18 03:35 Creatinine 1.2 mg/dL (0.7-1.2) 12/30/18 03:35 Estimated GFR 51 ml/min 12/30/18 03:35 BUN/Creatinine Ratio 21 % 12/30/18 03:35 Glucose 131 mg/dL (65-100) H 12/30/18 03:35 POC Glucose 157 (70-105) H 12/30/18 05:50 Lactic Acid 1.90 mmol/L (0.7-2.0) 12/27/18 02:27 Calcium 10.2 mg/dL (8.4-10.2) 12/30/18 03:35 Phosphorus 2.50 mg/dL (2.5-4.5) 12/27/18 03:55 Magnesium 2.00 mg/dL (1.7-2.3) 12/30/18 03:35 Total Bilirubin 0.60 mg/dL (0.1-1.2) 12/26/18 23:00 Direct Bilirubin 0.4 mg/dL (0-0.2) H 12/26/18 23:00 Indirect Bilirubin 0.2 mg/dL 12/26/18 23:00 AST 109 units/L (5-40) H 12/26/18 23:00 ALT 35 units/L (7-56) 12/26/18 23:00 Alkaline Phosphatase 84 units/L (35-129) 12/26/18 23:00 Total Creatine Kinase 233 units/L (30-135) H 12/27/18 09:26 CK-MB (CK-2) 2.2 ng/mL (0.0-4.0) 12/27/18 09:26 CK-MB (CK-2) Rel Index 0.9 (0-4) 12/27/18 09:26 Troponin T 0.022 ng/mL (0.00-0.029) 12/27/18 09:26 NT-Pro-B Natriuret Pep 1809 pg/mL (0-900) H 12/26/18 22:44 Total Protein 6.7 g/dL (6.3-8.2) 12/26/18 23:00 Albumin 3.4 g/dL (3.9-5) L 12/26/18 23:00 Albumin/Globulin Ratio 1.0 % 12/26/18 23:00 Triglycerides 201 mg/dL (2-149) H 12/26/18 22:44 Cholesterol 137 mg/dL (50-199) 12/26/18 22:44 LDL Cholesterol Direct 46 mg/dL (50-130) L 12/26/18 22:44 HDL Cholesterol 31 mg/dL (40-59) L 12/26/18 22:44 Cholesterol/HDL Ratio 4.41 % 12/26/18 22:44 TSH 0.391 mlU/mL (0.270-4.200) 12/27/18 10:37 Free T4 0.86 ng/dL (0.76-1.46) 12/27/18 10:37 Active Medications - Current Medications Current Medications: Generic Name Dose Route Start Last Admin Trade Name Freq PRN Reason Stop Dose Admin Acetaminophen 650 mg 12/27/18 03:43 Tylenol UT Q4H PRN Pain MILD(1-3)/Fever >100.5/DUNBAR Albuterol 2.5 mg 12/28/18 12:11 Proventil IH Q6HRT PRN Shortness Of Breath Lipase/Protease/Amylase 1 each 12/27/18 13:47 Pancreaze 10,500 Unit FEEDTUBE PRN PRN For Clogged Feeding Tube Aspirin 162 mg 12/30/18 10:00 Baby Aspirin PO QDAY ROBERTO Dextrose 50 ml 12/27/18 03:53 12/27/18 23:40 D50w (25gm) Syringe IV 50 ml PRN PRN Administration Hypoglycemia Famotidine 20 mg 12/28/18 13:00 12/29/18 10:49 Pepcid PO 20 mg DAILY ROBERTO Administration Dextrose/Sodium Chloride 1,000 mls @ 75 mls/hr 12/27/18 04:00 12/29/18 20:41 D5/0.45ns IV 75 mls/hr DIRECT ROBERTO Administration Azithromycin 500 mg/ Sodium 250 mls @ 250 mls/hr 12/27/18 11:00 12/29/18 10:49 Chloride IV 12/31/18 10:59 250 mls/hr Q24HR ROBERTO Administration Protocol Ceftriaxone Sodium 2 gm in 100 mls @ 200 mls/hr 12/27/18 11:00 12/29/18 10:48 Rocephin/Ns 2 Gm/100 Ml IV 12/31/18 10:29 200 mls/hr Q24HR ROBERTO Administration Protocol Lidocaine 1 each 12/27/18 12:00 12/29/18 16:51 Lidoderm 5% TD 1 each QDAY ROBERTO Administration Metoprolol Tartrate 25 mg 12/27/18 14:00 12/30/18 08:48 Lopressor PO 25 mg TID ROBERTO Administration Morphine Sulfate 2 mg 12/27/18 11:26 12/29/18 16:41 Morphine IV 2 mg Q3H PRN Administration Pain, Moderate (4-6) Ondansetron HCl 4 mg 12/27/18 03:43 Zofran IV Q4H PRN Nausea And Vomiting Potassium Chloride 40 meq 12/29/18 18:00 12/29/18 20:41 Potassium Chloride FEEDTUBE 40 meq QDAY ROBERTO Administration Potassium Chloride 40 meq 12/30/18 09:12 Potassium Chloride FEEDTUBE 12/30/18 09:13 ONCE ONE Sertraline HCl 100 mg 12/28/18 10:00 12/29/18 10:49 Zoloft PO 100 mg QDAY ROBERTO Administration Simple Syrup 15 ml 12/27/18 13:47 Simple Syrup FEEDTUBE PRN PRN Hypoglycemia Simple Syrup 30 ml 12/27/18 13:47 Simple Syrup FEEDTUBE PRN PRN Hypoglycemia Sodium Bicarbonate 325 mg 12/27/18 13:47 Sodium Bicarbonate FEEDTUBE PRN PRN For Clogged Feeding Tube Sodium Chloride 10 ml 12/27/18 10:00 12/30/18 00:14 Sodium Chloride Flush Syringe 10 Ml IV Not Given BID ROBERTO Sodium Chloride 10 ml 12/27/18 03:43 Sodium Chloride Flush Syringe 10 Ml IV PRN PRN LINE FLUSH Tramadol HCl 50 mg 12/27/18 20:00 12/30/18 08:46 Ultram PO 50 mg TID ROBERTO Administration Nutrition/Malnutrition Assess - Dietary Evaluation Nutrition/Malnutrition Findings: Nutrition Notes Start: 10/02/19 10:22 Freq: Status: Active Protocol: Document 12/28/18 13:36 KATIE (Rec: 12/28/18 13:53 KATIE [email or web address]) Co-Sign 12/28/18 13:36 KH Nutrition Notes Initial or Follow up Reassessment Current Diagnosis Acute Kidney Injury,Diabetes, Hypertension Other Pertinent Diagnosis Dementia, pneumonia Current Diet Glucerna 1.2 at 10ml/hr Labs/Tests CO2 20 BUN 34 Cr 1.4 Pertinent Medications Dextrose/Na Cl 1,000ml at 75ml /hr Height 5 ft 1 in Weight 61.5 kg [place] Body Weight (kg) 47.72 BMI 25.6 Subjective/Other Information MD consult to increase TF rate Minimum of two criteria No #1 Nutrition Diagnosis Inadequate oral intake Diagnosis Progress(for reassessment Continues documentation) Is patient on ventilator? No Is Patient Ambulatory and/or Out of Bed No [facility] 1192.464 Kcal/Kg value to use for calculation 22 Approximate Energy Requirements Using 1353 kcal/Kg Calculation Used for Recommendations Kcal/kg Additional Notes Protein needs: 62g-74g/kg (1g- 1.2g/kg) Fluid needs: 1ml/kg Nutrition Intervention Nutrition Support: Glucerna 1.2 at 45ml/hr Water flush 100ml q4hr Kcal 1,296 Protein (gm) 65 Fluid (mL) 869 Goal #1 TF goal rate Goal #2 Meet at least 80% of energy and protein needs Anticipated Discharge Needs: Unable to determine Follow-Up By: 01/01/19 Additional Comments F/U for TF tolerance
[2018-12-30] MEDS ORDERED: POTASSIUM CHLORIDE 20 MEQ PACKET FEEDTUBE ONE (10:00)
[2018-12-30] MEDS: D5W/0.45% NACL 1,000 ML IV SCH ×2 (10:05→23:03)
[2018-12-30] MEDS: LIDOCAINE 5% 1 EACH PATCH TD SCH (10:11)
[2018-12-30] MEDS: cefTRIAXone/NS 2 GM/100 ML 2 GM/100 ML BAG IV SCH (10:12)
[2018-12-30] MEDS: FAMOTIDINE 20 MG TAB PO SCH (10:13)
[2018-12-30] MEDS: ENOXAPARIN 30 MG/0.3 ML INJ SUB-Q SCH (10:14)
[2018-12-30] MEDS: SERTRALINE 100 MG TAB PO SCH (10:15)
[2018-12-30] MEDS: ASPIRIN 81 MG TAB CHEW PO SCH (10:15)
--- NOTE | 2018-12-30 11:15 | Progress Note ---
Assessment and Plan Patient awake but weak. Patient is on 2 litres O2.O2 saturation 100%. No acute respiratory distress. CT of chest showing right lower lobe infiltrate.Patient is on Zithromax and ceftriaxone. Patient afebrile. Leukocyte count came down. - Patient Problems (1) Right lower lobe pneumonia Current Visit: Yes Status: Acute Plan to address problem: Patient is on Zithromax and Ceftrioxone. (2) Dementia Current Visit: Yes Status: Acute Plan to address problem: Management as per primary care. Subjective Date of service: 12/30/18 Principal diagnosis: Sepsis; RLL PNA; Acute encephalopathy; A-Fib with RVR ROSEMARIE; Hypokalemia Interval history: Patient awake but weak. Patient is on 2 litres O2.O2 saturation 100%. No acute respiratory distress. CT of chest showing right lower lobe infiltrate.Patient is on Zithromax and ceftriaxone. Patient afebrile. Leukocyte count came down. Objective Vital Signs - 12hr 12/29/18 12/30/18 12/30/18 23:41 00:00 04:16 Temperature 98.0 F 98.0 F Pulse Rate 62 Respiratory 18 18 Rate Blood Pressure 121/61 112/68 O2 Sat by Pulse Oximetry 12/30/18 12/30/18 12/30/18 06:33 08:16 08:46 Temperature 98.5 F Pulse Rate 62 61 Respiratory 18 20 Rate Blood Pressure 131/70 O2 Sat by Pulse 98 Oximetry 12/30/18 08:48 Temperature Pulse Rate 61 Respiratory Rate Blood Pressure 131/70 O2 Sat by Pulse Oximetry Constitutional: alert, appears uncomfortable, other (elderly looking AAF, normocephalic with mildly increased resp effort at rest) Eyes: non-icteric ENT: oropharynx moist, oropharyngeal exudate pre Neck: supple, no JVD Effort: mildly labored Ascultation: Right: rhonchi (Right base.), Bilateral: diminished breath sounds (base) Percussion: Bilateral: not dull Cardiovascular: regular rate and rhythm Gastrointestinal: normoactive bowel sounds, soft, non-tender, non-distended Extremities: no cyanosis, no edema, pulses normal, no ischemia or petechiae Neurologic: non-focal exam (grossly), pupils equal and round, CN II-XII normal, other (insonsistently following prompt's) Psychiatric: anxious CBC and BMP: 10/04/19 05:10 12/30/18 03:35 ABG, PT/INR, D-dimer: PT/INR, D-dimer PT 15.6 Sec. (12.2-14.9) H 12/27/18 10:37 INR 1.27 (0.87-1.13) H 12/27/18 10:37 Abnormal lab findings: Abnormal Labs 12/26/18 12/26/18 12/26/18 22:44 22:44 22:44 WBC 20.5 H RBC RDW Plt Count Seg Neuts % (Manual) 95.0 H Lymphocytes % (Manual) 4.0 L Seg Neutrophils # Man 19.5 H Lymphocytes # (Manual) 0.8 L PT 15.5 H INR 1.26 H APTT 41.0 H Heparin Anti-Xa Level Sodium Potassium 3.0 L Carbon Dioxide BUN 58 H Creatinine 2.0 H Glucose 120 H POC Glucose Lactic Acid Calcium 11.3 H Magnesium Direct Bilirubin AST Total Creatine Kinase Troponin T NT-Pro-B Natriuret Pep 1809 H Albumin Triglycerides LDL Cholesterol Direct HDL Cholesterol 12/26/18 12/26/18 12/26/18 22:44 22:44 22:44 WBC RBC RDW Plt Count Seg Neuts % (Manual) Lymphocytes % (Manual) Seg Neutrophils # Man Lymphocytes # (Manual) PT INR APTT Heparin Anti-Xa Level Sodium Potassium Carbon Dioxide BUN Creatinine Glucose POC Glucose Lactic Acid 2.30 H* Calcium 11.1 H Magnesium Direct Bilirubin AST Total Creatine Kinase Troponin T 0.037 H NT-Pro-B Natriuret Pep Albumin Triglycerides 201 H LDL Cholesterol Direct 46 L HDL Cholesterol 31 L 12/26/18 12/26/18 12/27/18 23:00 23:50 00:22 WBC RBC RDW Plt Count Seg Neuts % (Manual) Lymphocytes % (Manual) Seg Neutrophils # Man Lymphocytes # (Manual) PT INR APTT Heparin Anti-Xa Level Sodium 147 H Potassium 2.9 L* Carbon Dioxide BUN 58 H Creatinine 2.1 H Glucose 123 H POC Glucose Lactic Acid 2.40 H* Calcium 10.6 H Magnesium Direct Bilirubin 0.4 H AST 109 H Total Creatine Kinase Troponin T NT-Pro-B Natriuret Pep Albumin 3.4 L Triglycerides LDL Cholesterol Direct HDL Cholesterol 12/27/18 12/27/18 12/27/18 03:55 03:55 09:26 WBC 16.7 H RBC RDW Plt Count Seg Neuts % (Manual) 95.0 H Lymphocytes % (Manual) 3.0 L Seg Neutrophils # Man 15.9 H Lymphocytes # (Manual) 0.5 L PT INR APTT Heparin Anti-Xa Level Sodium 147 H Potassium 3.0 L Carbon Dioxide BUN 53 H Creatinine 1.8 H Glucose POC Glucose Lactic Acid Calcium Magnesium Direct Bilirubin AST Total Creatine Kinase 248 H 233 H Troponin T NT-Pro-B Natriuret Pep Albumin Triglycerides LDL Cholesterol Direct HDL Cholesterol 12/27/18 12/27/18 12/27/18 10:37 16:16 18:28 WBC RBC RDW Plt Count Seg Neuts % (Manual) Lymphocytes % (Manual) Seg Neutrophils # Man Lymphocytes # (Manual) PT 15.6 H INR 1.27 H APTT Heparin Anti-Xa Level 0.81 H Sodium Potassium Carbon Dioxide BUN Creatinine Glucose POC Glucose 42 L Lactic Acid Calcium Magnesium Direct Bilirubin AST Total Creatine Kinase Troponin T NT-Pro-B Natriuret Pep Albumin Triglycerides LDL Cholesterol Direct HDL Cholesterol 12/27/18 12/27/18 12/27/18 18:30 19:34 22:42 WBC RBC RDW Plt Count Seg Neuts % (Manual) Lymphocytes % (Manual) Seg Neutrophils # Man Lymphocytes # (Manual) PT INR APTT Heparin Anti-Xa Level 0.71 H Sodium Potassium Carbon Dioxide BUN Creatinine Glucose POC Glucose 54 L 119 H Lactic Acid Calcium Magnesium Direct Bilirubin AST Total Creatine Kinase Troponin T NT-Pro-B Natriuret Pep Albumin Triglycerides LDL Cholesterol Direct HDL Cholesterol 12/27/18 12/28/18 12/28/18 23:34 10:30 10:30 WBC RBC 3.64 L RDW 15.3 H Plt Count Seg Neuts % (Manual) Lymphocytes % (Manual) Seg Neutrophils # Man Lymphocytes # (Manual) PT INR APTT Heparin Anti-Xa Level Sodium Potassium Carbon Dioxide 20 L BUN 34 H Creatinine 1.4 H Glucose POC Glucose 60 L Lactic Acid Calcium Magnesium Direct Bilirubin AST Total Creatine Kinase Troponin T NT-Pro-B Natriuret Pep Albumin Triglycerides LDL Cholesterol Direct HDL Cholesterol 12/29/18 12/29/18 12/29/18 00:49 05:10 05:10 WBC RBC RDW Plt Count 138 L Seg Neuts % (Manual) Lymphocytes % (Manual) Seg Neutrophils # Man Lymphocytes # (Manual) PT INR APTT Heparin Anti-Xa Level Sodium Potassium 2.6 L* D Carbon Dioxide BUN 31 H Creatinine 1.3 H Glucose POC Glucose Lactic Acid Calcium 10.3 H Magnesium 1.60 L Direct Bilirubin AST Total Creatine Kinase Troponin T NT-Pro-B Natriuret Pep Albumin Triglycerides LDL Cholesterol Direct HDL Cholesterol 12/29/18 12/29/18 12/29/18 06:47 11:26 14:28 WBC RBC RDW Plt Count Seg Neuts % (Manual) Lymphocytes % (Manual) Seg Neutrophils # Man Lymphocytes # (Manual) PT INR APTT Heparin Anti-Xa Level 0.23 L Sodium Potassium 2.9 L* Carbon Dioxide BUN Creatinine Glucose POC Glucose 150 H Lactic Acid Calcium Magnesium Direct Bilirubin AST Total Creatine Kinase Troponin T NT-Pro-B Natriuret Pep Albumin Triglycerides LDL Cholesterol Direct HDL Cholesterol 12/29/18 12/30/18 12/30/18 20:26 00:34 03:35 WBC RBC RDW Plt Count Seg Neuts % (Manual) Lymphocytes % (Manual) Seg Neutrophils # Man Lymphocytes # (Manual) PT INR APTT Heparin Anti-Xa Level Sodium Potassium 3.4 L Carbon Dioxide BUN 25 H Creatinine Glucose 131 H POC Glucose 123 H 133 H Lactic Acid Calcium Magnesium Direct Bilirubin AST Total Creatine Kinase Troponin T NT-Pro-B Natriuret Pep Albumin Triglycerides LDL Cholesterol Direct HDL Cholesterol 12/30/18 12/30/18 05:50 09:24 WBC RBC RDW Plt Count Seg Neuts % (Manual) Lymphocytes % (Manual) Seg Neutrophils # Man Lymphocytes # (Manual) PT INR APTT Heparin Anti-Xa Level Sodium Potassium Carbon Dioxide BUN Creatinine Glucose POC Glucose 157 H 169 H Lactic Acid Calcium Magnesium Direct Bilirubin AST Total Creatine Kinase Troponin T NT-Pro-B Natriuret Pep Albumin Triglycerides LDL Cholesterol Direct HDL Cholesterol Chest x-ray: report reviewed (Possible right basilar pneumonia.), image reviewed CT scan - chest: report reviewed (Right lower lobe pneumonia.), image reviewed Allied health notes reviewed: nursing
[2018-12-30] MEDS: POTASSIUM CHLORIDE 20 MEQ PACKET FEEDTUBE SCH (17:06)
[2018-12-30] MEDS: AZITHROMYCIN 500 MG in SODIUM CHLORIDE 0.9% 250ML 250 ML IV SCH (17:07)
[2018-12-31] MEDS: METOPROLOL TARTRATE 25 MG TAB PO SCH ×4 (08:16→22:22)
[2018-12-31] MEDS: traMADol 50 MG TAB PO SCH ×4 (08:16→22:22)
--- NOTE | 2018-12-31 08:36 | Event Note ---
Date: 12/31/[address] resting quietly. vss chest clear cor rrr abd soft potassium 3.4. was 2.9. continue to supplement tel: sinus/pac's/?intermittent junctional rhythm imp afib converted to sinus rhythm family has decided pt not a good candidate for oral ac due to adv age and fall risk continue current mgt/per pulm-- rll pneumonia no new card rec at this time no family member present at time of encounter recheck bmp
[2018-12-31] MEDS: ASPIRIN 81 MG TAB CHEW PO SCH (10:04)
[2018-12-31] MEDS: SERTRALINE 100 MG TAB PO SCH (10:04)
[2018-12-31] MEDS: LIDOCAINE 5% 1 EACH PATCH TD SCH (10:05)
[2018-12-31] MEDS: cefTRIAXone/NS 2 GM/100 ML 2 GM/100 ML BAG IV SCH (10:05)
[2018-12-31] MEDS: POTASSIUM CHLORIDE 20 MEQ PACKET FEEDTUBE SCH (10:05)
[2018-12-31] MEDS: ENOXAPARIN 30 MG/0.3 ML INJ SUB-Q SCH (10:05)
[2018-12-31] MEDS: FAMOTIDINE 20 MG TAB PO SCH (10:05)
[2018-12-31] MEDS: AZITHROMYCIN 500 MG in SODIUM CHLORIDE 0.9% 250ML 250 ML IV SCH (10:06)
[2018-12-31] MEDS ORDERED: MAGNESIUM SULFATE 2 GM/50 ML BAG IV ONE (11:00)
--- NOTE | 2018-12-31 11:34 | Progress Note ---
Assessment and Plan Assessment and plan: --Dysphagia/metabolic encephalopathy Dobbhoff feeds, speech and swallow evaluated recommend pure diet DC Dobbhoff, aspiration precautions, pured diet as tolerated --Hypokalemia: Corrected --Hypomagnessemia: Mag sulf IV, follow electrolytes --RLL pneumonia, possible aspiration No evidence of clinical evidence of respiratory compromise. s/p 5 days of Rocephin and Zithromax, nebs as needed.f/u cultures --Possible Sepsis / recent UTI /aspiration PNA presented with Leukocytosis. T Max 104.9 thus far. Received 5 days of Rocephin, follow cx Symptoms improved --Paroxysmal atrial fibrillation with RVR : New onset,Currently in SR, Off amio gtt. Cont PO lopressor and titrate as tolerated. heparin gtt.discontinued, patient not a candidate for chronic anticoagulation Due to advanced age and recurrent falls, cardiology recommended aspirin 162 mg daily Echo reviewed - EF 50-55%, abnormal diastolic function. Thyroid profile WNL. --ROSEMARIE : vasomotor nephropathy, Resolved, avoid nephrotoxins --Hypertension: Stable --Dementia supportive care, s/p speech/swallow evaln Cleared for pured diet with thickened liquids --Advanced age with debility PT eval when medically more stable --DVT prophylaxis:Heparin drip. DC planning. Case management; possible home with home health [facility] stable Plan of care reviwed with the patient's nurse History Interval history: Patient seen and examined this morning medical records reviewed Patient is restrained for safety, confused Speech and swallow evaluated the patient and cleared for pured diet with thin liquids Alert awake not in acute distress Vital signs noted Hospitalist Physical - Constitutional Vitals: Temp Pulse Resp BP Pulse Ox 98.5 F 83 20 125/73 96 12/31/18 07:49 12/31/18 08:16 12/31/18 08:16 12/31/18 08:16 12/31/18 07:49 General appearance: Present: no acute distress, well-nourished, other (confused) - EENT Eyes: Present: PERRL, EOM intact - Neck Neck: Present: supple, normal ROM - Respiratory Respiratory effort: normal Respiratory: bilateral: diminished, rales, negative: rhonchi, wheezing, other - Cardiovascular Rhythm: regular Heart Sounds: Present: S1 & S2 - Extremities Extremities: no ischemia, No edema - Abdominal General gastrointestinal: soft, non-tender, non-distended, normal bowel sounds - Integumentary Integumentary: Present: clear, warm - Psychiatric Psychiatric: agitated, other (confused/dementia) - Neurologic Neurologic: moves all extremities Results - Labs CBC & Chem 7: 12/29/18 05:10 12/31/18 08:23 Labs: Laboratory Last Values WBC 8.7 K/mm3 (4.5-11.0) 12/28/18 10:30 RBC 3.64 M/mm3 (3.65-5.03) L 12/28/18 10:30 Hgb 10.5 gm/dl (10.1-14.3) 12/29/18 05:10 Hct 32.2 % (30.3-42.9) 12/29/18 05:10 MCV 89 fl (79-97) 12/28/18 10:30 MCH 29 pg (28-32) 12/28/18 10:30 MCHC 33 % (30-34) 12/28/18 10:30 RDW 15.3 % (13.2-15.2) H 12/28/18 10:30 Plt Count 138 K/mm3 (140-440) L 12/29/18 05:10 Add Manual Diff Complete 12/27/18 03:55 Total Counted 100 12/27/18 03:55 Seg Neutrophils % Fitter Type Bar And Segment 12/27/18 03:55 Seg Neuts % (Manual) 95.0 % (40.0-70.0) H 12/27/18 03:55 Band Neutrophils % 0 % 12/27/18 03:55 Lymphocytes % (Manual) 3.0 % (13.4-35.0) L 12/27/18 03:55 Reactive Lymphs % (Man) 0 % 12/27/18 03:55 Monocytes % (Manual) 2.0 % (0.0-7.3) 12/27/18 03:55 Eosinophils % (Manual) 0 % (0.0-4.3) 12/27/18 03:55 Basophils % (Manual) 0 % (0.0-1.8) 12/27/18 03:55 Metamyelocytes % 0 % 12/27/18 03:55 Myelocytes % 0 % 12/27/18 03:55 Promyelocytes % 0 % 12/27/18 03:55 Blast Cells % 0 % 12/27/18 03:55 Nucleated RBC % Not Reportable 12/27/18 03:55 Seg Neutrophils # Man 15.9 K/mm3 (1.8-7.7) H 12/27/18 03:55 Band Neutrophils # 0.0 K/mm3 12/27/18 03:55 Lymphocytes # (Manual) 0.5 K/mm3 (1.2-5.4) L 12/27/18 03:55 Abs React Lymphs (Man) 0.0 K/mm3 12/27/18 03:55 Monocytes # (Manual) 0.3 K/mm3 (0.0-0.8) 12/27/18 03:55 Eosinophils # (Manual) 0.0 K/mm3 (0.0-0.4) 12/27/18 03:55 Basophils # (Manual) 0.0 K/mm3 (0.0-0.1) 12/27/18 03:55 Metamyelocytes # 0.0 K/mm3 12/27/18 03:55 Myelocytes # 0.0 K/mm3 12/27/18 03:55 Promyelocytes # 0.0 K/mm3 12/27/18 03:55 Blast Cells # 0.0 K/mm3 12/27/18 03:55 WBC Morphology Not Reportable 12/27/18 03:55 Hypersegmented Neuts Not Reportable 12/27/18 03:55 Hyposegmented Neuts Not Reportable 12/27/18 03:55 Hypogranular Neuts Not Reportable 12/27/18 03:55 Smudge Cells Not Reportable 12/27/18 03:55 Toxic Granulation Not Reportable 12/27/18 03:55 Toxic Vacuolation Not Reportable 12/27/18 03:55 Dohle Bodies Not Reportable 12/27/18 03:55 Pelger-Huet Anomaly Not Reportable 12/27/18 03:55 Rossana Rods Not Reportable 12/27/18 03:55 Platelet Estimate Consistent w auto 12/27/18 03:55 Clumped Platelets Not Reportable 12/27/18 03:55 Plt Clumps, EDTA Not Reportable 12/27/18 03:55 Large Platelets 1+ 12/27/18 03:55 Giant Platelets Not Reportable 12/27/18 03:55 Platelet Satelliting Not Reportable 12/27/18 03:55 Plt Morphology Comment Not Reportable 12/27/18 03:55 RBC Morphology Not Reportable 12/27/18 03:55 Dimorphic RBCs Not Reportable 12/27/18 03:55 Polychromasia Not Reportable 12/27/18 03:55 Hypochromasia Not Reportable 12/27/18 03:55 Poikilocytosis Not Reportable 12/27/18 03:55 Anisocytosis Few 12/27/18 03:55 Microcytosis Rare 12/27/18 03:55 Macrocytosis Not Reportable 12/27/18 03:55 Spherocytes Not Reportable 12/27/18 03:55 Pappenheimer Bodies Not Reportable 12/27/18 03:55 Sickle Cells Not Reportable 12/27/18 03:55 Target Cells Not Reportable 12/27/18 03:55 Tear Drop Cells Not Reportable 12/27/18 03:55 Ovalocytes Few 12/27/18 03:55 Helmet Cells Not Reportable 12/27/18 03:55 [place] Bodies Not Reportable 12/27/18 03:55 [place] Rings Not Reportable 12/27/18 03:55 [place] Cells Not Reportable 12/27/18 03:55 Bite Cells Not Reportable 12/27/18 03:55 Crenated Cell Not Reportable 12/27/18 03:55 Elliptocytes Rare 12/27/18 03:55 Acanthocytes (Spur) Not Reportable 12/27/18 03:55 Rouleaux Not Reportable 12/27/18 03:55 Hemoglobin C Crystals Not Reportable 12/27/18 03:55 Schistocytes Not Reportable 12/27/18 03:55 Malaria parasites Not Reportable 12/27/18 03:55 Júnior Bodies Not Reportable 12/27/18 03:55 Hem Pathologist Commnt No 12/27/18 03:55 PT 15.6 Sec. (12.2-14.9) H 12/27/18 10:37 INR 1.27 (0.87-1.13) H 12/27/18 10:37 APTT 32.0 Sec. (24.2-36.6) 12/27/18 10:37 Heparin Anti-Xa Level 0.32 U.I./ml (0.3-0.7) 12/29/18 19:55 Sodium 141 mmol/L (137-145) 12/30/18 03:35 Potassium 4.3 mmol/L (3.6-5.0) D 12/31/18 08:23 Chloride 103.8 mmol/L (98-107) 12/30/18 03:35 Carbon Dioxide 23 mmol/L (22-30) 12/30/18 03:35 Anion Gap 18 mmol/L 12/30/18 03:35 BUN 25 mg/dL (7-17) H 12/30/18 03:35 Creatinine 1.2 mg/dL (0.7-1.2) 12/30/18 03:35 Estimated GFR 51 ml/min 12/30/18 03:35 BUN/Creatinine Ratio 21 % 12/30/18 03:35 Glucose 131 mg/dL (65-100) H 12/30/18 03:35 POC Glucose 147 (70-105) H 12/31/18 08:00 Lactic Acid 1.90 mmol/L (0.7-2.0) 12/27/18 02:27 Calcium 10.2 mg/dL (8.4-10.2) 12/30/18 03:35 Phosphorus 2.50 mg/dL (2.5-4.5) 12/27/18 03:55 Magnesium 1.60 mg/dL (1.7-2.3) L 12/31/18 08:23 Total Bilirubin 0.60 mg/dL (0.1-1.2) 12/26/18 23:00 Direct Bilirubin 0.4 mg/dL (0-0.2) H 12/26/18 23:00 Indirect Bilirubin 0.2 mg/dL 12/26/18 23:00 AST 109 units/L (5-40) H 12/26/18 23:00 ALT 35 units/L (7-56) 12/26/18 23:00 Alkaline Phosphatase 84 units/L (35-129) 12/26/18 23:00 Total Creatine Kinase 233 units/L (30-135) H 12/27/18 09:26 CK-MB (CK-2) 2.2 ng/mL (0.0-4.0) 12/27/18 09:26 CK-MB (CK-2) Rel Index 0.9 (0-4) 12/27/18 09:26 Troponin T 0.022 ng/mL (0.00-0.029) 12/27/18 09:26 NT-Pro-B Natriuret Pep 1809 pg/mL (0-900) H 12/26/18 22:44 Total Protein 6.7 g/dL (6.3-8.2) 12/26/18 23:00 Albumin 3.4 g/dL (3.9-5) L 12/26/18 23:00 Albumin/Globulin Ratio 1.0 % 12/26/18 23:00 Triglycerides 201 mg/dL (2-149) H 12/26/18 22:44 Cholesterol 137 mg/dL (50-199) 12/26/18 22:44 LDL Cholesterol Direct 46 mg/dL (50-130) L 12/26/18 22:44 HDL Cholesterol 31 mg/dL (40-59) L 12/26/18 22:44 Cholesterol/HDL Ratio 4.41 % 12/26/18 22:44 TSH 0.391 mlU/mL (0.270-4.200) 12/27/18 10:37 Free T4 0.86 ng/dL (0.76-1.46) 12/27/18 10:37 Active Medications - Current Medications Current Medications: Generic Name Dose Route Start Last Admin Trade Name Freq PRN Reason Stop Dose Admin Acetaminophen 650 mg 12/27/18 03:43 Tylenol MD Q4H PRN Pain MILD(1-3)/Fever >100.5/DUNBAR Albuterol 2.5 mg 12/28/18 12:11 Proventil IH Q6HRT PRN Shortness Of Breath Lipase/Protease/Amylase 1 each 12/27/18 13:[address] 10,500 Unit FEEDTUBE PRN PRN For Clogged Feeding Tube Aspirin 162 mg 12/30/18 10:00 12/31/18 10:04 Baby Aspirin PO 162 mg QDAY ROBERTO Administration Dextrose 50 ml 12/27/18 03:53 12/27/18 23:40 D50w (25gm) Syringe IV 50 ml PRN PRN Administration Hypoglycemia Enoxaparin Sodium 30 mg 12/30/18 10:00 12/31/18 10:05 Lovenox SUB-Q 30 mg QDAY ROBERTO Administration Famotidine 20 mg 12/28/18 13:00 12/31/18 10:05 Pepcid PO 20 mg DAILY ROBERTO Administration Dextrose/Sodium Chloride 1,000 mls @ 75 mls/hr 12/27/18 04:00 12/30/18 23:03 D5/0.45ns IV 75 mls/hr DIRECT ROBERTO Administration Magnesium Sulfate 2 gm in 50 mls @ 25 mls/hr 12/31/18 11:00 Magnesium Sulfate 2gm/50ml IV 12/31/18 12:59 ONCE ONE Lidocaine 1 each 12/27/18 12:00 12/31/18 10:05 Lidoderm 5% TD 1 each QDAY ROBERTO Administration Metoprolol Tartrate 25 mg 12/27/18 14:00 12/31/18 08:16 Lopressor PO 25 mg TID ROBERTO Administration Morphine Sulfate 2 mg 12/27/18 11:26 12/29/18 16:41 Morphine IV 2 mg Q3H PRN Administration Pain, Moderate (4-6) Ondansetron HCl 4 mg 12/27/18 03:43 Zofran IV Q4H PRN Nausea And Vomiting Potassium Chloride 40 meq 12/29/18 18:00 12/31/18 10:05 Potassium Chloride FEEDTUBE 40 meq QDAY ROBERTO Administration Sertraline HCl 100 mg 12/28/18 10:00 12/31/18 10:04 Zoloft PO 100 mg QDAY ROBERTO Administration Simple Syrup 15 ml 12/27/18 13:47 Simple Syrup FEEDTUBE PRN PRN Hypoglycemia Simple Syrup 30 ml 12/27/18 13:47 Simple Syrup FEEDTUBE PRN PRN Hypoglycemia Sodium Bicarbonate 325 mg 12/27/18 13:47 Sodium Bicarbonate FEEDTUBE PRN PRN For Clogged Feeding Tube Sodium Chloride 10 ml 12/27/18 10:00 12/31/18 10:06 Sodium Chloride Flush Syringe 10 Ml IV 10 ml BID ROBERTO Administration Sodium Chloride 10 ml 12/27/18 03:43 Sodium Chloride Flush Syringe 10 Ml IV PRN PRN LINE FLUSH Tramadol HCl 50 mg 12/27/18 20:00 12/31/18 08:16 Ultram PO 50 mg TID ROBERTO Administration Nutrition/Malnutrition Assess - Dietary Evaluation Nutrition/Malnutrition Findings: Nutrition Notes Start: 12/27/18 10:22 Freq: Status: Active Protocol: Document 12/28/18 13:36 KATIE (Rec: 12/28/18 13:53 KATIE [email or web address]) Co-Sign 12/28/18 13:36 KH Nutrition Notes Initial or Follow up Reassessment Current Diagnosis Acute Kidney Injury,Diabetes, Hypertension Other Pertinent Diagnosis Dementia, pneumonia Current Diet Glucerna 1.2 at 10ml/hr Labs/Tests CO2 20 BUN 34 Cr 1.4 Pertinent Medications Dextrose/Na Cl 1,000ml at 75ml /hr Height 5 ft 1 in Weight 61.5 kg Regina Body Weight (kg) 47.72 BMI 25.6 Subjective/Other Information MD consult to increase TF rate Minimum of two criteria No #1 Nutrition Diagnosis Inadequate oral intake Diagnosis Progress(for reassessment Continues documentation) Is patient on ventilator? No Is Patient Ambulatory and/or Out of Bed No REE[facility]) 1192.464 Kcal/Kg value to use for calculation 22 Approximate Energy Requirements Using 1353 kcal/Kg Calculation Used for Recommendations Kcal/kg Additional Notes Protein needs: 62g-74g/kg (1g- 1.2g/kg) Fluid needs: 1ml/kg Nutrition Intervention Nutrition Support: Glucerna 1.2 at 45ml/hr Water flush 100ml q4hr Kcal 1,296 Protein (gm) 65 Fluid (mL) 869 Goal #1 TF goal rate Goal #2 Meet at least 80% of energy and protein needs Anticipated Discharge Needs: Unable to determine Follow-Up By: 01/01/19 Additional Comments F/U for TF tolerance
--- NOTE | 2018-12-31 14:35 | Progress Note ---
Assessment and Plan Patient awake but weak. Patient is not using her o2. No acute respiratory distress. O2 saturation 98%. CT of chest showing right lower lobe infiltrate.Patient is on Zithromax and ceftriaxone. Patient afebrile. Leukocyte count came down. - Patient Problems (1) Right lower lobe pneumonia Current Visit: Yes Status: Acute Plan to address problem: Patient is on Zithromax and Ceftrioxone. (2) Dementia Current Visit: Yes Status: Acute Plan to address problem: Management as per primary care. Subjective Date of service: 12/31/18 Principal diagnosis: Sepsis; RLL PNA; Acute encephalopathy; A-Fib with RVR ROSEMARIE; Hypokalemia Interval history: Patient awake but weak. Patient is not using her o2. No acute respiratory distress. O2 saturation 98%. CT of chest showing right lower lobe infiltrate.Patient is on Zithromax and ceftriaxone. Patient afebrile. Leukocyte count came down. Objective Vital Signs - 12hr 12/31/18 12/31/18 12/31/18 04:00 04:05 07:49 Temperature 98.5 F 98.5 F Pulse Rate 70 39 L 83 Pulse Rate [ From Monitor] Respiratory 18 18 Rate Blood Pressure 136/69 125/73 Blood Pressure [Left] O2 Sat by Pulse 90 96 Oximetry 12/31/18 12/31/18 12/31/18 08:16 10:00 11:32 Temperature Pulse Rate 83 74 Pulse Rate [ 80 From Monitor] Respiratory 20 20 Rate Blood Pressure 125/73 71/44 Blood Pressure [Left] O2 Sat by Pulse 97 90 Oximetry 12/31/18 12:00 Temperature Pulse Rate 72 Pulse Rate [ From Monitor] Respiratory 18 Rate Blood Pressure Blood Pressure 137/79 [Left] O2 Sat by Pulse 98 Oximetry Constitutional: no acute distress, alert Eyes: non-icteric ENT: oropharynx moist, oropharyngeal exudate pre Neck: supple, no JVD Effort: mildly labored Ascultation: Right: rales (base), rhonchi (Right base.), Bilateral: diminished breath sounds (base) Percussion: Bilateral: not dull Cardiovascular: regular rate and rhythm Gastrointestinal: normoactive bowel sounds, soft, non-tender, non-distended Extremities: no cyanosis, no edema, pulses normal, no ischemia or petechiae Neurologic: non-focal exam (grossly), pupils equal and round, CN II-XII normal, other (insonsistently following prompt's) Psychiatric: anxious, other CBC and BMP: 12/29/18 05:10 12/31/18 08:23 ABG, PT/INR, D-dimer: PT/INR, D-dimer PT 15.6 Sec. (12.2-14.9) H 12/27/18 10:37 INR 1.27 (0.87-1.13) H 12/27/18 10:37 Abnormal lab findings: Abnormal Labs 12/26/18 12/26/18 12/26/18 22:44 22:44 22:44 WBC 20.5 H RBC RDW Plt Count Seg Neuts % (Manual) 95.0 H Lymphocytes % (Manual) 4.0 L Seg Neutrophils # Man 19.5 H Lymphocytes # (Manual) 0.8 L PT 15.5 H INR 1.26 H APTT 41.0 H Heparin Anti-Xa Level Sodium Potassium 3.0 L Carbon Dioxide BUN 58 H Creatinine 2.0 H Glucose 120 H POC Glucose Lactic Acid Calcium 11.3 H Magnesium Direct Bilirubin AST Total Creatine Kinase Troponin T NT-Pro-B Natriuret Pep 1809 H Albumin Triglycerides LDL Cholesterol Direct HDL Cholesterol 12/26/18 12/26/18 12/26/18 22:44 22:44 22:44 WBC RBC RDW Plt Count Seg Neuts % (Manual) Lymphocytes % (Manual) Seg Neutrophils # Man Lymphocytes # (Manual) PT INR APTT Heparin Anti-Xa Level Sodium Potassium Carbon Dioxide BUN Creatinine Glucose POC Glucose Lactic Acid 2.30 H* Calcium 11.1 H Magnesium Direct Bilirubin AST Total Creatine Kinase Troponin T 0.037 H NT-Pro-B Natriuret Pep Albumin Triglycerides 201 H LDL Cholesterol Direct 46 L HDL Cholesterol 31 L 12/26/18 12/26/18 12/27/18 23:00 23:50 00:22 WBC RBC RDW Plt Count Seg Neuts % (Manual) Lymphocytes % (Manual) Seg Neutrophils # Man Lymphocytes # (Manual) PT INR APTT Heparin Anti-Xa Level Sodium 147 H Potassium 2.9 L* Carbon Dioxide BUN 58 H Creatinine 2.1 H Glucose 123 H POC Glucose Lactic Acid 2.40 H* Calcium 10.6 H Magnesium Direct Bilirubin 0.4 H AST 109 H Total Creatine Kinase Troponin T NT-Pro-B Natriuret Pep Albumin 3.4 L Triglycerides LDL Cholesterol Direct HDL Cholesterol 12/27/18 12/27/18 12/27/18 03:55 03:55 09:26 WBC 16.7 H RBC RDW Plt Count Seg Neuts % (Manual) 95.0 H Lymphocytes % (Manual) 3.0 L Seg Neutrophils # Man 15.9 H Lymphocytes # (Manual) 0.5 L PT INR APTT Heparin Anti-Xa Level Sodium 147 H Potassium 3.0 L Carbon Dioxide BUN 53 H Creatinine 1.8 H Glucose POC Glucose Lactic Acid Calcium Magnesium Direct Bilirubin AST Total Creatine Kinase 248 H 233 H Troponin T NT-Pro-B Natriuret Pep Albumin Triglycerides LDL Cholesterol Direct HDL Cholesterol 12/27/18 12/27/18 12/27/18 10:37 16:16 18:28 WBC RBC RDW Plt Count Seg Neuts % (Manual) Lymphocytes % (Manual) Seg Neutrophils # Man Lymphocytes # (Manual) PT 15.6 H INR 1.27 H APTT Heparin Anti-Xa Level 0.81 H Sodium Potassium Carbon Dioxide BUN Creatinine Glucose POC Glucose 42 L Lactic Acid Calcium Magnesium Direct Bilirubin AST Total Creatine Kinase Troponin T NT-Pro-B Natriuret Pep Albumin Triglycerides LDL Cholesterol Direct HDL Cholesterol 12/27/18 12/27/18 12/27/18 18:30 19:34 22:42 WBC RBC RDW Plt Count Seg Neuts % (Manual) Lymphocytes % (Manual) Seg Neutrophils # Man Lymphocytes # (Manual) PT INR APTT Heparin Anti-Xa Level 0.71 H Sodium Potassium Carbon Dioxide BUN Creatinine Glucose POC Glucose 54 L 119 H Lactic Acid Calcium Magnesium Direct Bilirubin AST Total Creatine Kinase Troponin T NT-Pro-B Natriuret Pep Albumin Triglycerides LDL Cholesterol Direct HDL Cholesterol 12/27/18 12/28/18 12/28/18 23:34 10:30 10:30 WBC RBC 3.64 L RDW 15.3 H Plt Count Seg Neuts % (Manual) Lymphocytes % (Manual) Seg Neutrophils # Man Lymphocytes # (Manual) PT INR APTT Heparin Anti-Xa Level Sodium Potassium Carbon Dioxide 20 L BUN 34 H Creatinine 1.4 H Glucose POC Glucose 60 L Lactic Acid Calcium Magnesium Direct Bilirubin AST Total Creatine Kinase Troponin T NT-Pro-B Natriuret Pep Albumin Triglycerides LDL Cholesterol Direct HDL Cholesterol 12/29/18 12/29/18 12/29/18 00:49 05:10 05:10 WBC RBC RDW Plt Count 138 L Seg Neuts % (Manual) Lymphocytes % (Manual) Seg Neutrophils # Man Lymphocytes # (Manual) PT INR APTT Heparin Anti-Xa Level Sodium Potassium 2.6 L* D Carbon Dioxide BUN 31 H Creatinine 1.3 H Glucose POC Glucose Lactic Acid Calcium 10.3 H Magnesium 1.60 L Direct Bilirubin AST Total Creatine Kinase Troponin T NT-Pro-B Natriuret Pep Albumin Triglycerides LDL Cholesterol Direct HDL Cholesterol 12/29/18 12/29/18 12/29/18 06:47 11:26 14:28 WBC RBC RDW Plt Count Seg Neuts % (Manual) Lymphocytes % (Manual) Seg Neutrophils # Man Lymphocytes # (Manual) PT INR APTT Heparin Anti-Xa Level 0.23 L Sodium Potassium 2.9 L* Carbon Dioxide BUN Creatinine Glucose POC Glucose 150 H Lactic Acid Calcium Magnesium Direct Bilirubin AST Total Creatine Kinase Troponin T NT-Pro-B Natriuret Pep Albumin Triglycerides LDL Cholesterol Direct HDL Cholesterol 12/29/18 12/30/18 12/30/18 20:26 00:34 03:35 WBC RBC RDW Plt Count Seg Neuts % (Manual) Lymphocytes % (Manual) Seg Neutrophils # Man Lymphocytes # (Manual) PT INR APTT Heparin Anti-Xa Level Sodium Potassium 3.4 L Carbon Dioxide BUN 25 H Creatinine Glucose 131 H POC Glucose 123 H 133 H Lactic Acid Calcium Magnesium Direct Bilirubin AST Total Creatine Kinase Troponin T NT-Pro-B Natriuret Pep Albumin Triglycerides LDL Cholesterol Direct HDL Cholesterol 12/30/18 12/30/18 12/30/18 05:50 09:24 16:39 WBC RBC RDW Plt Count Seg Neuts % (Manual) Lymphocytes % (Manual) Seg Neutrophils # Man Lymphocytes # (Manual) PT INR APTT Heparin Anti-Xa Level Sodium Potassium Carbon Dioxide BUN Creatinine Glucose POC Glucose 157 H 169 H 138 H Lactic Acid Calcium Magnesium Direct Bilirubin AST Total Creatine Kinase Troponin T NT-Pro-B Natriuret Pep Albumin Triglycerides LDL Cholesterol Direct HDL Cholesterol 12/31/18 12/31/18 12/31/18 01:07 05:36 08:00 WBC RBC RDW Plt Count Seg Neuts % (Manual) Lymphocytes % (Manual) Seg Neutrophils # Man Lymphocytes # (Manual) PT INR APTT Heparin Anti-Xa Level Sodium Potassium Carbon Dioxide BUN Creatinine Glucose POC Glucose 131 H 133 H 147 H Lactic Acid Calcium Magnesium Direct Bilirubin AST Total Creatine Kinase Troponin T NT-Pro-B Natriuret Pep Albumin Triglycerides LDL Cholesterol Direct HDL Cholesterol 12/31/18 08:23 WBC RBC RDW Plt Count Seg Neuts % (Manual) Lymphocytes % (Manual) Seg Neutrophils # Man Lymphocytes # (Manual) PT INR APTT Heparin Anti-Xa Level Sodium Potassium Carbon Dioxide BUN Creatinine Glucose POC Glucose Lactic Acid Calcium Magnesium 1.60 L Direct Bilirubin AST Total Creatine Kinase Troponin T NT-Pro-B Natriuret Pep Albumin Triglycerides LDL Cholesterol Direct HDL Cholesterol Allied health notes reviewed: nursing
[2018-12-31] MEDS: D5W/0.45% NACL 1,000 ML IV SCH (22:20)
[2019-01-01] MEDS: MORPHINE 2 MG/1 ML INJ IV PRN ×3 (00:21→18:50)
--- NOTE | 2019-01-01 08:40 | XRay Report ---
CHEST 2 VIEWS INDICATION: Follow up on pneumonia. COMPARISON: 12/26/2018 FINDINGS: Support devices: None. Heart: Within normal limits. Lungs/pleura: Hazy infiltrate in the right lower lobe has decreased by 50%. A small right pleural eff usion has developed. The left lung remains clear. No pneumothorax. Additional findings: None. IMPRESSION: 50% improvement in the right lower lobe infiltrate. New small right pleural effusion. Signer Name: Patric Fontanez Jr, MD Signed: 01/01/2019 8:35 AM Workstation Name: [id number]
[2019-01-01 10:24] LABS: BUN/Creatinine Ratio 18; Blood Urea Nitrogen 16 mg/dL (7-17); Calcium 9.3 mg/dL (8.4-10.2); Hemolysis Index 11
[2019-01-01] MEDS: POTASSIUM CHLORIDE 20 MEQ PACKET FEEDTUBE SCH (10:52)
[2019-01-01] MEDS: ASPIRIN 81 MG TAB CHEW PO SCH (10:53)
[2019-01-01] MEDS: SERTRALINE 100 MG TAB PO SCH (10:53)
[2019-01-01] MEDS: FAMOTIDINE 20 MG TAB PO SCH (10:53)
[2019-01-01] MEDS: traMADol 50 MG TAB PO SCH ×3 (10:53→22:21)
[2019-01-01] MEDS: METOPROLOL TARTRATE 25 MG TAB PO SCH ×3 (10:54→22:21)
[2019-01-01] MEDS: ENOXAPARIN 30 MG/0.3 ML INJ SUB-Q SCH (10:57)
[2019-01-01] MEDS: LIDOCAINE 5% 1 EACH PATCH TD SCH (11:32)
--- NOTE | 2019-01-01 11:36 | Progress Note ---
Assessment and Plan Paroxysmal atrial fibrillation with RVR New diagnosis. Likely precipitated by acute infection/sepsis. Currently in SR. Cont PO lopressor. Pt's family declines retirement AC in setting of advanced dementia, frequent falls and advanced age. Echo reviewed - EF 50-55%, abnormal diastolic function. Thyroid profile WNL. RBBB Appears chronic when compared to [facility] ECGs from 2013. Echo reviewed - EF 50-55%, abnormal diastolic function. RLL pneumonia, possible aspiration No current clinical evidence of respiratory compromise. Management per pulmonary. ? Sepsis / recent UTI Leukocytosis. T Max 104.9. Blood cultures negative to date. Abx per primary. Hypokalemia / Hypomag Replete lytes PRN. F/u BMP and Mg in AM. ROSEMARIE Improving. Hypertension Stable Dementia Advanced age Currently stable cardiac status. Nothing further to add from cardiac perspective at this time. Will sign off. Recommend follow up in our office with Dr. Stewart within 1-2 weeks of discharge ([phone]). The patient has been seen in conjunction with Dr. Garcia who agrees with the assessment and plan of care. Subjective Date of service: 01/01/19 Principal diagnosis: Sepsis; RLL PNA; Acute encephalopathy; A-Fib with RVR ROSEMARIE; Hypokalemia Interval history: pt resting in bed, no apparent distress no family at bedside. in SR on telemetry. Objective Last Vital Signs Temp 97.8 F 01/01/19 07:44 Pulse 76 01/01/19 10:54 Resp 18 01/01/19 07:44 BP 128/69 01/01/19 07:44 Pulse Ox 93 01/01/19 07:44 - Physical Examination General: No Apparent Distress HEENT: Positive: PERRL Neck: Positive: neck supple, trachea midline Cardiac: Positive: Reg Rate and Rhythm, S1/S2 Lungs: Positive: Decreased Breath Sounds Neuro: Positive: Grossly Intact Abdomen: Negative: Tender Skin: Negative: Rash Musculoskeletal: No Pain Extremities: Absent: edema - Labs and Meds Comprehensive Metabolic Panel 01/01/19 Range/Units 09:24 Sodium 141 (137-145) mmol/L Potassium 4.6 (3.6-5.0) mmol/L Chloride 107.2 H (98-107) mmol/L Carbon Dioxide 24 (22-30) mmol/L BUN 16 (7-17) mg/dL Creatinine 0.9 (0.7-1.2) mg/dL Glucose 122 H (65-100) mg/dL Calcium 9.3 (8.4-10.2) mg/dL - Imaging and Cardiology EKG: report reviewed, image reviewed Echo: report reviewed - Telemetry EKG Rhythm: Sinus Rhythm - Allied health notes Allied health notes reviewed: nursing
--- NOTE | 2019-01-01 13:23 | Progress Note ---
Assessment and Plan Patient awake but weak. Patient is on 2 litres O2. No acute respiratory distress. O2 saturation 99%. Patients chest xray reported improving right lower lobe infiltrate. Patient afebrile. Leukocyte count came down. - Patient Problems (1) Right lower lobe pneumonia Current Visit: Yes Status: Acute Plan to address problem: Patient is on Zithromax and Ceftrioxone. (2) Dementia Current Visit: Yes Status: Acute Plan to address problem: Management as per primary care. Subjective Date of service: 01/01/19 Principal diagnosis: Sepsis; RLL PNA; Acute encephalopathy; A-Fib with RVR ROSEMARIE; Hypokalemia Interval history: Patient awake but weak. Patient is on 2 litres O2. No acute respiratory distress. O2 saturation 99%. Patients chest xray reported improving right lower lobe infiltrate. Patient afebrile. Leukocyte count came down. Objective Vital Signs - 12hr 01/01/19 01/01/19 01/01/19 04:33 07:44 10:54 Temperature 98.6 F 97.8 F Pulse Rate 78 69 76 Respiratory 18 18 Rate Blood Pressure 134/76 128/69 O2 Sat by Pulse 98 93 Oximetry 01/01/19 11:19 Temperature 98.4 F Pulse Rate 75 Respiratory 18 Rate Blood Pressure 101/65 O2 Sat by Pulse 100 Oximetry Constitutional: no acute distress, alert Eyes: non-icteric ENT: oropharynx moist, oropharyngeal exudate pre Neck: supple, no JVD Effort: mildly labored Ascultation: Right: rales (base), rhonchi (Right base.), Bilateral: diminished breath sounds (base) Percussion: Bilateral: not dull Cardiovascular: regular rate and rhythm Gastrointestinal: normoactive bowel sounds, soft, non-tender, non-distended Extremities: no cyanosis, no edema, pulses normal, no ischemia or petechiae Neurologic: non-focal exam (grossly), pupils equal and round, CN II-XII normal, other (insonsistently following prompt's) Psychiatric: anxious, other CBC and BMP: 12/29/18 05:10 01/01/19 09:24 ABG, PT/INR, D-dimer: PT/INR, D-dimer PT 15.6 Sec. (12.2-14.9) H 12/27/18 10:37 INR 1.27 (0.87-1.13) H 12/27/18 10:37 Abnormal lab findings: Abnormal Labs 12/26/18 12/26/18 12/26/18 22:44 22:44 22:44 WBC 20.5 H RBC RDW Plt Count Seg Neuts % (Manual) 95.0 H Lymphocytes % (Manual) 4.0 L Seg Neutrophils # Man 19.5 H Lymphocytes # (Manual) 0.8 L PT 15.5 H INR 1.26 H APTT 41.0 H Heparin Anti-Xa Level Sodium Potassium 3.0 L Chloride Carbon Dioxide BUN 58 H Creatinine 2.0 H Glucose 120 H POC Glucose Lactic Acid Calcium 11.3 H Magnesium Direct Bilirubin AST Total Creatine Kinase Troponin T NT-Pro-B Natriuret Pep 1809 H Albumin Triglycerides LDL Cholesterol Direct HDL Cholesterol 12/26/18 12/26/18 12/26/18 22:44 22:44 22:44 WBC RBC RDW Plt Count Seg Neuts % (Manual) Lymphocytes % (Manual) Seg Neutrophils # Man Lymphocytes # (Manual) PT INR APTT Heparin Anti-Xa Level Sodium Potassium Chloride Carbon Dioxide BUN Creatinine Glucose POC Glucose Lactic Acid 2.30 H* Calcium 11.1 H Magnesium Direct Bilirubin AST Total Creatine Kinase Troponin T 0.037 H NT-Pro-B Natriuret Pep Albumin Triglycerides 201 H LDL Cholesterol Direct 46 L HDL Cholesterol 31 L 12/26/18 12/26/18 12/27/18 23:00 23:50 00:22 WBC RBC RDW Plt Count Seg Neuts % (Manual) Lymphocytes % (Manual) Seg Neutrophils # Man Lymphocytes # (Manual) PT INR APTT Heparin Anti-Xa Level Sodium 147 H Potassium 2.9 L* Chloride Carbon Dioxide BUN 58 H Creatinine 2.1 H Glucose 123 H POC Glucose Lactic Acid 2.40 H* Calcium 10.6 H Magnesium Direct Bilirubin 0.4 H AST 109 H Total Creatine Kinase Troponin T NT-Pro-B Natriuret Pep Albumin 3.4 L Triglycerides LDL Cholesterol Direct HDL Cholesterol 12/27/18 12/27/18 12/27/18 03:55 03:55 09:26 WBC 16.7 H RBC RDW Plt Count Seg Neuts % (Manual) 95.0 H Lymphocytes % (Manual) 3.0 L Seg Neutrophils # Man 15.9 H Lymphocytes # (Manual) 0.5 L PT INR APTT Heparin Anti-Xa Level Sodium 147 H Potassium 3.0 L Chloride Carbon Dioxide BUN 53 H Creatinine 1.8 H Glucose POC Glucose Lactic Acid Calcium Magnesium Direct Bilirubin AST Total Creatine Kinase 248 H 233 H Troponin T NT-Pro-B Natriuret Pep Albumin Triglycerides LDL Cholesterol Direct HDL Cholesterol 12/27/18 12/27/18 12/27/18 10:37 16:16 18:28 WBC RBC RDW Plt Count Seg Neuts % (Manual) Lymphocytes % (Manual) Seg Neutrophils # Man Lymphocytes # (Manual) PT 15.6 H INR 1.27 H APTT Heparin Anti-Xa Level 0.81 H Sodium Potassium Chloride Carbon Dioxide BUN Creatinine Glucose POC Glucose 42 L Lactic Acid Calcium Magnesium Direct Bilirubin AST Total Creatine Kinase Troponin T NT-Pro-B Natriuret Pep Albumin Triglycerides LDL Cholesterol Direct HDL Cholesterol 12/27/18 12/27/18 12/27/18 18:30 19:34 22:42 WBC RBC RDW Plt Count Seg Neuts % (Manual) Lymphocytes % (Manual) Seg Neutrophils # Man Lymphocytes # (Manual) PT INR APTT Heparin Anti-Xa Level 0.71 H Sodium Potassium Chloride Carbon Dioxide BUN Creatinine Glucose POC Glucose 54 L 119 H Lactic Acid Calcium Magnesium Direct Bilirubin AST Total Creatine Kinase Troponin T NT-Pro-B Natriuret Pep Albumin Triglycerides LDL Cholesterol Direct HDL Cholesterol 12/27/18 12/28/18 12/28/18 23:34 10:30 10:30 WBC RBC 3.64 L RDW 15.3 H Plt Count Seg Neuts % (Manual) Lymphocytes % (Manual) Seg Neutrophils # Man Lymphocytes # (Manual) PT INR APTT Heparin Anti-Xa Level Sodium Potassium Chloride Carbon Dioxide 20 L BUN 34 H Creatinine 1.4 H Glucose POC Glucose 60 L Lactic Acid Calcium Magnesium Direct Bilirubin AST Total Creatine Kinase Troponin T NT-Pro-B Natriuret Pep Albumin Triglycerides LDL Cholesterol Direct HDL Cholesterol 12/29/18 12/29/18 12/29/18 00:49 05:10 05:10 WBC RBC RDW Plt Count 138 L Seg Neuts % (Manual) Lymphocytes % (Manual) Seg Neutrophils # Man Lymphocytes # (Manual) PT INR APTT Heparin Anti-Xa Level Sodium Potassium 2.6 L* D Chloride Carbon Dioxide BUN 31 H Creatinine 1.3 H Glucose POC Glucose Lactic Acid Calcium 10.3 H Magnesium 1.60 L Direct Bilirubin AST Total Creatine Kinase Troponin T NT-Pro-B Natriuret Pep Albumin Triglycerides LDL Cholesterol Direct HDL Cholesterol 12/29/18 12/29/18 12/29/18 06:47 11:26 14:28 WBC RBC RDW Plt Count Seg Neuts % (Manual) Lymphocytes % (Manual) Seg Neutrophils # Man Lymphocytes # (Manual) PT INR APTT Heparin Anti-Xa Level 0.23 L Sodium Potassium 2.9 L* Chloride Carbon Dioxide BUN Creatinine Glucose POC Glucose 150 H Lactic Acid Calcium Magnesium Direct Bilirubin AST Total Creatine Kinase Troponin T NT-Pro-B Natriuret Pep Albumin Triglycerides LDL Cholesterol Direct HDL Cholesterol 12/29/18 12/30/18 12/30/18 20:26 00:34 03:35 WBC RBC RDW Plt Count Seg Neuts % (Manual) Lymphocytes % (Manual) Seg Neutrophils # Man Lymphocytes # (Manual) PT INR APTT Heparin Anti-Xa Level Sodium Potassium 3.4 L Chloride Carbon Dioxide BUN 25 H Creatinine Glucose 131 H POC Glucose 123 H 133 H Lactic Acid Calcium Magnesium Direct Bilirubin AST Total Creatine Kinase Troponin T NT-Pro-B Natriuret Pep Albumin Triglycerides LDL Cholesterol Direct HDL Cholesterol 12/30/18 12/30/18 12/30/18 05:50 09:24 16:39 WBC RBC RDW Plt Count Seg Neuts % (Manual) Lymphocytes % (Manual) Seg Neutrophils # Man Lymphocytes # (Manual) PT INR APTT Heparin Anti-Xa Level Sodium Potassium Chloride Carbon Dioxide BUN Creatinine Glucose POC Glucose 157 H 169 H 138 H Lactic Acid Calcium Magnesium Direct Bilirubin AST Total Creatine Kinase Troponin T NT-Pro-B Natriuret Pep Albumin Triglycerides LDL Cholesterol Direct HDL Cholesterol 12/31/18 12/31/18 12/31/18 01:07 05:36 08:00 WBC RBC RDW Plt Count Seg Neuts % (Manual) Lymphocytes % (Manual) Seg Neutrophils # Man Lymphocytes # (Manual) PT INR APTT Heparin Anti-Xa Level Sodium Potassium Chloride Carbon Dioxide BUN Creatinine Glucose POC Glucose 131 H 133 H 147 H Lactic Acid Calcium Magnesium Direct Bilirubin AST Total Creatine Kinase Troponin T NT-Pro-B Natriuret Pep Albumin Triglycerides LDL Cholesterol Direct HDL Cholesterol 12/31/18 01/01/19 01/01/19 08:23 09:24 11:24 WBC RBC RDW Plt Count Seg Neuts % (Manual) Lymphocytes % (Manual) Seg Neutrophils # Man Lymphocytes # (Manual) PT INR APTT Heparin Anti-Xa Level Sodium Potassium Chloride 107.2 H Carbon Dioxide BUN Creatinine Glucose 122 H POC Glucose 159 H Lactic Acid Calcium Magnesium 1.60 L Direct Bilirubin AST Total Creatine Kinase Troponin T NT-Pro-B Natriuret Pep Albumin Triglycerides LDL Cholesterol Direct HDL Cholesterol Chest x-ray: report reviewed (Improving right lower lobe infiltrate.), image reviewed Allied health notes reviewed: nursing
--- NOTE | 2019-01-01 16:17 | Progress Note ---
Assessment and Plan Assessment and plan: --Dysphagia/metabolic encephalopathy speech and swallow evaluated recommend pure diet DC Dobbhoff, aspiration precautions, pured diet as tolerated --Hypokalemia: Corrected --Hypomagnessemia: Mag sulf IV, follow electrolytes --RLL pneumonia, possible aspiration No evidence of clinical evidence of respiratory compromise. s/p 5 days of Rocephin and Zithromax, nebs as needed.f/u cultures --Possible Sepsis / recent UTI /aspiration PNA presented with Leukocytosis. T Max 104.9 thus far. Received 5 days of Rocephin, follow cx Symptoms improved --Paroxysmal atrial fibrillation with RVR : New onset,Currently in SR, Off amio gtt. Cont PO lopressor and titrate as tolerated. heparin gtt.discontinued, patient not a candidate for chronic anticoagulation Due to advanced age and recurrent falls, cardiology recommended aspirin 162 mg daily Echo reviewed - EF 50-55%, abnormal diastolic function. Thyroid profile WNL. --ROSEMARIE : vasomotor nephropathy, Resolved, avoid nephrotoxins --Hypertension: Stable --Dementia supportive care, s/p speech/swallow evaln Cleared for pured diet with thickened liquids --Advanced age with debility PT eval when medically more stable --DVT prophylaxis:Heparin drip. DC planning. Case management; possible home with home health [facility] stable Plan of care reviwed with the patient's nurse History Interval history: Patient seen and examined and Medical Records Reviewed No events reported by the nursing Confused requiring restraints at times Vital signs noted Hospitalist Physical - Constitutional Vitals: Temp Pulse Resp BP Pulse Ox 98.4 F 75 18 101/65 100 01/01/19 11:19 01/01/19 11:19 01/01/19 11:19 01/01/19 11:19 01/01/19 11:19 General appearance: Present: no acute distress, well-nourished, other (confused) - EENT Eyes: Present: PERRL, EOM intact - Neck Neck: Present: supple, normal ROM - Respiratory Respiratory effort: normal Respiratory: bilateral: diminished, negative: rales, rhonchi, wheezing - Cardiovascular Rhythm: regular Heart Sounds: Present: S1 & S2 - Extremities Extremities: no ischemia, No edema - Abdominal General gastrointestinal: soft, non-tender, non-distended, normal bowel sounds - Integumentary Integumentary: Present: clear, warm - Psychiatric Psychiatric: appropriate mood/affect, cooperative - Neurologic Neurologic: CNII-XII intact, moves all extremities Results - Labs CBC & Chem 7: 12/29/18 05:10 01/01/19 09:24 Labs: Laboratory Last Values WBC 8.7 K/mm3 (4.5-11.0) 12/28/18 10:30 RBC 3.64 M/mm3 (3.65-5.03) L 12/28/18 10:30 Hgb 10.5 gm/dl (10.1-14.3) 12/29/18 05:10 Hct 32.2 % (30.3-42.9) 12/29/18 05:10 MCV 89 fl (79-97) 12/28/18 10:30 MCH 29 pg (28-32) 12/28/18 10:30 MCHC 33 % (30-34) 12/28/18 10:30 RDW 15.3 % (13.2-15.2) H 12/28/18 10:30 Plt Count 138 K/mm3 (140-440) L 12/29/18 05:10 Add Manual Diff Complete 12/27/18 03:55 Total Counted 100 12/27/18 03:55 Seg Neutrophils % [place] 12/27/18 03:55 Seg Neuts % (Manual) 95.0 % (40.0-70.0) H 12/27/18 03:55 Band Neutrophils % 0 % 12/27/18 03:55 Lymphocytes % (Manual) 3.0 % (13.4-35.0) L 12/27/18 03:55 Reactive Lymphs % (Man) 0 % 12/27/18 03:55 Monocytes % (Manual) 2.0 % (0.0-7.3) 12/27/18 03:55 Eosinophils % (Manual) 0 % (0.0-4.3) 12/27/18 03:55 Basophils % (Manual) 0 % (0.0-1.8) 12/27/18 03:55 Metamyelocytes % 0 % 12/27/18 03:55 Myelocytes % 0 % 12/27/18 03:55 Promyelocytes % 0 % 12/27/18 03:55 Blast Cells % 0 % 12/27/18 03:55 Nucleated RBC % Not Reportable 12/27/18 03:55 Seg Neutrophils # Man 15.9 K/mm3 (1.8-7.7) H 12/27/18 03:55 Band Neutrophils # 0.0 K/mm3 12/27/18 03:55 Lymphocytes # (Manual) 0.5 K/mm3 (1.2-5.4) L 12/27/18 03:55 Abs React Lymphs (Man) 0.0 K/mm3 12/27/18 03:55 Monocytes # (Manual) 0.3 K/mm3 (0.0-0.8) 12/27/18 03:55 Eosinophils # (Manual) 0.0 K/mm3 (0.0-0.4) 12/27/18 03:55 Basophils # (Manual) 0.0 K/mm3 (0.0-0.1) 12/27/18 03:55 Metamyelocytes # 0.0 K/mm3 12/27/18 03:55 Myelocytes # 0.0 K/mm3 12/27/18 03:55 Promyelocytes # 0.0 K/mm3 12/27/18 03:55 Blast Cells # 0.0 K/mm3 12/27/18 03:55 WBC Morphology Not Reportable 12/27/18 03:55 Hypersegmented Neuts Not Reportable 12/27/18 03:55 Hyposegmented Neuts Not Reportable 12/27/18 03:55 Hypogranular Neuts Not Reportable 12/27/18 03:55 Smudge Cells Not Reportable 12/27/18 03:55 Toxic Granulation Not Reportable 12/27/18 03:55 Toxic Vacuolation Not Reportable 12/27/18 03:55 Dohle Bodies Not Reportable 12/27/18 03:55 Pelger-Huet Anomaly Not Reportable 12/27/18 03:55 Rossana Rods Not Reportable 12/27/18 03:55 Platelet Estimate Consistent w auto 12/27/18 03:55 Clumped Platelets Not Reportable 12/27/18 03:55 Plt Clumps, EDTA Not Reportable 12/27/18 03:55 Large Platelets 1+ 12/27/18 03:55 Giant Platelets Not Reportable 12/27/18 03:55 Platelet Satelliting Not Reportable 12/27/18 03:55 Plt Morphology Comment Not Reportable 12/27/18 03:55 RBC Morphology Not Reportable 12/27/18 03:55 Dimorphic RBCs Not Reportable 12/27/18 03:55 Polychromasia Not Reportable 12/27/18 03:55 Hypochromasia Not Reportable 12/27/18 03:55 Poikilocytosis Not Reportable 12/27/18 03:55 Anisocytosis Few 12/27/18 03:55 Microcytosis Rare 12/27/18 03:55 Macrocytosis Not Reportable 12/27/18 03:55 Spherocytes Not Reportable 12/27/18 03:55 Pappenheimer Bodies Not Reportable 12/27/18 03:55 Sickle Cells Not Reportable 12/27/18 03:55 Target Cells Not Reportable 12/27/18 03:55 Tear Drop Cells Not Reportable 12/27/18 03:55 Ovalocytes Few 12/27/18 03:55 Helmet Cells Not Reportable 12/27/18 03:55 [place] Bodies Not Reportable 12/27/18 03:55 [place] Rings Not Reportable 12/27/18 03:55 [place] Cells Not Reportable 12/27/18 03:55 Bite Cells Not Reportable 12/27/18 03:55 Crenated Cell Not Reportable 12/27/18 03:55 Elliptocytes Rare 12/27/18 03:55 Acanthocytes (Spur) Not Reportable 12/27/18 03:55 Rouleaux Not Reportable 12/27/18 03:55 Hemoglobin C Crystals Not Reportable 12/27/18 03:55 Schistocytes Not Reportable 12/27/18 03:55 Malaria parasites Not Reportable 12/27/18 03:55 Júnior Bodies Not Reportable 12/27/18 03:55 Hem Pathologist Commnt No 12/27/18 03:55 PT 15.6 Sec. (12.2-14.9) H 12/27/18 10:37 INR 1.27 (0.87-1.13) H 12/27/18 10:37 APTT 32.0 Sec. (24.2-36.6) 12/27/18 10:37 Heparin Anti-Xa Level 0.32 U.I./ml (0.3-0.7) 12/29/18 19:55 Sodium 141 mmol/L (137-145) 01/01/19 09:24 Potassium 4.6 mmol/L (3.6-5.0) 01/01/19 09:24 Chloride 107.2 mmol/L (98-107) H 01/01/19 09:24 Carbon Dioxide 24 mmol/L (22-30) 01/01/19 09:24 Anion Gap 14 mmol/L 01/01/19 09:24 BUN 16 mg/dL (7-17) 01/01/19 09:24 Creatinine 0.9 mg/dL (0.7-1.2) 01/01/19 09:24 Estimated GFR > 60 ml/min 01/01/19 09:24 BUN/Creatinine Ratio 18 % 01/01/19 09:24 Glucose 122 mg/dL (65-100) H 01/01/19 09:24 POC Glucose 159 (70-105) H 01/01/19 11:24 Lactic Acid 1.90 mmol/L (0.7-2.0) 12/27/18 02:27 Calcium 9.3 mg/dL (8.4-10.2) 01/01/19 09:24 Phosphorus 2.50 mg/dL (2.5-4.5) 12/27/18 03:55 Magnesium 2.00 mg/dL (1.7-2.3) 01/01/19 06:13 Total Bilirubin 0.60 mg/dL (0.1-1.2) 12/26/18 23:00 Direct Bilirubin 0.4 mg/dL (0-0.2) H 12/26/18 23:00 Indirect Bilirubin 0.2 mg/dL 12/26/18 23:00 AST 109 units/L (5-40) H 12/26/18 23:00 ALT 35 units/L (7-56) 12/26/18 23:00 Alkaline Phosphatase 84 units/L (35-129) 12/26/18 23:00 Total Creatine Kinase 233 units/L (30-135) H 12/27/18 09:26 CK-MB (CK-2) 2.2 ng/mL (0.0-4.0) 12/27/18 09:26 CK-MB (CK-2) Rel Index 0.9 (0-4) 12/27/18 09:26 Troponin T 0.022 ng/mL (0.00-0.029) 12/27/18 09:26 NT-Pro-B Natriuret Pep 1809 pg/mL (0-900) H 12/26/18 22:44 Total Protein 6.7 g/dL (6.3-8.2) 12/26/18 23:00 Albumin 3.4 g/dL (3.9-5) L 12/26/18 23:00 Albumin/Globulin Ratio 1.0 % 12/26/18 23:00 Triglycerides 201 mg/dL (2-149) H 12/26/18 22:44 Cholesterol 137 mg/dL (50-199) 12/26/18 22:44 LDL Cholesterol Direct 46 mg/dL (50-130) L 12/26/18 22:44 HDL Cholesterol 31 mg/dL (40-59) L 12/26/18 22:44 Cholesterol/HDL Ratio 4.41 % 12/26/18 22:44 TSH 0.391 mlU/mL (0.270-4.200) 12/27/18 10:37 Free T4 0.86 ng/dL (0.76-1.46) 12/27/18 10:37 Active Medications - Current Medications Current Medications: Generic Name Dose Route Start Last Admin Trade Name Freq PRN Reason Stop Dose Admin Acetaminophen 650 mg 12/27/18 03:43 Tylenol KS Q4H PRN Pain MILD(1-3)/Fever >100.5/DUNBAR Albuterol 2.5 mg 12/28/18 12:11 Proventil IH Q6HRT PRN Shortness Of Breath Lipase/Protease/Amylase 1 each 12/27/18 13:47 Pancreaze 10,500 Unit FEEDTUBE PRN PRN For Clogged Feeding Tube Aspirin 162 mg 12/30/18 10:00 01/01/19 10:53 Baby Aspirin PO 162 mg QDAY ROBERTO Administration Dextrose 50 ml 12/27/18 03:53 12/27/18 23:40 D50w (25gm) Syringe IV 50 ml PRN PRN Administration Hypoglycemia Enoxaparin Sodium 30 mg 12/30/18 10:00 01/01/19 10:57 Lovenox SUB-Q 30 mg QDAY ROBERTO Administration Famotidine 20 mg 12/28/18 13:00 01/01/19 10:53 Pepcid PO 20 mg DAILY ROBERTO Administration Dextrose/Sodium Chloride 1,000 mls @ 75 mls/hr 12/27/18 04:00 12/31/18 22:20 D5/0.45ns IV 75 mls/hr DIRECT ROBERTO Administration Lidocaine 1 each 12/27/18 12:00 01/01/19 11:32 Lidoderm 5% TD 1 each QDAY ROBERTO Administration Metoprolol Tartrate 25 mg 12/27/18 14:00 01/01/19 10:54 Lopressor PO 25 mg TID ROBERTO Administration Morphine Sulfate 2 mg 12/27/18 11:26 01/01/19 10:52 Morphine IV 2 mg Q3H PRN Administration Pain, Moderate (4-6) Ondansetron HCl 4 mg 12/27/18 03:43 Zofran IV Q4H PRN Nausea And Vomiting Potassium Chloride 40 meq 12/29/18 18:00 01/01/19 10:52 Potassium Chloride FEEDTUBE 40 meq QDAY ROBERTO Administration Sertraline HCl 100 mg 12/28/18 10:00 01/01/19 10:53 Zoloft PO 100 mg QDAY ROBERTO Administration Simple Syrup 15 ml 12/27/18 13:47 Simple Syrup FEEDTUBE PRN PRN Hypoglycemia Simple Syrup 30 ml 12/27/18 13:47 Simple Syrup FEEDTUBE PRN PRN Hypoglycemia Sodium Bicarbonate 325 mg 12/27/18 13:47 Sodium Bicarbonate FEEDTUBE PRN PRN For Clogged Feeding Tube Sodium Chloride 10 ml 12/27/18 10:00 01/01/19 10:59 Sodium Chloride Flush Syringe 10 Ml IV 10 ml BID ROBERTO Administration Sodium Chloride 10 ml 12/27/18 03:43 Sodium Chloride Flush Syringe 10 Ml IV PRN PRN LINE FLUSH Tramadol HCl 50 mg 12/27/18 20:00 01/01/19 10:53 Ultram PO 50 mg TID ROBERTO Administration Nutrition/Malnutrition Assess - Dietary Evaluation Nutrition/Malnutrition Findings: Nutrition Notes Start: 12/27/18 10:22 Freq: Status: Active Protocol: Document 01/01/19 12:54 RM (Rec: 01/01/19 12:59 RM [id number]) Nutrition Notes Initial or Follow up Reassessment Current Diagnosis Acute Kidney Injury,Diabetes, Hypertension Other Pertinent Diagnosis Dementia, pneumonia, dysphagia , metabolic encephalopathy Current Diet Pureed Labs/Tests Reviewed Pertinent Medications Reviewed Height 5 ft 1 in Weight 70 kg [place] Body Weight (kg) 47.72 BMI 29.1 Weight change and time frame Current wt obtained from [facility]. Noted wt increase. Possibly d/t human error. Subjective/Other Information TF D/C'd and diet advanced to pureed per ST recommendation. Per tech pt ate 75% of breakfast with encouragement. Percent of energy/protein needs met: 100%/92% Burn Absent Trauma Absent Minimum of two criteria No #1 Nutrition Diagnosis Inadequate oral intake As Evidenced by Signs and Symptoms pt tech statement that pt ate 75% of breakfast Diagnosis Progress(for reassessment Improved documentation) Is patient on ventilator? No Is Patient Ambulatory and/or Out of Bed No REE-([place]-St. Jeor-confined to bed) 1294.368 Kcal/Kg value to use for calculation 19 Approximate Energy Requirements Using 1330 kcal/Kg Calculation Used for Recommendations Kcal/kg Additional Notes Protein needs: 62g-74g/kg (1g- 1.2g/kg) Fluid needs: 1ml/kg Needs adjusted according to previous wt Nutrition Intervention Change Diet Order: Continue current Nutrition Support: D/C'd Goal #1 Continue to meet at least 75% of calorie and protein needs via PO intakes Anticipated Discharge Needs: Pureed diet Follow-Up By: 01/04/19 Additional Comments Follow for stable PO intakes
[2019-01-01] MEDS: D5W/0.45% NACL 1,000 ML IV SCH (22:20)
[2019-01-02] MEDS: MORPHINE 2 MG/1 ML INJ IV PRN (01:28)
[2019-01-02] MEDS: LIDOCAINE 5% 1 EACH PATCH TD SCH (11:37)
[2019-01-02] MEDS: METOPROLOL TARTRATE 25 MG TAB PO SCH (11:38)
[2019-01-02] MEDS: ASPIRIN 81 MG TAB CHEW PO SCH (11:38)
[2019-01-02] MEDS: SERTRALINE 100 MG TAB PO SCH (11:38)
[2019-01-02] MEDS: FAMOTIDINE 20 MG TAB PO SCH (11:38)
[2019-01-02] MEDS: traMADol 50 MG TAB PO SCH (11:39)
[2019-01-02] MEDS: POTASSIUM CHLORIDE 20 MEQ PACKET FEEDTUBE SCH (11:40)
[2019-01-02] MEDS: ENOXAPARIN 30 MG/0.3 ML INJ SUB-Q SCH (11:40)
--- NOTE | 2019-01-02 13:17 | Discharge Summary ---
Providers - Providers Date of Admission: 12/27/18 05:26 Date of discharge: 01/02/19 Attending physician: QUITA ANDERSEN 12/27/18 03:55 Consult to Physician [CONS] Routine Comment: Consulting Provider: TIFF RODRIGUEZ Physician Instructions: Reason For Exam: cc 12/27/18 04:18 Speech Therapy Evaluation and Treat [CONS] Routine Reason For Exam: swallow eval 12/27/18 12:59 Consult to Dietitian/Nutrition [CONS] Routine Physician Instructions: Reason For Exam: Trickle feed: tube feeding Reason for Consult: Write/Manage Tube Feeding 12/29/18 07:58 Physical Therapy Evaluation and Treat [CONS] Routine Comment: Reason For Exam: weakness 12/30/18 12:32 Speech Therapy Evaluation and Treat [CONS] Routine Reason For Exam: dysphagia/dementia Primary care physician: DELORES BRUNO Hospitalization Reason for admission: Failure to thrive,Dysphagia/poor oral intake Condition: Fair Pertinent studies: ct chest renal US Echo Hospital course: 88 -year-old woman with a history of hypertension, diabetes, dementia was brought to the emergency room because for the last 2 weeks she has become weak decrease oral intake and less responsive per the daughter. Patent was evaluated by speech therapst,adv puree diet,managed pneumona with antibiotics. Patients symptoms improved,today patient is comfortable,no new complaints,vital signs stable. [facility] Discharge Diagnosis: --Dysphagia speech and swallow evaluated recommend pure diet DC Dobbhoff, aspiration precautions, pured diet as tolerated --Hypokalemia: Corrected --Hypomagnessemia: Mag sulf IV, follow electrolytes --RLL pneumonia, possible aspiration No evidence of clinical evidence of respiratory compromise. s/p 5 days of Rocephin and Zithromax, nebs as needed.f/u cultures --Possible Sepsis / recent UTI /aspiration PNA presented with Leukocytosis. T Max 104.9 thus far. Received 5 days of Rocephin, follow cx Symptoms improved --Paroxysmal atrial fibrillation with RVR : New onset,Currently in SR, Off amio gtt. Cont PO lopressor and titrate as tolerated. heparin gtt.discontinued, patient not a candidate for chronic anticoagulation Due to advanced age and recurrent falls, cardiology recommended aspirin 162 mg daily Echo reviewed - EF 50-55%, abnormal diastolic function. Thyroid profile WNL. --ROSEMARIE : vasomotor nephropathy, Resolved, avoid nephrotoxins --Hypertension: Stable --Dementia//metabolic encephalopathy supportive care, s/p speech/swallow evaln Cleared for pured diet with thickened liquids --Advanced age with debility PT eval when medically more stable --DVT prophylaxis:Heparin drip. DC home with home health . Stable at discharge Disposition: DC/[place]-06 HOME UNDER [facility] Time spent for discharge: 32 min Core Measure Documentation - Palliative Care Palliative Care/ Comfort Measures: Not Applicable - Core Measures Any of the following diagnoses?: none Exam - Constitutional Vitals: Temp Pulse Resp BP Pulse Ox 98.5 F 62 18 133/63 100 01/02/19 07:36 01/02/19 07:36 01/02/19 07:36 01/02/19 07:36 01/02/19 08:19 General appearance: Present: no acute distress, well-nourished - EENT Eyes: Present: PERRL, EOM intact - Neck Neck: Present: supple, normal ROM - Respiratory Respiratory effort: normal Respiratory: bilateral: diminished, negative: rales, rhonchi, wheezing - Cardiovascular Rhythm: regular Heart Sounds: Present: S1 & S2 - Extremities Extremities: no ischemia, No edema - Abdominal General gastrointestinal: Present: soft, non-tender, non-distended, normal bowel sounds - Integumentary Integumentary: Present: clear, warm - Musculoskeletal Musculoskeletal: strength equal bilaterally, generalized weakness - Psychiatric Psychiatric: appropriate mood/affect, cooperative - Neurologic Neurologic: CNII-XII intact, moves all extremities Plan Activity: advance as tolerated, fall precautions Diet: advance as tolerated, other (puree diet ) Special Instructions: physical therapy (Home physical therapy) Durable Medical Equipment Needed Upon Discharge: Walker-Rolling Additional Instructions: Fall Precautions. Aspiration precautions Follow up with: DELORES BRUNO MD [Primary Care Provider] - 7 Days MONA SARAVIA MD [Staff Physician] - 7 Days MERI LOPEZ MD [Staff Physician] - 7 Days Prescriptions: Aspirin [Aspirin BABY CHEW TAB] 162 mg PO QDAY #30 tab.chew Metoprolol [Lopressor TAB] 25 mg PO TID #90 tablet Famotidine [Pepcid] 20 mg PO DAILY #30 tablet Potassium Chloride 20 meq FEEDTUBE QDAY #30 packet
--- NOTE | 2019-01-02 17:27 | Progress Note ---
Assessment and Plan Patient awake and resting on room air. No acute respiratory distress. O2 saturation 100%. Patients chest xray reported improving right lower lobe infiltrate. Patient afebrile. Leukocyte count came down. Patient discharged. Recommend to come to my office in 1 week for follow up on pneumonia. Stressed the importance of follow up. - Patient Problems (1) Right lower lobe pneumonia Current Visit: Yes Status: Acute Plan to address problem: Patient is on Zithromax and Ceftrioxone. (2) Dementia Current Visit: Yes Status: Acute Plan to address problem: Management as per primary care. Subjective Date of service: 01/02/19 Principal diagnosis: Sepsis; RLL PNA; Acute encephalopathy; A-Fib with RVR ROSEMARIE; Hypokalemia Interval history: Patient awake and resting on room air. No acute respiratory distress. O2 saturation 100%. Patients chest xray reported improving right lower lobe infiltrate. Patient afebrile. Leukocyte count came down. Patient discharged. Recommend to come to my office in 1 week for follow up on pneumonia. Stressed the importance of follow up. Objective Vital Signs - 12hr 01/02/19 01/02/19 07:36 08:19 Temperature 98.5 F Pulse Rate 62 Respiratory 18 Rate Blood Pressure 133/63 O2 Sat by Pulse 100 100 Oximetry Constitutional: no acute distress, alert Eyes: non-icteric ENT: oropharynx moist, oropharyngeal exudate pre Neck: supple, no JVD Effort: mildly labored Ascultation: Right: rhonchi (Right base.), Bilateral: diminished breath sounds (base) Percussion: Bilateral: not dull Cardiovascular: regular rate and rhythm Gastrointestinal: normoactive bowel sounds, soft, non-tender, non-distended Extremities: no cyanosis, no edema, pulses normal, no ischemia or petechiae Neurologic: non-focal exam (grossly), pupils equal and round, CN II-XII normal, other (insonsistently following prompt's) Psychiatric: anxious, other CBC and BMP: 12/29/18 05:10 01/01/19 09:24 ABG, PT/INR, D-dimer: PT/INR, D-dimer PT 15.6 Sec. (12.2-14.9) H 12/27/18 10:37 INR 1.27 (0.87-1.13) H 12/27/18 10:37 Abnormal lab findings: Abnormal Labs 12/26/18 12/26/18 12/26/18 22:44 22:44 22:44 WBC 20.5 H RBC RDW Plt Count Seg Neuts % (Manual) 95.0 H Lymphocytes % (Manual) 4.0 L Seg Neutrophils # Man 19.5 H Lymphocytes # (Manual) 0.8 L PT 15.5 H INR 1.26 H APTT 41.0 H Heparin Anti-Xa Level Sodium Potassium 3.0 L Chloride Carbon Dioxide BUN 58 H Creatinine 2.0 H Glucose 120 H POC Glucose Lactic Acid Calcium 11.3 H Magnesium Direct Bilirubin AST Total Creatine Kinase Troponin T NT-Pro-B Natriuret Pep 1809 H Albumin Triglycerides LDL Cholesterol Direct HDL Cholesterol 12/26/18 12/26/18 12/26/18 22:44 22:44 22:44 WBC RBC RDW Plt Count Seg Neuts % (Manual) Lymphocytes % (Manual) Seg Neutrophils # Man Lymphocytes # (Manual) PT INR APTT Heparin Anti-Xa Level Sodium Potassium Chloride Carbon Dioxide BUN Creatinine Glucose POC Glucose Lactic Acid 2.30 H* Calcium 11.1 H Magnesium Direct Bilirubin AST Total Creatine Kinase Troponin T 0.037 H NT-Pro-B Natriuret Pep Albumin Triglycerides 201 H LDL Cholesterol Direct 46 L HDL Cholesterol 31 L 12/26/18 12/26/18 12/27/18 23:00 23:50 00:22 WBC RBC RDW Plt Count Seg Neuts % (Manual) Lymphocytes % (Manual) Seg Neutrophils # Man Lymphocytes # (Manual) PT INR APTT Heparin Anti-Xa Level Sodium 147 H Potassium 2.9 L* Chloride Carbon Dioxide BUN 58 H Creatinine 2.1 H Glucose 123 H POC Glucose Lactic Acid 2.40 H* Calcium 10.6 H Magnesium Direct Bilirubin 0.4 H AST 109 H Total Creatine Kinase Troponin T NT-Pro-B Natriuret Pep Albumin 3.4 L Triglycerides LDL Cholesterol Direct HDL Cholesterol 12/27/18 12/27/18 12/27/18 03:55 03:55 09:26 WBC 16.7 H RBC RDW Plt Count Seg Neuts % (Manual) 95.0 H Lymphocytes % (Manual) 3.0 L Seg Neutrophils # Man 15.9 H Lymphocytes # (Manual) 0.5 L PT INR APTT Heparin Anti-Xa Level Sodium 147 H Potassium 3.0 L Chloride Carbon Dioxide BUN 53 H Creatinine 1.8 H Glucose POC Glucose Lactic Acid Calcium Magnesium Direct Bilirubin AST Total Creatine Kinase 248 H 233 H Troponin T NT-Pro-B Natriuret Pep Albumin Triglycerides LDL Cholesterol Direct HDL Cholesterol 12/27/18 12/27/18 12/27/18 10:37 16:16 18:28 WBC RBC RDW Plt Count Seg Neuts % (Manual) Lymphocytes % (Manual) Seg Neutrophils # Man Lymphocytes # (Manual) PT 15.6 H INR 1.27 H APTT Heparin Anti-Xa Level 0.81 H Sodium Potassium Chloride Carbon Dioxide BUN Creatinine Glucose POC Glucose 42 L Lactic Acid Calcium Magnesium Direct Bilirubin AST Total Creatine Kinase Troponin T NT-Pro-B Natriuret Pep Albumin Triglycerides LDL Cholesterol Direct HDL Cholesterol 12/27/18 12/27/18 12/27/18 18:30 19:34 22:42 WBC RBC RDW Plt Count Seg Neuts % (Manual) Lymphocytes % (Manual) Seg Neutrophils # Man Lymphocytes # (Manual) PT INR APTT Heparin Anti-Xa Level 0.71 H Sodium Potassium Chloride Carbon Dioxide BUN Creatinine Glucose POC Glucose 54 L 119 H Lactic Acid Calcium Magnesium Direct Bilirubin AST Total Creatine Kinase Troponin T NT-Pro-B Natriuret Pep Albumin Triglycerides LDL Cholesterol Direct HDL Cholesterol 12/27/18 12/28/18 12/28/18 23:34 10:30 10:30 WBC RBC 3.64 L RDW 15.3 H Plt Count Seg Neuts % (Manual) Lymphocytes % (Manual) Seg Neutrophils # Man Lymphocytes # (Manual) PT INR APTT Heparin Anti-Xa Level Sodium Potassium Chloride Carbon Dioxide 20 L BUN 34 H Creatinine 1.4 H Glucose POC Glucose 60 L Lactic Acid Calcium Magnesium Direct Bilirubin AST Total Creatine Kinase Troponin T NT-Pro-B Natriuret Pep Albumin Triglycerides LDL Cholesterol Direct HDL Cholesterol 12/29/18 12/29/18 12/29/18 00:49 05:10 05:10 WBC RBC RDW Plt Count 138 L Seg Neuts % (Manual) Lymphocytes % (Manual) Seg Neutrophils # Man Lymphocytes # (Manual) PT INR APTT Heparin Anti-Xa Level Sodium Potassium 2.6 L* D Chloride Carbon Dioxide BUN 31 H Creatinine 1.3 H Glucose POC Glucose Lactic Acid Calcium 10.3 H Magnesium 1.60 L Direct Bilirubin AST Total Creatine Kinase Troponin T NT-Pro-B Natriuret Pep Albumin Triglycerides LDL Cholesterol Direct HDL Cholesterol 12/29/18 12/29/1812/29/19 06:47 11:26 14:28 WBC RBC RDW Plt Count Seg Neuts % (Manual) Lymphocytes % (Manual) Seg Neutrophils # Man Lymphocytes # (Manual) PT INR APTT Heparin Anti-Xa Level 0.23 L Sodium Potassium 2.9 L* Chloride Carbon Dioxide BUN Creatinine Glucose POC Glucose 150 H Lactic Acid Calcium Magnesium Direct Bilirubin AST Total Creatine Kinase Troponin T NT-Pro-B Natriuret Pep Albumin Triglycerides LDL Cholesterol Direct HDL Cholesterol 12/29/18 12/30/18 12/30/18 20:26 00:34 03:35 WBC RBC RDW Plt Count Seg Neuts % (Manual) Lymphocytes % (Manual) Seg Neutrophils # Man Lymphocytes # (Manual) PT INR APTT Heparin Anti-Xa Level Sodium Potassium 3.4 L Chloride Carbon Dioxide BUN 25 H Creatinine Glucose 131 H POC Glucose 123 H 133 H Lactic Acid Calcium Magnesium Direct Bilirubin AST Total Creatine Kinase Troponin T NT-Pro-B Natriuret Pep Albumin Triglycerides LDL Cholesterol Direct HDL Cholesterol 12/30/18 12/30/18 12/30/18 05:50 09:24 16:39 WBC RBC RDW Plt Count Seg Neuts % (Manual) Lymphocytes % (Manual) Seg Neutrophils # Man Lymphocytes # (Manual) PT INR APTT Heparin Anti-Xa Level Sodium Potassium Chloride Carbon Dioxide BUN Creatinine Glucose POC Glucose 157 H 169 H 138 H Lactic Acid Calcium Magnesium Direct Bilirubin AST Total Creatine Kinase Troponin T NT-Pro-B Natriuret Pep Albumin Triglycerides LDL Cholesterol Direct HDL Cholesterol 12/31/18 12/31/18 12/31/18 01:07 05:36 08:00 WBC RBC RDW Plt Count Seg Neuts % (Manual) Lymphocytes % (Manual) Seg Neutrophils # Man Lymphocytes # (Manual) PT INR APTT Heparin Anti-Xa Level Sodium Potassium Chloride Carbon Dioxide BUN Creatinine Glucose POC Glucose 131 H 133 H 147 H Lactic Acid Calcium Magnesium Direct Bilirubin AST Total Creatine Kinase Troponin T NT-Pro-B Natriuret Pep Albumin Triglycerides LDL Cholesterol Direct HDL Cholesterol 12/31/18 01/01/19 01/01/19 08:23 09:24 11:24 WBC RBC RDW Plt Count Seg Neuts % (Manual) Lymphocytes % (Manual) Seg Neutrophils # Man Lymphocytes # (Manual) PT INR APTT Heparin Anti-Xa Level Sodium Potassium Chloride 107.2 H Carbon Dioxide BUN Creatinine Glucose 122 H POC Glucose 159 H Lactic Acid Calcium Magnesium 1.60 L Direct Bilirubin AST Total Creatine Kinase Troponin T NT-Pro-B Natriuret Pep Albumin Triglycerides LDL Cholesterol Direct HDL Cholesterol 01/01/19 01/02/19 17:43 11:16 WBC RBC RDW Plt Count Seg Neuts % (Manual) Lymphocytes % (Manual) Seg Neutrophils # Man Lymphocytes # (Manual) PT INR APTT Heparin Anti-Xa Level Sodium Potassium Chloride Carbon Dioxide BUN Creatinine Glucose POC Glucose 122 H 120 H Lactic Acid Calcium Magnesium Direct Bilirubin AST Total Creatine Kinase Troponin T NT-Pro-B Natriuret Pep Albumin Triglycerides LDL Cholesterol Direct HDL Cholesterol Allied health notes reviewed: nursing
[2019-01-02 18:19] VITALS: BP 144/75
== END 2019-01-02 18:20 | disposition home health service (06) | DRG 871 ==
LOC: ED 21:53 → CC1 12-27 05:26 → EDBD 12-27 05:26 → 4A 12-28 16:02
PROVIDERS: ADMIT Internal Medicine; ATTEND Internal Medicine
DX: A41.9 Sepsis, unspecified organism (principal); J69.0 Pneumonitis due to inhalation of food and vomit; G92 Toxic encephalopathy; N17.0 Acute kidney failure with tubular necrosis; E87.0 Hyperosmolality and hypernatremia; E87.6 Hypokalemia; I10 Essential (primary) hypertension; F03.90 Unspecified dementia, unspecified severity, without behavioral disturbance, psychotic disturbance, mood disturbance, and anxiety; I48.0 Paroxysmal atrial fibrillation; E11.9 Type 2 diabetes mellitus without complications; E83.42 Hypomagnesemia; I45.10 Unspecified right bundle-branch block; R00.0 Tachycardia, unspecified; Z82.49 Family history of ischemic heart disease and other diseases of the circulatory system; Z83.3 Family history of diabetes mellitus; Z88.1 Allergy status to other antibiotic agents; Z88.8 Allergy status to other drugs, medicaments and biological substances; Z91.018 Allergy to other foods; Z79.51 Long term (current) use of inhaled steroids; Z79.899 Other long term (current) drug therapy; Z79.84 Long term (current) use of oral hypoglycemic drugs
CPT/HCPCS: 36415; 71045; 71046; 71250; 74018; 76770; 80048; 80061; 80076; 82140; 82310; 82550; 82553; 82962; 83735; 83880; 84100; 84132; 84439; 84443; 84484; 85007; 85014; 85018; 85025; 85027; 85049; 85520; 85610; 85730; 87040; 93005; 93010; 93306; 94640; 94760; G0378; J0282; J0456; J0696; J1644; J1650; J2270; J2543; J3475; J3480; J7030; J7050; J7060

== ENCOUNTER 2019-02-05 16:53 | Emergency (ER) | payer MEDICARE ==
[2019-02-05] MEDS ORDERED: HYDROmorphone 1 MG/1 ML INJ IV ONE ×2 (19:01→19:07)
[2019-02-05] MEDS ORDERED: ONDANSETRON 4 MG/2 ML INJ IV ONE ×2 (19:02→19:07)
--- NOTE | 2019-02-05 19:14 | Emergency Department Report ---
HPI - General Chief Complaint: Fall Time Seen by Provider: 02/05/19 18:59 - HPI HPI: Room 5 The patient is an 88-year-old female presenting with a chief complaint of pain after fall. Family states at 16:00 they witnessed the patient reaching for something and then accidentally fall landing on her right side. Family states there was no loss of consciousness. Family states the patient was complaining of right side pain. The patient complains of pain in her right shoulder Location: [See above] Duration: [See above] Quality: [See above] Severity: [See above] Timing: [See above] Context: [See above] Modifying factors: [See above] Associated signs and symptoms: [see above] ED Past Medical Hx - Past Medical History Previous Medical History?: Yes Hx Hypertension: Yes Hx Diabetes: Yes Hx Dementia: Yes - Surgical History Past Surgical History?: No - Family History Family history: no significant - Social History Smoking Status: Never Smoker Substance Use Type: None - Medications Home Medications: Home Medications Medication Instructions Recorded Confirmed Last Taken Type Albuterol Sulfate [Proair 90 mcg IH PRN 12/27/18 12/27/18 Unknown History Respiclick] Fluticasone [Flonase] 250 mcg IH PRN 12/27/18 12/27/18 Unknown History Sertraline [Zoloft] 100 mg PO QDAY 12/27/18 12/27/18 Unknown History traMADol [Ultram 50 MG tab] 50 mg PO TID 12/27/18 12/27/18 Unknown History Aspirin [Aspirin BABY CHEW TAB] 162 mg PO QDAY #30 tab.chew 01/02/19 Unknown Rx Famotidine [Pepcid] 20 mg PO DAILY #30 tablet 01/02/19 Unknown Rx Metoprolol [Lopressor TAB] 25 mg PO TID #90 tablet 01/02/19 Unknown Rx Potassium Chloride 20 meq FEEDTUBE QDAY #30 packet 01/02/19 Unknown Rx HYDROcodone/APAP 5-325 [[place] 1 - 2 each PO Q6HR PRN #20 tablet 02/05/19 Unknown Rx 5/325] Ibuprofen [Motrin 800 MG tab] 800 mg PO Q8HR PRN #20 tablet 02/05/19 Unknown Rx ED Review of Systems ROS: Stated complaint: FALL Other details as noted in HPI Comment: Unobtainable due to pts medical conditions (dementia) Physical Exam - Physical Exam Vital Signs: Vital Signs 02/05/19 18:03 Temperature 97.9 F Pulse Rate 85 Respiratory 14 Rate Blood Pressure 159/83 [Left] O2 Sat by Pulse 98 Oximetry Physical Exam: GENERAL: The patient is well-developed well-nourished female lying on stretcher in the right lateral decubitus position moaning complaining of right shoulder pain. [] HEENT: Normocephalic. Atraumatic. Extraocular motions are intact. Patient has moist mucous membranes. NECK: Supple. Trachea midline CHEST/LUNGS: Clear to auscultation. There is no respiratory distress noted. HEART/CARDIOVASCULAR: Regular. There is no tachycardia. There is no gallop rub or murmur. ABDOMEN: Abdomen is soft, nontender. Patient has normal bowel sounds. There is no abdominal distention. SKIN: There is no rash. There is no edema. There is no diaphoresis. NEURO: The patient is awake and alert but demented. The patient is not cooperative with neurologic exam. The patient has normal speech MUSCULOSKELETAL: Patient complains of pain in the right shoulder but he does not appear to increase when the shoulder is palpated. Patient allows palpation of bilateral hips without increase in moaning ED Course Vital Signs 02/05/19 18:03 Temperature 97.9 F Pulse Rate 85 Respiratory 14 Rate Blood Pressure 159/83 [Left] O2 Sat by Pulse 98 Oximetry ED Medical Decision Making - Lab Data Result diagrams: 02/05/19 23:04 02/05/19 21:31 Laboratory Tests 02/05/19 02/05/19 02/05/19 21:31 21:31 23:04 WBC 9.2 RBC 4.30 Hgb 12.8 Hct 40.0 MCV 93 MCH 30 MCHC 32 RDW 18.5 H Plt Count 205 Lymph % (Auto) Snack Stewardess [place] % (Auto) Snack Stewardess Eos % (Auto) Snack Stewardess Baso % (Auto) Snack Stewardess Lymph # Snack Stewardess [place] # Snack Stewardess Eos # Snack Stewardess Baso # Snack Stewardess Seg Neutrophils % Snack Stewardess Seg Neutrophils # Snack Stewardess Sodium 142 Potassium 4.6 Chloride 105.0 Carbon Dioxide 21 L Anion Gap 21 BUN 11 Creatinine 1.0 Estimated GFR > 60 BUN/Creatinine Ratio 11 Glucose 94 Calcium 10.0 Total Bilirubin 0.40 AST 31 ALT 16 Alkaline Phosphatase 77 Total Protein 6.0 L Albumin 3.4 L Albumin/Globulin Ratio 1.3 Blood Type O POSITIVE Antibody Screen Negative - Radiology Data Radiology results: report reviewed (CT pelvis, CT head, CT cervical spine, right shoulder x-ray, pelvis x-ray), image reviewed (CT pelvis, CT head, CT cervical spine, right shoulder x-ray, pelvis x-ray) interpreted by me: Right shoulder [id number] changes. Pelvis x-ray-no acute fracture [address] [address] Cat Scan Report Signed Patient: BIRD FRIAS MR#: [id number] : 1930 Acct:[id number] Age/Sex: 88 / F ADM Date: 02/05/19 Loc: ED Attending Dr: Ordering Physician: ARTIS AVERY MD Date of Service: 02/05/19 Procedure(s): CT pelvis wo con Accession Number(s): [id number] cc: ARTIS AVERY MD CT of the pelvis without contrast INDICATION: Pain following fall tonight Findings: No pelvic fluid or hematoma. There has been prior hysterectomy. There is moderate vascular calcification. Degenerative changes of the lumbar spine are seen with nearly grade 2 spondylolisthesis of L4 on L5 without definite spondylolysis. SI joints are widely patent. Arthritic changes of the hips are seen right greater than left. There is no fracture seen. IMPRESSION: Negative study. Automated exposure control was utilized to diminish radiation dose. Signer Name: Anthony Strickland MD Signed: 02/05/2019 9:03 PM Workstation Name: [id number] Transcribed By: JM Dictated By: Anthony Strickland MD Electronically Authenticated By: Anthony Strickland MD Signed Date/Time: 02/05/192102 DD/ 56 TD/TT: [address] [address] Cat Scan Report Signed Patient: BIRD FRIAS MR#: [id number] : 1930 Acct:[id number] Age/Sex: 88 / F ADM Date: 02/05/19 Loc: ED Attending Dr: Ordering Physician: ARTIS AVERY MD Date of Service: 02/05/19 Procedure(s): CT head/brain wo con Accession Number(s): [id number] cc: ARTIS AVERY MD NONENHANCED C T SCAN OF THE BRAIN: INDICATION / CLINICAL INFORMATION: 88 years Female; pain after fall. TECHNIQUE: Routine CT head without contrast. All CT scans at this location are performed using CT dose reduction for ALARA by means of automated exposure control. COMPARISON: None. FINDINGS: BRAIN / INTRACRANIAL CONTENTS: I do not see intracranial sequela from the trauma. I do not see scalp hematoma air-fluid level in the paranasal sinuses are middle ear cavity and mastoid air cells. No acute hemorrhage, mass effect, midline shift, hydrocephalus, or acute, large territorial infarct. No chronic infarct or focal atrophy. Extensive periventricular low density areas are seen due to microvascular faint angio mandie. Mild cortical involution is seen. CRANIOCERVICAL JUNCTION: No significant abnormality. ORBITS: No significant abnormality of visualized orbits. Banding Procedure is seen on the left side. SINUSES / MASTOIDS: No significant abnormality of the visualized paranasal sinuses or mastoid air cells. ADDITIONAL FINDINGS: Prominent vascular calcification is seen in the vertebral arteries and in the carotid arteries at the level of siphon. IMPRESSION: I do not see intracranial sequela from the trauma. Signer Name: Kuldeep Naylor MD Signed: 02/05/2019 9:04 PM Workstation Name: [id number] Transcribed By: BS Dictated By: Kuldeep Lopes MD Electronically Authenticated By: Lisa Lopes MD Signed Date/Time: 02/05/192103 DD/ 99 TD/TT: [address] [address] Cat Scan Report Signed Patient: BIRD FRIAS MR#: [id number] : 1930 Acct:[id number] Age/Sex: 88 / F ADM Date: 02/05/19 Loc: ED Attending Dr: Ordering Physician: ARTIS AVERY MD Date of Service: 02/05/19 Procedure(s): CT cervical spine wo con Accession Number(s): [id number] cc: ARTIS AVERY MD Exam: CT cervical spine History: pain after fall; Technique: Contiguous thin cut axial images obtained through the cervical spine. Sagittal and coronal reconstructions performed by the technologist. All CT scans at this location are performed using CT dose reduction for ALARA by means of automated exposure control. Findings: No priors. There is no evidence of fracture or traumatic subluxation. Vertebral bodies are normal in height and alignment. I do not see vertebral compression fracture. Prevertebral space is normal. In the transverse images, I do not see fracture involving the bony canal. Disc space is narrowed at C5-C6 disc level. Broad-based bony spur is seen extending bilaterally. At C6-C7 disc level also, broad-based bony spur is seen. No significant degenerative change seen in the uncinate or facet joints. Neuroforamina are narrowed laterally at C5-C6 and C6-C7 disc levels. Surrounding soft tissues are grossly normal. Calcification is seen in the carotid bifurcations. Impression: No signs of acute bony trauma to the cervical spine. Signer Name: Kuldeep Naylor MD Signed: 02/05/2019 9:06 PM Workstation Name: [id number] Transcribed By: BS Dictated By: Kuldeep Lopes MD Electronically Authenticated By: Kuldeep Lopes MD Signed Date/Time: 02/05/192105 DD/ 03 TD/TT: [address] [address] XRay Report Signed Patient: BIRD FRIAS MR#: [id number] : 1930 Acct:[id number] Age/Sex: 88 / F ADM Date: 02/05/19 Loc: ED Attending Dr: Ordering Physician: ARTIS AVERY MD Date of Service: 02/05/19 Procedure(s): XR shoulder 2+V RT Accession Number(s): [id number] cc: ARTIS AVERY MD Fluoro Time In Minutes: Right shoulder, 3 views INDICATION: Pain following fall tonight FINDINGS: There are extensive arthritic changes of the right shoulder with narrowing of the glenohumeral joint space as well as superior subluxation of the humeral head. There are erosive changes and subchondral sclerosis as well as spurring consistent with advanced degenerative change. No fracture or dislocation seen however. Signer Name: Anthony Strickland MD Signed: 02/05/2019 9:09 PM Workstation Name: [id number] Transcribed By: RIVER Dictated By: Anthony Strickland MD Electronically Authenticated By: Anthony Strickland MD Signed Date/Time: 02/05/192108 DD/ 07 TD/TT: [facility] [address] [place] [address] XRay Report Signed Patient: BIRD FRIAS MR#: [id number] 253 : 1930 A cct:[id number] Age/Sex: 88 / F ADM Date: 02/05/19 Loc: ED Attending Dr: Ordering Physician: ARTIS AVERY MD Date of Service: 02/05/19 Procedure(s): XR hips BILAT 2V w/pelvis Accession Number(s): [id number] cc: ARTIS AVERY MD Fluoro Time In Minutes: Bilateral hips, 3 views INDICATION: Right hip pain following fall tonight FINDINGS: Left hip shows [id number] degenerative change present otherwise negative. I am suspicious of an impacted fracture of the right femoral neck however although this is not definite. Further evaluation with CT may be of benefit. Signer Name: Anthony Strickland MD Signed: 02/05/2019 9:11 PM Workstation Name: [id number] Transcribed By: RIVER Dictated By: Anthony Strickland MD Electronically Authenticated By: Anthony Strickland MD Signed Date/Time: 02/05/192110 DD/ 08 TD/TT: - Differential Diagnosis closed head injury, hip fracture, shoulder fracture Critical care attestation.: If time is entered above; I have spent that time in minutes in the direct care of this critically ill patient, excluding procedure time. ED Disposition Clinical Impression: Contusion of right shoulder, Degenerative joint disease, shoulder, right Disposition: DC-01 TO HOME OR SELFCARE Is pt being admited?: No Does the pt Need Aspirin: No Condition: Stable Prescriptions: Ibuprofen [Motrin 800 MG tab] 800 mg PO Q8HR PRN #20 tablet PRN Reason: Pain, Moderate (4-6) HYDROcodone/APAP 5-325 [[place] 5/325] 1 - 2 each PO Q6HR PRN #20 tablet PRN Reason: Pain Referrals: PRIMARY CARE, [Primary Care Provider] - 3-5 Days ZACH FRANK MD [Staff Physician] - [facility] (Dr. Frank is an Orthopedic surgeon. Please follow up with him for further evaluation) Time of Disposition: 23:31
[2019-02-05] MEDS ORDERED: HYDROcodone/ACETAMINOPHEN 5-325 MG TAB PO ONE (19:27)
--- NOTE | 2019-02-05 21:08 | Cat Scan Report ---
CT of the pelvis without contrast INDICATION: Pain following fall tonight Findings: No pelvic fluid or hematoma. There has been prior hysterectomy. There is moderate vascular calcification. Degenerative changes of the lumbar spine are seen with nearly grade 2 spondylolisthesi s of L4 on L5 without definite spondylolysis. SI joints are widely patent. Arthritic changes of the h ips are seen right greater than left. There is no fracture seen. IMPRESSION: Negative study. Automated exposure control was utilized to diminish radiation dose. Signer Name: Anthony Strickland MD Signed: 02/05/2019 9:03 PM Workstation Name: [id number]
--- NOTE | 2019-02-05 21:08 | Cat Scan Report ---
NONENHANCED CT SCAN OF THE BRAIN: INDICATION / CLINICAL INFORMATION: 88 years Female; pain after fall. TECHNIQUE: Routine CT head without contrast. All CT scans at this location are performed using CT dos e reduction for ALARA by means of automated exposure control. COMPARISON: None. FINDINGS: BRAIN / INTRACRANIAL CONTENTS: I do not see intracranial sequela from the trauma. I do not see scalp hematoma air-fluid level in the paranasal sinuses are middle ear cavity and mastoid air cells. No acute hemorrhage, mass effect, midline shift, hydrocephalus, or acute, large territorial infarct. No chronic infarct or focal atrophy. Extensive periventricular low density areas are seen due to bria rovascular faint angiopathy. Mild cortical involution is seen. CRANIOCERVICAL JUNCTION: No significant abnormality. ORBITS: No significant abnormality of visualized orbits. Banding Procedure is seen on the left side. SINUSES / MASTOIDS: No significant abnormality of the visualized paranasal sinuses or mastoid air kody ls. ADDITIONAL FINDINGS: Prominent vascular calcification is seen in the vertebral arteries and in the ca rotid arteries at the level of siphon. IMPRESSION: I do not see intracranial sequela from the trauma. Signer Name: Kuldeep Naylor MD Signed: 02/05/2019 9:04 PM Workstation Name: [id number]
--- NOTE | 2019-02-05 21:10 | Cat Scan Report ---
Exam: CT cervical spine History: pain after fall; Technique: Contiguous thin cut axial images obtained through the cervical spine. Sagittal and vivar l reconstructions performed by the technologist. All CT scans at this location are performed using CT dose reduction for ALARA by means of automated exposure control. Findings: No priors. There is no evidence of fracture or traumatic subluxation. Vertebral bodies are normal in height and alignment. I do not see vertebral compression fracture. Pre vertebral space is normal. In the transverse images, I do not see fracture involving the bony canal. Disc space is narrowed at C5-C6 disc level. Broad-based bony spur is seen extending bilaterally. At C 6-C7 disc level also, broad-based bony spur is seen. No significant degenerative change seen in the uncinate or facet joints. Neuroforamina are narrowed l aterally at C5-C6 and C6-C7 disc levels. Surrounding soft tissues are grossly normal. Calcification is seen in the carotid bifurcations. Impression: No signs of acute bony trauma to the cervical spine. Signer Name: Kuldeep Naylor MD Signed: 02/05/2019 9:06 PM Workstation Name: [id number]
--- NOTE | 2019-02-05 21:13 | XRay Report ---
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 There are erosive changes and howell bchondral sclerosis as well as spurring consistent with advanced degenerative change. No fracture or dislocation seen however. Signer Name: Anthony Strickland MD Signed: 02/05/2019 9:09 PM Workstation Name: [id number]
--- NOTE | 2019-02-05 21:15 | XRay Report ---
Bilateral hips, 3 views INDICATION: Right hip pain following fall tonight FINDINGS: Left hip shows [id number] degenerative change present otherwise negative. I am suspic ious of an impacted fracture of the right femoral neck however although this is not definite. Further evaluation with CT may be of benefit. Signer Name: Anthony Strickland MD Signed: 02/05/2019 9:11 PM Workstation Name: [id number]
[2019-02-05 22:09] LABS: Alanine Aminotransferase 16 units/L (7-56); Albumin 3.4 g/dL (3.9-5); BUN/Creatinine Ratio 11; Blood Urea Nitrogen 11 mg/dL (7-17); Hemolysis Index 60
[2019-02-05] MEDS ORDERED: diphenhydrAMINE 25 MG/10 ML ORAL LIQUID PO ONE (22:49)
[2019-02-05] MEDS ORDERED: ONDANSETRON 4 MG/2 ML INJ IM ONE (22:49)
[2019-02-05] MEDS ORDERED: fentaNYL 100 MCG/2 ML INJ IM ONE (22:49)
[2019-02-05 23:24] LABS: Hemoglobin 12.8 gm/dl (10.1-14.3); Mean Corpuscular HGB Conc 32 % (30-34); Mean Corpuscular Volume 93 fl (79-97); Platelet Count 205 K/mm3 (140-440); Red Cell Distribution Width 18.5 % (13.2-15.2)
[2019-02-06 01:22] VITALS: BP 158/71
== END 2019-02-05 23:55 | disposition home or self-care (01) ==
LOC: ED 16:53
DX: S40.011A Contusion of right shoulder, initial encounter (principal); I10 Essential (primary) hypertension; E11.9 Type 2 diabetes mellitus without complications; Z88.1 Allergy status to other antibiotic agents; Z88.8 Allergy status to other drugs, medicaments and biological substances; Z91.018 Allergy to other foods; Z79.899 Other long term (current) drug therapy; Z79.82 Long term (current) use of aspirin; Z79.1 Long term (current) use of non-steroidal anti-inflammatories (NSAID); W01.198A Fall on same level from slipping, tripping and stumbling with subsequent striking against other object, initial encounter; Y93.89 Activity, other specified; Y92.89 Other specified places as the place of occurrence of the external cause; Y99.8 Other external cause status
CPT/HCPCS: 36415; 70450; 72125; 72192; 73030; 73521; 80053; 85025; 86850; 86900; 86901; 99285; J1170; J2405; J3010; Q0163